=== PATIENT | male | born 1960 | race Caucasian/White ===

== ENCOUNTER 2017-06-28 14:11 | Inpatient (IN) | payer BC, OTHER ==
--- NOTE | 2017-06-28 14:31 | DR.SOBA ---
HPI - Time Seen Time seen: 14:30 - Primary Care Physician Primary Care Physician: TRENA - HPI Comment HPI Comment: PATIENT ON HOME OXYGEN. LOW OXYGEN SATURATION IN ED. WEAK AND NOT FEELING GOOD. - Complaints Chief Complaint Doctors Comments: INCREASING SOB, CHEST PAIN, FEVER, CHILLS AND WEAKNESS TIMES FEW DAYS. TODAY, WORSE AND GLUCOSE HIGH. Chief Complaint:: DIFF BREATHING, WITH WEAKNESS. LOW GRADE FEVER AND SHAKING CHILLS, RED AREA TO RIGHT LATERAL ABD Self Treatment fo Chief Complaint: USES HOME O2 - Reviewed Nurses Notes Reviewed: Yes - Source History Provided: Patient, EMS - Mode of Arrival Mode of Arrival: EMS - Timing Onset of Chief Complaint: 06/28/17 - Duration Duration: Days - Context Onset:: At Rest PE Risk Factors:: None History of:: COPD, CHF, Hyperventiliation Currently on:: Inhaled Bronchodilators Prehospital Care:: Inhaled B2 - Modifying Factors Worsens:: Lying Flat Improves:: Other (NONE) - Associated Signs and Symptoms Associated Signs and Symptoms: Fever, Wheeze, Cough, Nasal Congestion, Chest Pain, Leg Swelling - If Chest Pain Quality: Sharp, Pressure like Location: Substernal, Chest Wall - If Cough Cough: Productive, Yellow PMH - PMH Past Medical History: Yes Past Medical History: Arthritis, Asthma, CHF, COPD, Diabetes, Gout, Headaches, Hypertension, Kidney Stones Past Surgical History: Yes Surgical History: Appendectomy, Ortho Surgery - Family History History of Family Medical Conditions: Yes Family Medical History: Diabetes Mellitus, [place], Sudden Cardiac , Hypertension - Social History Type of Tobacco Use: None Alcohol Use: None Do you use any recreational Drugs:: No Lives With: Alone Lives Where: Home - infectious screening In the last 2 months have you had wt loss of >10#?: NO Have you had fever, night sweats or hemotysis?: No Have you traveled outside the country in the last 6 months?: No Isolation: Standard ROS - Review of Systems Constitutional: Chills, Weakness, Fatigue, Loss of Appetite Eyes: No Symptoms Reported. negative: Eye Pain, Discharge ENTM: No Symptoms Reported, Nose Discharge, Nose Congestion, Throat Pain. negative: Ear Pain Respiratoy: Productive Cough, Short of Breath, Wheezing Cardiovascular: Chest Pain, Edema, Palpitations Gastrointestinal/Abdominal: Abdominal Pain, Nausea Genitourinary: No Symptoms Reported. negative: Dysuria, Frequency, Hematuria Neurological: Headache, Weakness, Dizziness Musculoskeletal: Muscle Pain Integumentary: Change in Color, Rash (ABDOMINAL WALL) Hematologic/Lymphatic: Easy Bleeding, Easy Bruising Endocrine: Increased Thirst, Increased Urine All Other Systems: Reviewed and Negative PE - Vital Signs Vitals: Temperature 100.0 F Pulse Rate 119 Respiratory Rate 22 Blood Pressure [Right Arm] 121/60 Blood Pressure [Left Arm] 169/90 Blood Pressure 135/70 O2 Sat by Pulse Oximetry 94 - General Limitations: No Limitations General Appearance: Alert - Head Head Exam: Normal Inspection - Eyes Eye exam: Normal Appearance - ENT ENT Exam: Normal External Ear Exam - Neck Neck Exam: Trachea Midline - Chest Chest Inspection: Symmetric Chest Wall Rise - Respiratory Respiratory Exam: Accessory Muscle Use, Respiratory Distress Respiratory Exam: Bilateral Wheezing, Bilateral Rales, Bilateral Rhonchi, Upper Wheezing, Upper Rhonchi, Lower Wheezing, Lower Rales, Lower Rhonchi - Cardiovascular Cardiovascular Exam: Regular Rate, Normal Rhythm, Normal Heart Sounds - Abdominal Exam Abdominal Exam: Normal Bowel Sounds, Soft. negative: Tenderness - Extremities Extremities Exam: Edema - Back Back Exam: Normal Inspection - Neurologic Neurological Exam: Alert, Oriented X3 - Psychiatric Psychiatric Exam: Anxious - Skin Skin Exam: Erythema MDM - Differential Diagnosis Differential Diagnosis: Bronchitis, CHF, COPD, Mycardial Infarction, Pneumonia, Pneumothorax, Pulmonary embolism, Respiratory Insufficiency Course - Treatment Treatment: SEE ORDERS. IV FLUIDS AND IV ANTIBIOTICS IN ED. - Consultation Consultation Comments: DISCUSS PATIENT WITH DR. ALBRECHT. HE WILL ADMIT PATIENT. - Education/Counseling Education/Counseling: Patient, Education Educated On: Treatment, Diagnosis ROR - Labs Reviewed Laboratory Results Reviewed?: Yes Result Diagrams: 06/30/17 04:11 06/30/17 04:11 Laboratory: 06/28/17 14:40 Blood Blood Culture - Preliminary 06/28/17 14:40 Blood Blood Culture - Preliminary WBC 8.1 X10^3/uL (3.6-10.0) 06/30/17 04:11 RBC 4.21 X10^6/uL (4.7-6.0) L 06/30/17 04:11 Hgb 12.5 g/dL (13.5-18.0) L 06/30/17 04:11 Hct 38.6 % (42.0-54.0) L 06/30/17 04:11 MCV 91.9 fL (80.0-100.0) 06/30/17 04:11 MCH 29.7 pg (27.0-34.0) 06/30/17 04:11 MCHC 32.4 g/dL (33.0-35.0) L 06/30/17 04:11 RDW 15.4 % (11.6-16.5) 06/30/17 04:11 Plt Count 108 X10^3/uL (150.0-450.0) L 06/30/17 04:11 Plt Count Comment Decreased (ADEQUATE) 06/29/17 04:55 MPV 8.1 fL (7.4-11.0) 06/30/17 04:11 Neut % 81.8 % (42.0-75.0) H 06/30/17 04:11 Lymph % 10.6 % (21.0-51.0) L 06/30/17 04:11 [place] % 4.9 % (0.0-13.0) 06/30/17 04:11 Eos % 2.0 % (0.9-2.9) 06/30/17 04:11 Baso % 0.7 % (0.2-1.0) 06/30/17 04:11 Neut # 6.7 x10^3/uL (2.2-4.8) H 06/30/17 04:11 Lymph # 0.9 X10^3/uL (1.3-2.9) L 06/30/17 04:11 [place] # 0.4 x10^3/uL (0.3-0.8) 06/30/17 04:11 Eos # 0.2 x10^3/uL (0.0-0.2) 06/30/17 04:11 Baso # 0.1 X10^3/uL (0.0-0.1) 06/30/17 04:11 Absolute Nucleated RBC 0.3 /100WBC 06/30/17 04:11 Total Counted 100 06/29/17 04:55 Neutrophils % (Manual) 82 % (39-76) H 06/29/17 04:55 Band Neutrophils % 11 % (0-10) H 06/29/17 04:55 Lymphocytes % (Manual) 6 % (13-43) L 06/29/17 04:55 Monocytes % (Manual) 1 % (4-9) L 06/29/17 04:55 Plt Morphology Comment Normal (NORMAL) 06/29/17 04:55 RBC Morphology Normal (NORMAL) 06/29/17 04:55 Hypochromasia Slight A 06/28/17 14:40 Stomatocytes Present 06/28/17 14:40 Sample Site Lrad 06/30/17 05:50 ABG pH 7.300 (7.35-7.45) L 06/30/17 05:50 ABG pCO2 74.0 mmHg (35.0-45.0) H* 06/30/17 05:50 ABG pO2 57.0 mmHg (80.0-100.0) L 06/30/17 05:50 ABG HCO3 36.4 mmol/L (22-26) H* 06/30/17 05:50 ABG O2 Saturation 86.0 % (90-100) L 06/30/17 05:50 ABG Base Excess 7.5 mmol/L (-2.0-2.0) H 06/30/17 05:50 Clint Test Pos 06/30/17 05:50 A-a Gradient 79.0 mmHg 06/30/17 05:50 FiO2 32.000 06/30/17 05:50 Blood Gas Comments [place] abg well-mtf 06/30/17 05:50 Sodium 139 mmol/L (136-145) 06/30/17 04:11 Corrected Sodium 142 mmol/L (136-145) 06/30/17 04:11 Potassium 4.2 mmol/L (3.5-5.1) 06/30/17 04:11 Chloride 102 mmol/L (98-107) 06/30/17 04:11 Carbon Dioxide 33.0 mmol/L (21-32) H 06/30/17 04:11 BUN 11 mg/dL (7-18) 06/30/17 04:11 Creatinine 1.33 mg/dL (0.70-1.30) H 06/30/17 04:11 Est GFR (MDRD) Af Amer > 60 (>60) 06/30/17 04:11 Est GFR (MDRD) Non-Af 59 (>60) 06/30/17 04:11 Glucose 238 mg/dL (65-99) H 06/30/17 04:11 Hemoglobin A1c 12.2 % (4.5-6.2) H 06/29/17 04:55 Calcium 7.4 mg/dL (8.5-10.1) L 06/30/17 04:11 Corrected Calcium 8.7 mg/dL (8.5-10.1) 06/30/17 04:11 Total Bilirubin 0.30 mg/dL (0.2-1.0) 06/30/17 04:11 AST 24 Units/L (15-37) 06/30/17 04:11 ALT 19 Units/L (12-78) 06/30/17 04:11 Alkaline Phosphatase 111 Units/L (46-116) 06/30/17 04:11 Creatine Kinase 22 Units/L (39-308) L 06/29/17 04:55 CK-MB (CK-2) < 1.0 ng/mL (0-4.0) 06/29/17 04:55 CK/CKMB % Calc 4.6 % (<4) 06/29/17 04:55 Troponin I < 0.02 ng/mL (0-1.5) 06/29/17 04:55 B-Natriuretic Peptide 52.3 pg/mL (0-79) 06/28/17 14:40 Total Protein 6.1 g/dL (6.4-8.2) L 06/30/17 04:11 Albumin 2.4 g/dL (3.4-5.0) L 06/30/17 04:11 Globulin 3.7 g/dL (2.5-4.5) 06/30/17 04:11 Albumin/Globulin Ratio 0.6 Ratio (1.1-2.1) L 06/30/17 04:11 Specimen Type Clean catch urine 06/28/17 16:14 Urine Color Yellow (YELLOW) 06/28/17 16:14 Urine Appearance Slightly hazy (CLEAR) 06/28/17 16:14 Urine pH 8.0 (5.0 - 8.0) 06/28/17 16:14 Ur Specific [place] 1.010 (1.000-1.030) 06/28/17 16:14 Urine Protein 2+ (NEGATIVE) 06/28/17 16:14 Urine Glucose (UA) 4+ (NEGATIVE) 06/28/17 16:14 Urine Ketones 3+ (NEGATIVE) 06/28/17 16:14 Urine Occult Blood 1+ (NEGATIVE) 06/28/17 16:14 Urine Nitrite Negative (NEGATIVE) 06/28/17 16:14 Urine Bilirubin Negative (NEGATIVE) 06/28/17 16:14 Urine Urobilinogen Normal (NORMAL) 06/28/17 16:14 Ur Leukocyte Esterase 1+ (NEGATIVE) 06/28/17 16:14 Urine RBC 8-10 /HPF (NEGATIVE) 06/28/17 16:14 Urine WBC 2-3 /HPF (NEGATIVE) 06/28/17 16:14 Ur Squamous Epith Cells Few /HPF (NEGATIVE) 06/28/17 16:14 Amorphous Sediment Trace /HPF (NEGATIVE) 06/28/17 16:14 Urine Bacteria Trace /HPF (NEGATIVE) 06/28/17 16:14 Ur Culture Indicated? No/not indicated 06/28/17 16:14 - XRAY XRAY Interpreted by: Radiologist XRAY Findings: REPORT DISCUSS WITH PATIENT. - EKG Rhythm: NSR (EKG NOTED) - Diagnosis Discharge Problem: Hyperglycemia, Cellulitis, abdominal wall Pneumonia Qualifiers: Pneumonia type: due to unspecified organism Laterality: right Lung location: lower lobe of lung Qualified Code(s): J18.1 - Lobar pneumonia, unspecified organism - Discharge Plan Disposition: ADMITTED INPATIENT Condition: Stable - Follow ups/Referrals - Instructions
[2017-06-28 15:14] LABS: BASOPHILS % (AUTO) 0.1 % (0.2-1.0); EOSINOPHILS % (AUTO) 0.3 % (0.9-2.9); HEMATOCRIT 41.7 % (42.0-54.0); HEMOGLOBIN 13.2 g/dL (13.5-18.0); LYMPHOCYTES # (AUTO) 0.3 X10^3/uL (1.3-2.9); LYMPHOCYTES % (AUTO) 1.8 % (21.0-51.0); MEAN CORPUSCULAR HEMOGLOBIN 29.3 pg (27.0-34.0); MEAN CORPUSCULAR HGB CONC 31.6 g/dL (33.0-35.0); MEAN CORPUSCULAR VOLUME 92.8 fL (80.0-100.0); MEAN PLATELET VOLUME 6.7 fL (7.4-11.0); MONOCYTES # (AUTO) 0.3 x10^3/uL (0.3-0.8); MONOCYTES % (AUTO) 1.8 % (0.0-13.0); NEUTROPHILS # (AUTO) 16.2 x10^3/uL (2.2-4.8); PLATELET COUNT 157 X10^3/uL (150.0-450.0); RED CELL DISTRIBUTION WIDTH 14.8 % (11.6-16.5); WHITE BLOOD COUNT 16.9 X10^3/uL (3.6-10.0)
[2017-06-28 15:30] LABS: ALANINE AMINOTRANSFERASE 22 Units/L (12-78); ALKALINE PHOSPHATASE 146 Units/L (46-116); ASPARTATE AMINO TRANSFERASE 14 Units/L (15-37); BLOOD UREA NITROGEN 9 mg/dL (7-18); CALCIUM 7.9 mg/dL (8.5-10.1); CARBON DIOXIDE 37.6 mmol/L (21-32); CHLORIDE 98 mmol/L (98-107); CKMB % 4.2 % (<4); COR CA(FOR HYPOALB) 8.7 mg/dL (8.5-10.1); COR NA(FOR HYPERGLY) 143 mmol/L (136-145); CREATINE KINASE 24 Units/L (39-308); CREATINE KINASE MB < 1.0 ng/mL (0-4.0); CREATININE 1.26 mg/dL (0.70-1.30); GLUCOSE 349 mg/dL (65-99); SODIUM 137 mmol/L (136-145); TROPONIN I < 0.02 ng/mL (0-1.5); eGFR BLACK RACES > 60 (>60); eGFR NON BLACK RACES > 60 (>60)
[2017-06-28 15:44] LABS: B-TYPE NATRIURETIC PEPTIDE 52.3 pg/mL (0-79)
[2017-06-28 15:54] LABS: BAND NEUTROPHILS % 15 % (0-10); HYPOCHROMASIA SLIGHT; PLATELET MORPHOLOGY COMMENT NORMAL (NORMAL)
[2017-06-28 15:55] LABS: STOMATOCYTES PRESENT
[2017-06-28 16:21] LABS: BILIRUBIN,URINE NEGATIVE (NEGATIVE); BLOOD/HEMOGLOBIN,URINE 1+ (NEGATIVE); GLUCOSE, URINE 4+ (NEGATIVE); KETONES,URINE 3+ (NEGATIVE); LEUKOCYTE ESTERASE ,URINE 1+ (NEGATIVE); NITRITES,URINE NEGATIVE (NEGATIVE); PROTEIN,URINE 2+ (NEGATIVE); UROBILINOGEN,URINE NORMAL (NORMAL)
[2017-06-28 16:33] LABS: AMORPHOUS SEDIMENT,UR TRACE /HPF (NEGATIVE); APPEARANCE,URINE SLIGHTLY HAZY (CLEAR); BACTERIA,URINE TRACE /HPF (NEGATIVE); COLOR,URINE YELLOW (YELLOW); SQUAMOUS EPITHELIAL CELL,UR FEW /HPF (NEGATIVE)
[2017-06-28] MEDS ORDERED: TYLENOL 500 MG TAB EXTRA STRENGTH PO ONE ×2 (17:14→17:25)
[2017-06-28] MEDS: NS 1000 ML 1,000 ML IV SCH (17:38)
[2017-06-28] MEDS ORDERED: ZOSYN VIAL 3.375 GM 3.375 GM in NS 100 ML IV + SPIKE MINIBAG* 100 ML IV ONE (17:42)
--- NOTE | 2017-06-28 17:58 | CT ---
HISTORY: difficulty breathing Study: CT chest without contrast. Comparison: 10/10/2014. Technique: Multiple axial images of the chest were obtained from the thoracic inlet to the upper abd omen without the administration of IV contrast. Automated dose control was utilized. Findings: The thyroid gland is unremarkable. The aorta and pulmonary arteries are normal caliber. There small lymph nodes scattered along the right paratracheal and pretracheal region measuring up to 10 mm whic h are unchanged. There is a 2.5 cm subcarinal lymph node on the right which measured 3.2 cm previous ly. There is mild pleural-based opacities along the right lower lobe posteriorly which extends super iorly and is less prominent . There is a small 3 mm subpleural nodule along the right upper lobe pos teriorly seen on image 21 of series 5 and is more apparent . No effusion is seen. There is no pneumo thorax. No fracture is seen. The adrenals are normal and the visualized upper abdomen is otherwise u nremarkable. Moderate degenerative changes are seen throughout the spine with no aggressive osseous lesion. IMPRESSION: Mild subsegmental atelectasis vs scarring or early infiltrates along the right lower lobe which is l ess prominent, recommend followup to assure stability. 3 mm subpleural nodule along the right upper lobe posteriorly which is more apparent, suggest short -term followup . Mildly enlarged mediastinal lymph nodes which are less prominent or unchanged . Suggest continued fo llowup to assure long-term stability. Reported By:
[2017-06-28] MEDS ORDERED: NS 100 ML IV + SPIKE MINIBAG* 100 ML IV ONE (18:02)
[2017-06-28] MEDS ORDERED: ZOSYN VIAL 3.375 GM IV ONE (18:03)
[2017-06-28] MEDS ORDERED: TYLENOL 325 MG TAB PO PRN (21:45)
[2017-06-28 21:46] LABS: CKMB % 3.9 % (<4); CREATINE KINASE 26 Units/L (39-308); CREATINE KINASE MB < 1.0 ng/mL (0-4.0); TROPONIN I < 0.02 ng/mL (0-1.5)
[2017-06-28] MEDS: CLEOCIN 600 MG IV PREMIX 600 MG/50 ML BAG IV SCH (21:47)
[2017-06-28] MEDS: HumuLIN R SC PRN (21:48)
[2017-06-28 22:23] LABS: ABG ALLEN TEST POS; ABG HCO3 41.1 mmol/L (22-26)
[2017-06-28] MEDS ORDERED: SALINE 3% 15 ML NEB TX NEB ONE (23:17)
[2017-06-28] MEDS: NYSTATIN POWDER TOP SCH (23:18)
[2017-06-29] MEDS: DUONEB 0.5 MG/3 MG NEB SCH ×4 (00:37→17:15)
[2017-06-29] MEDS: ZOSYN VIAL 3.375 GM 3.375 GM in NS 100 ML IV + SPIKE MINIBAG* 100 ML IV SCH ×4 (01:20→21:17)
[2017-06-29] MEDS: NS 1000 ML 1,000 ML IV SCH ×5 (01:21→21:19)
[2017-06-29 05:28] LABS: BASOPHILS % (AUTO) 0.2 % (0.2-1.0); EOSINOPHILS % (AUTO) 0.1 % (0.9-2.9); HEMATOCRIT 39.2 % (42.0-54.0); HEMOGLOBIN 12.4 g/dL (13.5-18.0); LYMPHOCYTES # (AUTO) 0.7 X10^3/uL (1.3-2.9); LYMPHOCYTES % (AUTO) 5.4 % (21.0-51.0); MEAN CORPUSCULAR HEMOGLOBIN 28.9 pg (27.0-34.0); MEAN CORPUSCULAR HGB CONC 31.7 g/dL (33.0-35.0); MEAN CORPUSCULAR VOLUME 91.4 fL (80.0-100.0); MEAN PLATELET VOLUME 6.5 fL (7.4-11.0); MONOCYTES # (AUTO) 0.3 x10^3/uL (0.3-0.8); MONOCYTES % (AUTO) 2.8 % (0.0-13.0); NEUTROPHILS % (AUTO) 91.5 % (42.0-75.0); PLATELET COUNT 133 X10^3/uL (150.0-450.0); RED BLOOD COUNT 4.29 X10^6/uL (4.7-6.0); RED CELL DISTRIBUTION WIDTH 15.3 % (11.6-16.5)
[2017-06-29 05:34] LABS: ABG BASE EXCESS 11.7 mmol/L (-2.0-2.0)
[2017-06-29 05:36] LABS: ABG ALLEN TEST POS
[2017-06-29 05:47] LABS: ALANINE AMINOTRANSFERASE 20 Units/L (12-78); ALBUMIN 2.5 g/dL (3.4-5.0); ALKALINE PHOSPHATASE 122 Units/L (46-116); ASPARTATE AMINO TRANSFERASE 14 Units/L (15-37); BLOOD UREA NITROGEN 9 mg/dL (7-18); CALCIUM 7.6 mg/dL (8.5-10.1); CARBON DIOXIDE 36.6 mmol/L (21-32); CHLORIDE 100 mmol/L (98-107); CKMB % 4.6 % (<4); COR CA(FOR HYPOALB) 8.8 mg/dL (8.5-10.1); COR NA(FOR HYPERGLY) 141 mmol/L (136-145); CREATINE KINASE 22 Units/L (39-308); CREATINE KINASE MB < 1.0 ng/mL (0-4.0); CREATININE 1.11 mg/dL (0.70-1.30); GLUCOSE 280 mg/dL (65-99); SODIUM 137 mmol/L (136-145); TOTAL PROTEIN 6.1 g/dL (6.4-8.2); TROPONIN I < 0.02 ng/mL (0-1.5); eGFR BLACK RACES > 60 (>60); eGFR NON BLACK RACES > 60 (>60)
[2017-06-29 06:01] LABS: BAND NEUTROPHILS % 11 % (0-10); PLATELET MORPHOLOGY COMMENT NORMAL (NORMAL)
[2017-06-29] MEDS: CLEOCIN 600 MG IV PREMIX 600 MG/50 ML BAG IV SCH (06:02)
[2017-06-29] MEDS: HumuLIN R SC PRN ×3 (06:22→21:19)
[2017-06-29] MEDS ORDERED: PATIENT'S HOME MEDICATION (Budesonide/Formoterol Fumarate [Symbicort 160-4.5 Mcg/Act (6 G) INH SCH (10:45)
[2017-06-29] MEDS ORDERED: PATIENT'S HOME MEDICATION (Folic Acid [Folic Acid] 1 MG) PO SCH (10:45)
[2017-06-29] MEDS ORDERED: NIFEDIPINE 30 MG PO SCH (10:45)
[2017-06-29] MEDS ORDERED: PATIENT'S HOME MEDICATION (Losartan Potassium [Losartan Potassium] 100 MG) PO SCH (10:45)
[2017-06-29] MEDS ORDERED: PHARMACY CONSULT - DOSE _____ XX SCH (11:00)
--- NOTE | 2017-06-29 11:50 | DR.H&P ---
H&P - History & Physical for Day of: H&P Date: 06/29/17 - Chief Complaint Chief Complaint: SHORTNSS OF BREATH, WEAKNESS, FEVER, REDNESS TO ABDOMEN - Allergies Allergies/Adverse Reactions: Allergies Allergy/AdvReac Type Severity Reaction Status Date / Time No Known Drug Allergies Allergy Verified 06/28/17 14:35 - History of Present Illness History of Present Illness: IS A 57 YEAR OLD PATIENT OF OURS WHO PRESENTED TO THE EMERGENCY ROOM WITH COMPLAINTS OF SHORTNESS OF BREATH, WEAKNESS , AND FEVER THAT STARTED THIS MORNING. HE ALSO COMPLAINED OF REDNESS TO RIGHT SIDE ABDOMEN. ON EXAMINATION, LUNGS WERE NOTED WITH SCATTERED WHEEZING. RIGHT SIDE ABDOMINAL FOLDS AND GROIN NOTED WITH REDNESS AND DRAINAGE. ON ARRIVAL TO ER , VITALS WERE 100.0, 119, 22, 94%, 135/70. CBC REPORTED WBC 16.9, RBC 4.50, HGB 13.2, HCT 41.7. CMP WNL EXCEPT CARBON DIOXIDE 37.6, GLUCOSE 349, CALCIUM 7.9 , AST 14, ALKALINE PHOSPHATASE 146, CREATINIE KINASE 24, ALBUMIN 3.0. ABG REPORTED PH 7.330, PC02 78, P02 107, HC03 41.1, 02 98. CARDIAC ENZYMES WNL. EKG REPORTED SINUS TACHYCARDIA WITH RATE OF 118. CHEST CT WAS OBTAINED AND REPORTED SUBSEGMENTAL ATELECTASIS VS SCARRING OR EARLY INFILTRATES ALONG THE RIGHT LOWER LOBE WHICH IS LESS PROMINENT, 3MM SUBPLEURAL NODULE ALONG THE RIGHT UPPER LOBE POSTERIORLY, AND MILDLY ENLARGED MEDIASTINAL LYMPH NODES WHICH ARE LESS PROMINENT OR UNCHANGED. HE WAS GIVEN TYLENOL 1 GM, ZYSUN 3.375GM, CLEOCIN 600MG , AND NEB TX IN ER. TEMPERATURE DECREASED TO 99.4. WE ADMITTED PATIENT FOR FURTHER TREATMENT AND EVALUATION. WE STARTED HIM ON CLEOCIN 600MG Q8H, ZOSYN 3.375 Q8H, NS @150ML/HR, NYSTATIN FOR WOUNDS, AND SLIDING SCALE INSULIN. WE PLANNED TO RECHECK LABS AND FOLLOW UP WITH PATIENT IN AM. - Past Medical History Past Medical History: Arthritis, Asthma, CHF, COPD, Coronary Artery Disease, Diabetes, Dyslipidemia, GERD, Gout, Headaches, Hypertension, Kidney Stones Additional Medical History: Cataracts, Glaucoma, Ear Infections, Pneumonia, Pulmonary Edema, Gout, Back Pain, Skin Cancer - Past Surgical History Surgical History: Appendectomy, Ortho Surgery Additional Surgical History: Cataract Surgery, Left Ankle - Family History Family Medical History: Diabetes Mellitus, [place], Sudden Cardiac , Hypertension - Social History Does patient currently use any type of tobacco product: No Have you used tobacco products in the last 12 months: No Type of Tobacco Use: None Alcohol Use: None Drug Use: None - Medications Home Medications: Aspirin [Adult Low Dose Aspirin EC] 1 tab PO DAILY 06/28/17 [History Confirmed 06/28/17] - Review of Systems Constitutional: See HPI, Fever, Weakness Eyes: denies: No Symptoms Reported, See HPI, Pain, Vision Change, Conjunctivae Inflammation, Eyelid Inflammation, Redness, Other ENT: No Symptoms Reported. denies: See HPI, Ear Pain, Ear Discharge, Nose Pain , Nose Discharge, Nose Congestion, Mouth Pain, Mouth Swelling, Throat Pain, Throat Swelling, Other Respiratory: See HPI, Shortness of Breath, SOB with Excertion, Wheezing Cardiovascular: No Symptoms Reported. denies: Chest Pain, See HPI, Palpitations , Orthopnea, Paroxysmal Noc. Dyspnea, Edema, Light Headedness, Other Gastrointestinal: No Symptoms Reported. denies: See HPI, Nausea, Vomiting, Abdominal Pain, Diarrhea, Constipation, Melena, Hematochezia, Other Genitourinary: No Symptoms Reported. denies: See HPI, Dysuria, Frequency, Incontinence, Hematuria, Retention, Other Musculoskeletal: No Symptoms Reported. denies: See HPI, Shoulder Pain, Arm Pain , Back Pain, Hand Pain, Leg Pain, Foot Pain, Neck Pain, Other Skin: See HPI, Rash, Wound. denies: No Symptoms Reported, Lesions, Jaundice, Bruising, Ecchymosis, Other Neurological: No Symptoms Reported. denies: See HPI, Weakness, Numbness, Incoordination, Change in Speech, Confusion, Seizures, Other - Physical Exam Vital Signs: Temperature 99.3 F Pulse Rate [Right Radial] 102 Pulse Rate 104 Respiratory Rate 22 Blood Pressure [Left Arm] 126/67 Blood Pressure 135/70 O2 Sat by Pulse Oximetry 93 Oriented: Normal. negative: Time, Person, Place, Not Oriented, Unable to test, Other Eyes: Normal. negative: Blurred Vision, Diplopia, Discharge, Pain, Redness, Photophobia, Other Ear: Normal. negative: Right, Left, Swelling, Ecchymosis, Hemotypanum, Abrasion , Laceration Nose: Normal. negative: Injected, Discharge, Blood, Other Throat: Normal. negative: Tonsillar Hypertrophy, Red, Exudate, Dry, Other Respiratory: Wheezes Throughout Cardiovascular: Tachycardia. negative: Normal : Normal. negative: Dysuria, Hematuria, Frequency, Discharge, Testicular Pain , Bleeding, , Other Auscultation: Bowel Sounds: Normal. negative: Bruit, Absent, Increased, Decreased, High Pitched, Other Palpation: Normal. negative: Spleen Enlarged, Liver Enlarged, Mass Pulsatile, Other Tenderness: Normal. negative: Diffuse, RUQ, RLQ, LUQ, LLQ, Epigastric, Periumbilical, Suprapubic, Mild, Moderate, Severe, Rebound, Guarding, Rigidity, Other Skin: Rash (ABDOMINAL FOLDS AND GROIN), Red, Wound Musculoskeletal: Normal. negative: Right, Left, Shoulder, Clavicle, Arm, Elbow , Forearm, Wrist, Hand, Hip, Thigh, Knee, Leg, Ankle, Foot, Back:Thoracic, Back: Lumbar, Back:Midline, Back:Paraspinous, Pelvis, Swelling, Tender, Deformity, Pulse Deficit, Motor Deficit, Sensory Deficit, Instability, Crepitance Psychiatric: Normal. negative: Anxiety, Depression, Agitation, Other Mood Description: Calm. negative: Angry, Apathetic, Depressed, Fearful, Flat, Happy, Hostile, Sad, Suspicious, Withdrawn, Anxious, Appropriate, Labile Affect: Normal Speech Pattern: Clear - Assessment/Plan (1) Pneumonia Qualifiers: Pneumonia type: due to unspecified organism Aspiration pneumonia type: A Laterality: right Lung location: lower lobe of lung Qualified Code(s): J18.1 - Lobar pneumonia, unspecified organism Status: Acute Plan: CLEOCIN 600MG IV Q8H, ZOSYN 3.375GM IV 8H, DUONEBS, SUPPLEMENTAL OXYGEN, CONTINUE TO MONITOR (2) Hyperglycemia Status: Acute Plan: SLIDING SCALE INSULIN, CHECK OTBS, CONTINUE TO MONITOR (3) Cellulitis of abdominal wall Status: Acute Plan: CLEOCIN 600MG IV Q8H, ZOSYN 3.375GM IV Q8H, NYSTATIN POWDER, CONTINUE TO MONITOR
[2017-06-29] MEDS: ZyrTEC TAB 10 MG PO SCH (12:16)
[2017-06-29] MEDS: ASPIRIN EC 81 MG PO SCH (12:16)
[2017-06-29] MEDS: ELIQUIS PO SCH ×2 (12:16→21:18)
[2017-06-29] MEDS: LEVAQUIN PREMIX IV 750 MG 750 MG/150 ML BAG IV SCH (12:17)
--- NOTE | 2017-06-29 13:31 | PCM.PROG ---
Progress Note - Progress Note for Day of Date: 06/29/17 - Subjective Subjective: IS ALERT AND ORIENTED, SITTING UP IN BED ON MORNING ROUNDS. HE IS NOTED WITH COMPLAINTS OF SHORTNESS OF BREATH, BILATERAL HIP PAIN, AND WEAKNESS. ABDOMINAL FOLDS AND GROIN REMAIN RED AND NOTED WITH DRAINING. PITTING EDEMA NOTED TO BILATERAL LOWER EXTREMITIES. LUNGS ARE NOTED WITH SCATTERED WHEEZING. VITALS THIS AM ARE 99.3-102-22-93%-126/67. CBC REPORTS WBC 12, RBC 4.29, HGB 12.4, HCT 39.2. CMP WNL EXCEPT CARBON DIOXIDE 36.6, GLUCOSE 280, A1C 12.2, CALCIUM 7.6, AST 14, ALKALINE PHOSPHATASE 122, CREATINE KINASE 22 , TOTAL PROTEIN 6.1, ALBUMIN 2.5. CARDIAC ENZYMES AND EKGS WNL. WE WILL DISCONTINUE CLEOCIN AND START LEVAQUIN IV DAILY. WE WILL ORDER TORADOL 30MG IV Q6H PRN FOR HIS HIP PAIN. WE PLAN TO RECHECK LABS AND FOLLOW UP WITH ANDREINA IN AM. - Past Medical Family Social History Past Med/Fam/Surg Hx: No changes since H&P Allergies: Allergies No Known Drug Allergies Allergy (Verified 06/28/17 14:35) - Review of Systems ROS: No change since H&P - Vital Signs and I&O's Vital Signs: Temperature 99.3 F Pulse Rate [Right Radial] 102 Pulse Rate 104 Respiratory Rate 22 Blood Pressure [Left Arm] 126/67 Blood Pressure 135/70 O2 Sat by Pulse Oximetry 93 Intake and Output: Intake & Output 06/27/17 06/28/17 06/29/17 06/30/17 11:59 11:59 11:59 11:59 Intake Total 1450 Output Total 550 Balance 900 - Physical Exam Oriented: Normal. negative: Time, Person, Place, Not Oriented, Unable to test, Other Eyes: Normal. negative: Blurred Vision, Diplopia, Discharge, Pain, Redness, Photophobia, Other Ear: Normal. negative: Right, Left, Swelling, Ecchymosis, Hemotypanum, Abrasion , Laceration Nose: Normal. negative: Injected, Discharge, Blood, Other Throat: Normal. negative: Tonsillar Hypertrophy, Red, Exudate, Dry, Other Respiratory: Right, Left, Wheezes Cardiovascular: Tachycardia. negative: Normal : Normal. negative: Dysuria, Hematuria, Frequency, Discharge, Testicular Pain , Bleeding, , Other Auscultation: Bowel Sounds: Normal. negative: Bruit, Absent, Increased, Decreased, High Pitched, Other Palpation: Normal Tenderness: Normal. negative: Diffuse, RUQ, RLQ, LUQ, LLQ, Epigastric, Periumbilical, Suprapubic, Mild, Moderate, Severe, Rebound, Guarding, Rigidity, Other Skin: Rash (ABDOMINAL FOLDS AND GROIN), Red, Wound Musculoskeletal: Normal. negative: Right, Left, Shoulder, Clavicle, Arm, Elbow , Forearm, Wrist, Hand, Hip, Thigh, Knee, Leg, Ankle, Foot, Back:Thoracic, Back: Lumbar, Back:Midline, Back:Paraspinous, Pelvis, Swelling, Tender, Deformity, Pulse Deficit, Motor Deficit, Sensory Deficit, Instability, Crepitance Psychiatric: Normal. negative: Anxiety, Depression, Agitation, Other Mood Description: Calm. negative: Angry, Apathetic, Depressed, Fearful, Flat, Happy, Hostile, Sad, Suspicious, Withdrawn, Anxious, Appropriate, Labile Affect: Normal Speech Pattern: Clear - Laboratory and Diagnostics Result Diagrams: 06/29/17 04:55 06/29/17 04:55 Labs: Laboratory WBC 12.0 X10^3/uL (3.6-10.0) H 06/29/17 04:55 RBC 4.29 X10^6/uL (4.7-6.0) L 06/29/17 04:55 Hgb 12.4 g/dL (13.5-18.0) L 06/29/17 04:55 Hct 39.2 % (42.0-54.0) L 06/29/17 04:55 MCV 91.4 fL (80.0-100.0) 06/29/17 04:55 MCH 28.9 pg (27.0-34.0) 06/29/17 04:55 MCHC 31.7 g/dL (33.0-35.0) L 06/29/17 04:55 RDW 15.3 % (11.6-16.5) 06/29/17 04:55 Plt Count 133 X10^3/uL (150.0-450.0) L 06/29/17 04:55 Plt Count Comment Decreased (ADEQUATE) 06/29/17 04:55 MPV 6.5 fL (7.4-11.0) L 06/29/17 04:55 Neut % 91.5 % (42.0-75.0) H 06/29/17 04:55 Lymph % 5.4 % (21.0-51.0) L 06/29/17 04:55 [place] % 2.8 % (0.0-13.0) 06/29/17 04:55 Eos % 0.1 % (0.9-2.9) L 06/29/17 04:55 Baso % 0.2 % (0.2-1.0) 06/29/17 04:55 Neut # 11.0 x10^3/uL (2.2-4.8) H 06/29/17 04:55 Lymph # 0.7 X10^3/uL (1.3-2.9) L 06/29/17 04:55 [place] # 0.3 x10^3/uL (0.3-0.8) 06/29/17 04:55 Eos # 0.0 x10^3/uL (0.0-0.2) 06/29/17 04:55 Baso # 0.0 X10^3/uL (0.0-0.1) 06/29/17 04:55 Absolute Nucleated RBC 0.1 /100WBC 06/29/17 04:55 Total Counted 100 06/29/17 04:55 Neutrophils % (Manual) 82 % (39-76) H 06/29/17 04:55 Band Neutrophils % 11 % (0-10) H 06/29/17 04:55 Lymphocytes % (Manual) 6 % (13-43) L 06/29/17 04:55 Monocytes % (Manual) 1 % (4-9) L 06/29/17 04:55 Plt Morphology Comment Normal (NORMAL) 06/29/17 04:55 RBC Morphology Normal (NORMAL) 06/29/17 04:55 Hypochromasia Slight A 06/28/17 14:40 Stomatocytes Present 06/28/17 14:40 Sample Site L rad 06/29/17 05:21 ABG pH 7.400 (7.35-7.45) 06/29/17 05:21 ABG pCO2 63.0 mmHg (35.0-45.0) H* 06/29/17 05:21 ABG pO2 45.0 mmHg (80.0-100.0) L* 06/29/17 05:21 ABG HCO3 39.0 mmol/L (22-26) H* 06/29/17 05:21 ABG O2 Saturation 81.0 % (90-100) L* 06/29/17 05:21 ABG Base Excess 11.7 mmol/L (-2.0-2.0) H 06/29/17 05:21 Clint Test Pos 06/29/17 05:21 A-a Gradient 26.0 mmHg 06/29/17 05:21 FiO2 21.000 06/29/17 05:21 Blood Gas Comments [place] well, afh 06/29/17 05:21 Sodium 137 mmol/L (136-145) 06/29/17 04:55 Corrected Sodium 141 mmol/L (136-145) 06/29/17 04:55 Potassium 4.2 mmol/L (3.5-5.1) 06/29/17 04:55 Chloride 100 mmol/L (98-107) 06/29/17 04:55 Carbon Dioxide 36.6 mmol/L (21-32) H 06/29/17 04:55 BUN 9 mg/dL (7-18) 06/29/17 04:55 Creatinine 1.11 mg/dL (0.70-1.30) 06/29/17 04:55 Est GFR (MDRD) Af Amer > 60 (>60) 06/29/17 04:55 Est GFR (MDRD) Non-Af > 60 (>60) 06/29/17 04:55 Glucose 280 mg/dL (65-99) H 06/29/17 04:55 Hemoglobin A1c 12.2 % (4.5-6.2) H 06/29/17 04:55 Calcium 7.6 mg/dL (8.5-10.1) L 06/29/17 04:55 Corrected Calcium 8.8 mg/dL (8.5-10.1) 06/29/17 04:55 Total Bilirubin 0.50 mg/dL (0.2-1.0) 06/29/17 04:55 AST 14 Units/L (15-37) L 06/29/17 04:55 ALT 20 Units/L (12-78) 06/29/17 04:55 Alkaline Phosphatase 122 Units/L (46-116) H 06/29/17 04:55 Creatine Kinase 22 Units/L (39-308) L 06/29/17 04:55 CK-MB (CK-2) < 1.0 ng/mL (0-4.0) 06/29/17 04:55 CK/CKMB % Calc 4.6 % (<4) 06/29/17 04:55 Troponin I < 0.02 ng/mL (0-1.5) 06/29/17 04:55 B-Natriuretic Peptide 52.3 pg/mL (0-79) 06/28/17 14:40 Total Protein 6.1 g/dL (6.4-8.2) L 06/29/17 04:55 Albumin 2.5 g/dL (3.4-5.0) L 06/29/17 04:55 Globulin 3.6 g/dL (2.5-4.5) 06/29/17 04:55 Albumin/Globulin Ratio 0.7 Ratio (1.1-2.1) L 06/29/17 04:55 Specimen Type Clean catch urine 06/28/17 16:14 Urine Color Yellow (YELLOW) 06/28/17 16:14 Urine Appearance Slightly hazy (CLEAR) 06/28/17 16:14 Urine pH 8.0 (5.0 - 8.0) 06/28/17 16:14 Ur Specific [place] 1.010 (1.000-1.030) 06/28/17 16:14 Urine Protein 2+ (NEGATIVE) 06/28/17 16:14 Urine Glucose (UA) 4+ (NEGATIVE) 06/28/17 16:14 Urine Ketones 3+ (NEGATIVE) 06/28/17 16:14 Urine Occult Blood 1+ (NEGATIVE) 06/28/17 16:14 Urine Nitrite Negative (NEGATIVE) 06/28/17 16:14 Urine Bilirubin Negative (NEGATIVE) 06/28/17 16:14 Urine Urobilinogen Normal (NORMAL) 06/28/17 16:14 Ur Leukocyte Esterase 1+ (NEGATIVE) 06/28/17 16:14 Urine RBC 8-10 /HPF (NEGATIVE) 06/28/17 16:14 Urine WBC 2-3 /HPF (NEGATIVE) 06/28/17 16:14 Ur Squamous Epith Cells Few /HPF (NEGATIVE) 06/28/17 16:14 Amorphous Sediment Trace /HPF (NEGATIVE) 06/28/17 16:14 Urine Bacteria Trace /HPF (NEGATIVE) 06/28/17 16:14 Ur Culture Indicated? No/not indicated 06/28/17 16:14 - Plan (1) Pneumonia Status: Acute Qualifiers: Pneumonia type: due to unspecified organism Aspiration pneumonia type: A Laterality: right Lung location: lower lobe of lung Qualified Code(s): J18.1 - Lobar pneumonia, unspecified organism Plan: CLEOCIN 600MG IV Q8H, ZOSYN 3.375GM IV 8H, DUONEBS, SUPPLEMENTAL OXYGEN, CONTINUE TO MONITOR (2) Hyperglycemia Status: Acute Plan: SLIDING SCALE INSULIN, CHECK OTBS, CONTINUE TO MONITOR (3) Cellulitis of abdominal wall Status: Acute Plan: CLEOCIN 600MG IV Q8H, ZOSYN 3.375GM IV Q8H, NYSTATIN POWDER, CONTINUE TO MONITOR
[2017-06-29] MEDS ORDERED: NS 250 ML IV 250 ML IV ONE (16:22)
[2017-06-29] MEDS: NYSTATIN POWDER TOP SCH ×2 (16:44→21:18)
[2017-06-29] MEDS: PULMICORT NEB TX 0.5 MG NEB SCH ×2 (19:47→20:00)
[2017-06-30] MEDS: DUONEB 0.5 MG/3 MG NEB SCH ×4 (00:56→17:02)
[2017-06-30] MEDS: TORADOL 30 MG VIAL IVP PRN (02:14)
[2017-06-30] MEDS: NS 1000 ML 1,000 ML IV SCH ×4 (04:00→21:51)
[2017-06-30 05:42] LABS: BASOPHILS # (AUTO) 0.1 X10^3/uL (0.0-0.1); BASOPHILS % (AUTO) 0.7 % (0.2-1.0); EOSINOPHILS # (AUTO) 0.2 x10^3/uL (0.0-0.2); HEMATOCRIT 38.6 % (42.0-54.0); HEMOGLOBIN 12.5 g/dL (13.5-18.0); LYMPHOCYTES # (AUTO) 0.9 X10^3/uL (1.3-2.9); LYMPHOCYTES % (AUTO) 10.6 % (21.0-51.0); MEAN CORPUSCULAR HEMOGLOBIN 29.7 pg (27.0-34.0); MEAN CORPUSCULAR HGB CONC 32.4 g/dL (33.0-35.0); MEAN CORPUSCULAR VOLUME 91.9 fL (80.0-100.0); MEAN PLATELET VOLUME 8.1 fL (7.4-11.0); MONOCYTES # (AUTO) 0.4 x10^3/uL (0.3-0.8); MONOCYTES % (AUTO) 4.9 % (0.0-13.0); NEUTROPHILS # (AUTO) 6.7 x10^3/uL (2.2-4.8); NEUTROPHILS % (AUTO) 81.8 % (42.0-75.0); PLATELET COUNT 108 X10^3/uL (150.0-450.0); RED BLOOD COUNT 4.21 X10^6/uL (4.7-6.0); RED CELL DISTRIBUTION WIDTH 15.4 % (11.6-16.5); WHITE BLOOD COUNT 8.1 X10^3/uL (3.6-10.0)
[2017-06-30 05:48] LABS: ALANINE AMINOTRANSFERASE 19 Units/L (12-78); ALBUMIN 2.4 g/dL (3.4-5.0); ALKALINE PHOSPHATASE 111 Units/L (46-116); ASPARTATE AMINO TRANSFERASE 24 Units/L (15-37); BLOOD UREA NITROGEN 11 mg/dL (7-18); CALCIUM 7.4 mg/dL (8.5-10.1); CHLORIDE 102 mmol/L (98-107); COR CA(FOR HYPOALB) 8.7 mg/dL (8.5-10.1); COR NA(FOR HYPERGLY) 142 mmol/L (136-145); CREATININE 1.33 mg/dL (0.70-1.30); GLUCOSE 238 mg/dL (65-99); SODIUM 139 mmol/L (136-145); TOTAL PROTEIN 6.1 g/dL (6.4-8.2); eGFR BLACK RACES > 60 (>60); eGFR NON BLACK RACES 59 (>60)
[2017-06-30 05:57] LABS: ABG BASE EXCESS 7.5 mmol/L (-2.0-2.0)
[2017-06-30 05:58] LABS: ABG ALLEN TEST POS; ABG HCO3 36.4 mmol/L (22-26)
[2017-06-30] MEDS: ZOSYN VIAL 3.375 GM 3.375 GM in NS 100 ML IV + SPIKE MINIBAG* 100 ML IV SCH ×3 (06:13→21:55)
[2017-06-30] MEDS: HumuLIN R SC PRN ×4 (06:18→21:54)
--- NOTE | 2017-06-30 06:27 | RAD ---
HISTORY: Follow up pneumonia Study: Chest one view Comparison: January 04, 2017, CT chest June 28, 2017 Findings: The heart remains enlarged. No congestive heart failure is noted. The georgina are normal. The lungs are mildly hypoinflated but free of acute infiltrates. No pleural effusions are identified. The bony th orax is unremarkable. IMPRESSION: Cardiomegaly without congestive heart failure Lungs mildly hypoinflated but clear Reported By:
[2017-06-30 07:30] VITALS: BMI 57.7
[2017-06-30] MEDS: COZAAR PO SCH (08:46)
[2017-06-30] MEDS: ASPIRIN EC 81 MG PO SCH (08:47)
[2017-06-30] MEDS: ALBUMIN HUMAN 25%- 100ML 100 ML IV SCH (08:47)
[2017-06-30] MEDS: ELIQUIS PO SCH ×2 (08:47→21:56)
[2017-06-30] MEDS: ZyrTEC TAB 10 MG PO SCH (08:47)
[2017-06-30] MEDS: FOLIC ACID TAB 1 MG PO SCH (08:47)
[2017-06-30] MEDS: PROCARDIA XL PO SCH (08:47)
[2017-06-30] MEDS: LEVAQUIN PREMIX IV 750 MG 750 MG/150 ML BAG IV SCH (08:47)
[2017-06-30] MEDS: NYSTATIN POWDER TOP SCH ×2 (08:48→21:57)
[2017-06-30] MEDS: PULMICORT NEB TX 0.5 MG NEB SCH ×2 (09:31→20:59)
--- NOTE | 2017-06-30 10:18 | PCM.PROG ---
Progress Note - Progress Note for Day of Date: 06/30/17 - Subjective Subjective: IS ALERT AND ORIENTED, SITTING UP IN BED ON MORNING ROUNDS. HE CONTINUES WITH COMPLAINTS OF SHORTNESS OF BREATH, WEAKNESS, AND ABDOMINAL REDNESS AND DISCOMFORT. REDNESS AND YEAST NOTED TO ABDOMINAL FOLDS AND GROIN. HE CONTINUES WITH EDEMA TO BILATERAL LOWER EXTREMITIES. LUNGS CONTINUE WITH SCATTERED WHEEZING. VITALS THIS AM ARE 98.7-98-18-93%-119/61. CBC WNL EXCEPT RBC 4.21, HGB 12.5, HCT 38.6. CMP WNL EXCEPT CARBON DIOXIDE 33.0, CREATININE 1.33, GLUCOSE 238, CALCIUM 7.4, TOTAL PROTEIN 6.1, ALBUMIN 2.4. CHEST XRAY REPORTS CARDIOMEGALY WITHOUT CHF. LUNGS CLEAR. WE WILL START ALBUMIN 25% DAILY, START LANTUS 20UNITS AT HS, SOLUMEDROL 40MG IV Q8H, AND DIFLUCAN 200MG IV DAILY. WE PLAN TO RECHECK LABS AND FOLLOW UP WITH ANDREINA IN AM. - Past Medical Family Social History Past Med/Fam/Surg Hx: No changes since H&P Allergies: Allergies No Known Drug Allergies Allergy (Verified 06/28/17 14:35) - Review of Systems ROS: No change since H&P - Vital Signs and I&O's Vital Signs: Temperature 98 F Pulse Rate [Right Radial] 104 Pulse Rate 102 Respiratory Rate 20 Blood Pressure [Left Arm] 124/60 Blood Pressure 135/70 O2 Sat by Pulse Oximetry 97 Intake and Output: Intake & Output 06/27/17 06/28/17 06/29/17 06/30/17 11:59 11:59 11:59 11:59 Intake Total 1450 1940 Output Total 550 1175 Balance 900 765 - Physical Exam Oriented: Normal. negative: Time, Person, Place, Not Oriented, Unable to test, Other Eyes: Normal. negative: Blurred Vision, Diplopia, Discharge, Pain, Redness, Photophobia, Other Ear: Normal. negative: Right, Left, Swelling, Ecchymosis, Hemotypanum, Abrasion , Laceration Nose: Normal. negative: Injected, Discharge, Blood, Other Throat: Normal. negative: Tonsillar Hypertrophy, Red, Exudate, Dry, Other Respiratory: Right, Left, Wheezes Cardiovascular: Tachycardia. negative: Normal : Normal. negative: Dysuria, Hematuria, Frequency, Discharge, Testicular Pain , Bleeding, , Other Auscultation: Bowel Sounds: Normal. negative: Bruit, Absent, Increased, Decreased, High Pitched, Other Palpation: Normal Tenderness: Normal. negative: Diffuse, RUQ, RLQ, LUQ, LLQ, Epigastric, Periumbilical, Suprapubic, Mild, Moderate, Severe, Rebound, Guarding, Rigidity, Other Skin: Rash (ABDOMINAL FOLDS AND GROIN), Red, Wound Musculoskeletal: Normal. negative: Right, Left, Shoulder, Clavicle, Arm, Elbow , Forearm, Wrist, Hand, Hip, Thigh, Knee, Leg, Ankle, Foot, Back:Thoracic, Back: Lumbar, Back:Midline, Back:Paraspinous, Pelvis, Swelling, Tender, Deformity, Pulse Deficit, Motor Deficit, Sensory Deficit, Instability, Crepitance Psychiatric: Normal. negative: Anxiety, Depression, Agitation, Other Mood Description: Calm. negative: Angry, Apathetic, Depressed, Fearful, Flat, Happy, Hostile, Sad, Suspicious, Withdrawn, Anxious, Appropriate, Labile Affect: Normal Speech Pattern: Clear, Appropriate - Laboratory and Diagnostics Result Diagrams: 06/30/17 04:11 06/30/17 04:11 Labs: Laboratory WBC 8.1 X10^3/uL (3.6-10.0) 06/30/17 04:11 RBC 4.21 X10^6/uL (4.7-6.0) L 06/30/17 04:11 Hgb 12.5 g/dL (13.5-18.0) L 06/30/17 04:11 Hct 38.6 % (42.0-54.0) L 06/30/17 04:11 MCV 91.9 fL (80.0-100.0) 06/30/17 04:11 MCH 29.7 pg (27.0-34.0) 06/30/17 04:11 MCHC 32.4 g/dL (33.0-35.0) L 06/30/17 04:11 RDW 15.4 % (11.6-16.5) 06/30/17 04:11 Plt Count 108 X10^3/uL (150.0-450.0) L 06/30/17 04:11 Plt Count Comment Decreased (ADEQUATE) 06/29/17 04:55 MPV 8.1 fL (7.4-11.0) 06/30/17 04:11 Neut % 81.8 % (42.0-75.0) H 06/30/17 04:11 Lymph % 10.6 % (21.0-51.0) L 06/30/17 04:11 [place] % 4.9 % (0.0-13.0) 06/30/17 04:11 Eos % 2.0 % (0.9-2.9) 06/30/17 04:11 Baso % 0.7 % (0.2-1.0) 06/30/17 04:11 Neut # 6.7 x10^3/uL (2.2-4.8) H 06/30/17 04:11 Lymph # 0.9 X10^3/uL (1.3-2.9) L 06/30/17 04:11 [place] # 0.4 x10^3/uL (0.3-0.8) 06/30/17 04:11 Eos # 0.2 x10^3/uL (0.0-0.2) 06/30/17 04:11 Baso # 0.1 X10^3/uL (0.0-0.1) 06/30/17 04:11 Absolute Nucleated RBC 0.3 /100WBC 06/30/17 04:11 Total Counted 100 06/29/17 04:55 Neutrophils % (Manual) 82 % (39-76) H 06/29/17 04:55 Band Neutrophils % 11 % (0-10) H 06/29/17 04:55 Lymphocytes % (Manual) 6 % (13-43) L 06/29/17 04:55 Monocytes % (Manual) 1 % (4-9) L 06/29/17 04:55 Plt Morphology Comment Normal (NORMAL) 06/29/17 04:55 RBC Morphology Normal (NORMAL) 06/29/17 04:55 Hypochromasia Slight A 06/28/17 14:40 Stomatocytes Present 06/28/17 14:40 Sample Site [place] 06/30/17 05:50 ABG pH 7.300 (7.35-7.45) L 06/30/17 05:50 ABG pCO2 74.0 mmHg (35.0-45.0) H* 06/30/17 05:50 ABG pO2 57.0 mmHg (80.0-100.0) L 06/30/17 05:50 ABG HCO3 36.4 mmol/L (22-26) H* 06/30/17 05:50 ABG O2 Saturation 86.0 % (90-100) L 06/30/17 05:50 ABG Base Excess 7.5 mmol/L (-2.0-2.0) H 06/30/17 05:50 Clint Test Pos 06/30/17 05:50 A-a Gradient 79.0 mmHg 06/30/17 05:50 FiO2 32.000 06/30/17 05:50 Blood Gas Comments [place] abg well-mtf 06/30/17 05:50 Sodium 139 mmol/L (136-145) 06/30/17 04:11 Corrected Sodium 142 mmol/L (136-145) 06/30/17 04:11 Potassium 4.2 mmol/L (3.5-5.1) 06/30/17 04:11 Chloride 102 mmol/L (98-107) 06/30/17 04:11 Carbon Dioxide 33.0 mmol/L (21-32) H 06/30/17 04:11 BUN 11 mg/dL (7-18) 06/30/17 04:11 Creatinine 1.33 mg/dL (0.70-1.30) H 06/30/17 04:11 Est GFR (MDRD) Af Amer > 60 (>60) 06/30/17 04:11 Est GFR (MDRD) Non-Af 59 (>60) 06/30/17 04:11 Glucose 238 mg/dL (65-99) H 06/30/17 04:11 Hemoglobin A1c 12.2 % (4.5-6.2) H 06/29/17 04:55 Calcium 7.4 mg/dL (8.5-10.1) L 06/30/17 04:11 Corrected Calcium 8.7 mg/dL (8.5-10.1) 06/30/17 04:11 Total Bilirubin 0.30 mg/dL (0.2-1.0) 06/30/17 04:11 AST 24 Units/L (15-37) 06/30/17 04:11 ALT 19 Units/L (12-78) 06/30/17 04:11 Alkaline Phosphatase 111 Units/L (46-116) 06/30/17 04:11 Creatine Kinase 22 Units/L (39-308) L 06/29/17 04:55 CK-MB (CK-2) < 1.0 ng/mL (0-4.0) 06/29/17 04:55 CK/CKMB % Calc 4.6 % (<4) 06/29/17 04:55 Troponin I < 0.02 ng/mL (0-1.5) 06/29/17 04:55 B-Natriuretic Peptide 52.3 pg/mL (0-79) 06/28/17 14:40 Total Protein 6.1 g/dL (6.4-8.2) L 06/30/17 04:11 Albumin 2.4 g/dL (3.4-5.0) L 06/30/17 04:11 Globulin 3.7 g/dL (2.5-4.5) 06/30/17 04:11 Albumin/Globulin Ratio 0.6 Ratio (1.1-2.1) L 06/30/17 04:11 Specimen Type Clean catch urine 06/28/17 16:14 Urine Color Yellow (YELLOW) 06/28/17 16:14 Urine Appearance Slightly hazy (CLEAR) 06/28/17 16:14 Urine pH 8.0 (5.0 - 8.0) 06/28/17 16:14 Ur Specific [place] 1.010 (1.000-1.030) 06/28/17 16:14 Urine Protein 2+ (NEGATIVE) 06/28/17 16:14 Urine Glucose (UA) 4+ (NEGATIVE) 06/28/17 16:14 Urine Ketones 3+ (NEGATIVE) 06/28/17 16:14 Urine Occult Blood 1+ (NEGATIVE) 06/28/17 16:14 Urine Nitrite Negative (NEGATIVE) 06/28/17 16:14 Urine Bilirubin Negative (NEGATIVE) 06/28/17 16:14 Urine Urobilinogen Normal (NORMAL) 06/28/17 16:14 Ur Leukocyte Esterase 1+ (NEGATIVE) 06/28/17 16:14 Urine RBC 8-10 /HPF (NEGATIVE) 06/28/17 16:14 Urine WBC 2-3 /HPF (NEGATIVE) 06/28/17 16:14 Ur Squamous Epith Cells Few /HPF (NEGATIVE) 06/28/17 16:14 Amorphous Sediment Trace /HPF (NEGATIVE) 06/28/17 16:14 Urine Bacteria Trace /HPF (NEGATIVE) 06/28/17 16:14 Ur Culture Indicated? No/not indicated 06/28/17 16:14 - Plan (1) Pneumonia Status: Acute Qualifiers: Pneumonia type: due to unspecified organism Aspiration pneumonia type: A Laterality: right Lung location: lower lobe of lung Qualified Code(s): J18.1 - Lobar pneumonia, unspecified organism Plan: CLEOCIN 600MG IV Q8H, ZOSYN 3.375GM IV 8H, DUONEBS, SUPPLEMENTAL OXYGEN, CONTINUE TO MONITOR (2) Hyperglycemia Status: Acute Plan: LANTUS 20 UNITS SC AT HS, SLIDING SCALE INSULIN, CHECK OTBS, CONTINUE TO MONITOR (3) Cellulitis of abdominal wall Status: Acute Plan: CLEOCIN 600MG IV Q8H, ZOSYN 3.375GM IV Q8H, NYSTATIN POWDER, CONTINUE TO MONITOR (4) Yeast dermatitis Status: Acute Plan: NYSTATIN POWDER TO ABDOMEN AND GROIN, DIFLUCAN 200MG IV DAILY, CONTINUE TO MONITOR (5) Acute on chronic respiratory failure with hypercapnia Status: Acute Plan: CPAP AT HS, SOLU-MEDROL 40MG IV Q8H, CONTINUE DUONEB AND PULMICORT TX, CONTINUE TO MONITOR (6) COPD exacerbation Status: Acute Plan: CPAP AT HS, CONTINUE SOLU-MEDROL 40MG IV Q8H, CONTINUE DUONEB AND PULMICORT TX, CONTINUE TO MONITOR (7) Hypoalbuminemia Status: Acute Plan: ALBUMIN 25% IV DAILY, CONTINUE TO MONITOR
[2017-06-30] MEDS: SOLU-Medrol 40 MG VIAL IVP SCH ×3 (11:18→21:56)
[2017-06-30] MEDS: DIFLUCAN 200 MG IV PREMIX* 200 MG/100 ML BAG IV SCH (11:18)
[2017-06-30] MEDS ORDERED: LANTUS SC SCH (21:00)
[2017-06-30] MEDS: SNACK - Diabetic Appropriate PO SCH ×2 (21:56→21:58)
[2017-07-01] MEDS: DUONEB 0.5 MG/3 MG NEB SCH ×4 (00:03→17:02)
[2017-07-01] MEDS: NS 1000 ML 1,000 ML IV SCH ×5 (03:16→22:03)
[2017-07-01 05:42] LABS: ABG BASE EXCESS 6.3 mmol/L (-2.0-2.0)
[2017-07-01 05:44] LABS: ABG HCO3 34.7 mmol/L (22-26)
[2017-07-01 05:45] LABS: ABG ALLEN TEST POS
[2017-07-01] MEDS: ZOSYN VIAL 3.375 GM 3.375 GM in NS 100 ML IV + SPIKE MINIBAG* 100 ML IV SCH ×3 (06:09→22:02)
[2017-07-01] MEDS: HumuLIN R SC PRN ×4 (06:10→22:05)
[2017-07-01] MEDS: SOLU-Medrol 40 MG VIAL IVP SCH ×3 (06:10→22:01)
[2017-07-01 06:17] LABS: BASOPHILS % (AUTO) 0 % (0.2-1.0); EOSINOPHILS % (AUTO) 0.1 % (0.9-2.9); HEMATOCRIT 37.2 % (42.0-54.0); HEMOGLOBIN 11.9 g/dL (13.5-18.0); LYMPHOCYTES # (AUTO) 0.4 X10^3/uL (1.3-2.9); LYMPHOCYTES % (AUTO) 5.9 % (21.0-51.0); MEAN CORPUSCULAR HEMOGLOBIN 29.5 pg (27.0-34.0); MEAN CORPUSCULAR HGB CONC 31.9 g/dL (33.0-35.0); MEAN CORPUSCULAR VOLUME 92.3 fL (80.0-100.0); MEAN PLATELET VOLUME 7.1 fL (7.4-11.0); MONOCYTES # (AUTO) 0.1 x10^3/uL (0.3-0.8); MONOCYTES % (AUTO) 1.4 % (0.0-13.0); NEUTROPHILS # (AUTO) 5.6 x10^3/uL (2.2-4.8); NEUTROPHILS % (AUTO) 92.6 % (42.0-75.0); PLATELET COUNT 138 X10^3/uL (150.0-450.0); RED BLOOD COUNT 4.03 X10^6/uL (4.7-6.0); RED CELL DISTRIBUTION WIDTH 15.1 % (11.6-16.5)
--- NOTE | 2017-07-01 06:42 | RAD ---
HISTORY: Pneumonia Study: Single-view chest, done portably Comparison: June 30, 2017 Findings: The cardiac monitoring electrodes are noted on the chest. The trachea is midline. There is cardiomeg [place] with aortic uncoiling. Lungs and pleural spaces are clear. Osseous structures are intact. IMPRESSION: Cardiomegaly without acute cardiopulmonary disease. Reported By:
[2017-07-01 06:45] LABS: ALANINE AMINOTRANSFERASE 19 Units/L (12-78); ALBUMIN 2.6 g/dL (3.4-5.0); ALKALINE PHOSPHATASE 105 Units/L (46-116); ASPARTATE AMINO TRANSFERASE 11 Units/L (15-37); BAND NEUTROPHILS % 3 % (0-10); BLOOD UREA NITROGEN 13 mg/dL (7-18); CALCIUM 7.6 mg/dL (8.5-10.1); CARBON DIOXIDE 31.9 mmol/L (21-32); CHLORIDE 104 mmol/L (98-107); COR CA(FOR HYPOALB) 8.7 mg/dL (8.5-10.1); COR NA(FOR HYPERGLY) 146 mmol/L (136-145); CREATININE 1.18 mg/dL (0.70-1.30); GLUCOSE 312 mg/dL (65-99); PLATELET MORPHOLOGY COMMENT NORMAL (NORMAL); SODIUM 141 mmol/L (136-145); TOTAL PROTEIN 6.6 g/dL (6.4-8.2); eGFR BLACK RACES > 60 (>60); eGFR NON BLACK RACES > 60 (>60)
[2017-07-01] MEDS: PULMICORT NEB TX 0.5 MG NEB SCH ×2 (08:51→20:52)
[2017-07-01] MEDS: FOLIC ACID TAB 1 MG PO SCH (09:21)
[2017-07-01] MEDS: ASPIRIN EC 81 MG PO SCH (09:21)
[2017-07-01] MEDS: COZAAR PO SCH (09:21)
[2017-07-01] MEDS: PROCARDIA XL PO SCH (09:22)
[2017-07-01] MEDS: NYSTATIN POWDER TOP SCH ×2 (09:22→22:06)
[2017-07-01] MEDS: ZyrTEC TAB 10 MG PO SCH (09:22)
[2017-07-01] MEDS: ELIQUIS PO SCH ×2 (09:22→22:01)
[2017-07-01] MEDS: DIFLUCAN 200 MG IV PREMIX* 200 MG/100 ML BAG IV SCH (09:22)
[2017-07-01] MEDS: LEVAQUIN PREMIX IV 750 MG 750 MG/150 ML BAG IV SCH (09:23)
[2017-07-01] MEDS: ALBUMIN HUMAN 25%- 100ML 100 ML IV SCH (09:23)
[2017-07-01] MEDS ORDERED: LANTUS SC SCH (09:57)
--- NOTE | 2017-07-01 21:46 | PCM.PROG ---
Progress Note - Progress Note for Day of Date: 07/01/17 - Subjective Subjective: IS ALERT AND ORIENTED, SITTING UP IN BED ON MORNING ROUNDS. HE CONTINUES WITH COMPLAINTS OF SHORTNESS OF BREATH, BUT REPORTS FEELING BETTER THAN PREVIOUS DAY. REDNESS AND YEAST TO ABDOMINAL FOLDS AND GROIN STILL PRESENT, BUT IMPROVING. LUNGS CONTINUE WITH SCATTERED WHEEZING. VITALS THIS AM ARE 98.1-78-20-92%-148/65. CBC WNL EXCEPT RBC 4.03, HGB 11.9, HCT 37.2. CMP WNL EXCEPT POTASSIUM 4.6, GLUCOSE 312 CALCIUM 7.6, ALBUMIN 2.6. CHEST XRAY REPORTS CARDIOMEGALY WITHOUT CHF. LUNGS CLEAR. WE WILL INCREASE LANTUS TO 30UNITS AT HS AND CONTINUE WITH CURRENT PLAN OF CARE. WE PLAN TO RECHECK LABS AND FOLLOW UP WITH PATIENT IN AM. - Past Medical Family Social History Past Med/Fam/Surg Hx: No changes since H&P Allergies: Allergies No Known Drug Allergies Allergy (Verified 06/28/17 14:35) - Review of Systems ROS: No change since H&P - Vital Signs and I&O's Vital Signs: Temperature 98.0 F Pulse Rate [Right Radial] 81 Pulse Rate 83 Respiratory Rate 22 Blood Pressure [Left Arm] 135/71 Blood Pressure 135/70 O2 Sat by Pulse Oximetry 95 Intake and Output: Intake & Output 06/29/17 06/30/17 07/01/17 07/02/17 11:59 11:59 11:59 11:59 Intake Total 1450 1940 2485 2160 Output Total 550 1175 1550 700 Balance 900 401 808 2586 - Physical Exam Oriented: Normal. negative: Time, Person, Place, Not Oriented, Unable to test, Other Eyes: Normal. negative: Blurred Vision, Diplopia, Discharge, Pain, Redness, Photophobia, Other Ear: Normal. negative: Right, Left, Swelling, Ecchymosis, Hemotypanum, Abrasion , Laceration Nose: Normal. negative: Injected, Discharge, Blood, Other Throat: Normal. negative: Tonsillar Hypertrophy, Red, Exudate, Dry, Other Respiratory: Right, Left, Wheezes Cardiovascular: Tachycardia. negative: Normal : Normal. negative: Dysuria, Hematuria, Frequency, Discharge, Testicular Pain , Bleeding, , Other Auscultation: Bowel Sounds: Normal. negative: Bruit, Absent, Increased, Decreased, High Pitched, Other Palpation: Normal Tenderness: Normal. negative: Diffuse, RUQ, RLQ, LUQ, LLQ, Epigastric, Periumbilical, Suprapubic, Mild, Moderate, Severe, Rebound, Guarding, Rigidity, Other Skin: Rash (ABDOMINAL FOLDS AND GROIN), Red, Wound Musculoskeletal: Normal. negative: Right, Left, Shoulder, Clavicle, Arm, Elbow , Forearm, Wrist, Hand, Hip, Thigh, Knee, Leg, Ankle, Foot, Back:Thoracic, Back: Lumbar, Back:Midline, Back:Paraspinous, Pelvis, Swelling, Tender, Deformity, Pulse Deficit, Motor Deficit, Sensory Deficit, Instability, Crepitance Psychiatric: Normal. negative: Anxiety, Depression, Agitation, Other Mood Description: Calm. negative: Angry, Apathetic, Depressed, Fearful, Flat, Happy, Hostile, Sad, Suspicious, Withdrawn, Anxious, Appropriate, Labile Affect: Normal Speech Pattern: Clear, Appropriate - Laboratory and Diagnostics Result Diagrams: 07/01/17 05:21 07/01/17 05:21 Labs: Laboratory WBC 6.0 X10^3/uL (3.6-10.0) 07/01/17 05:21 RBC 4.03 X10^6/uL (4.7-6.0) L 07/01/17 05:21 Hgb 11.9 g/dL (13.5-18.0) L 07/01/17 05:21 Hct 37.2 % (42.0-54.0) L 07/01/17 05:21 MCV 92.3 fL (80.0-100.0) 07/01/17 05:21 MCH 29.5 pg (27.0-34.0) 07/01/17 05:21 MCHC 31.9 g/dL (33.0-35.0) L 07/01/17 05:21 RDW 15.1 % (11.6-16.5) 07/01/17 05:21 Plt Count 138 X10^3/uL (150.0-450.0) L 07/01/17 05:21 Plt Count Comment Adequate (ADEQUATE) 07/01/17 05:21 MPV 7.1 fL (7.4-11.0) L 07/01/17 05:21 Neut % 92.6 % (42.0-75.0) H 07/01/17 05:21 Lymph % 5.9 % (21.0-51.0) L 07/01/17 05:21 [place] % 1.4 % (0.0-13.0) 07/01/17 05:21 Eos % 0.1 % (0.9-2.9) L 07/01/17 05:21 Baso % 0 % (0.2-1.0) L 07/01/17 05:21 Neut # 5.6 x10^3/uL (2.2-4.8) H 07/01/17 05:21 Lymph # 0.4 X10^3/uL (1.3-2.9) L 07/01/17 05:21 [place] # 0.1 x10^3/uL (0.3-0.8) L 07/01/17 05:21 Eos # 0.0 x10^3/uL (0.0-0.2) 07/01/17 05:21 Baso # 0.0 X10^3/uL (0.0-0.1) 07/01/17 05:21 Absolute Nucleated RBC 0.0 /100WBC 07/01/17 05:21 Total Counted 100 07/01/17 05:21 Neutrophils % (Manual) 89 % (39-76) H 07/01/17 05:21 Band Neutrophils % 3 % (0-10) 07/01/17 05:21 Lymphocytes % (Manual) 6 % (13-43) L 07/01/17 05:21 Monocytes % (Manual) 2 % (4-9) L 07/01/17 05:21 Plt Morphology Comment Normal (NORMAL) 07/01/17 05:21 RBC Morphology Normal (NORMAL) 07/01/17 05:21 Hypochromasia Slight A 06/28/17 14:40 Stomatocytes Present 06/28/17 14:40 Sample Site Rrad 07/01/17 05:31 ABG pH 7.310 (7.35-7.45) L 07/01/17 05:31 ABG pCO2 69.0 mmHg (35.0-45.0) H* 07/01/17 05:31 ABG pO2 48.0 mmHg (80.0-100.0) L* 07/01/17 05:31 ABG HCO3 34.7 mmol/L (22-26) H* 07/01/17 05:31 ABG O2 Saturation 79.0 % (90-100) L* 07/01/17 05:31 ABG Base Excess 6.3 mmol/L (-2.0-2.0) H 07/01/17 05:31 [place] Test Pos 07/01/17 05:31 A-a Gradient 94.0 mmHg 07/01/17 05:31 FiO2 32.000 07/01/17 05:31 Blood Gas Comments [place] abg well-mtf 07/01/17 05:31 Sodium 141 mmol/L (136-145) 07/01/17 05:21 Corrected Sodium 146 mmol/L (136-145) H 07/01/17 05:21 Potassium 4.6 mmol/L (3.5-5.1) 07/01/17 05:21 Chloride 104 mmol/L (98-107) 07/01/17 05:21 Carbon Dioxide 31.9 mmol/L (21-32) 07/01/17 05:21 BUN 13 mg/dL (7-18) 07/01/17 05:21 Creatinine 1.18 mg/dL (0.70-1.30) 07/01/17 05:21 Est GFR (MDRD) Af Amer > 60 (>60) 07/01/17 05:21 Est GFR (MDRD) Non-Af > 60 (>60) 07/01/17 05:21 Glucose 312 mg/dL (65-99) H 07/01/17 05:21 Hemoglobin A1c 12.2 % (4.5-6.2) H 06/29/17 04:55 Calcium 7.6 mg/dL (8.5-10.1) L 07/01/17 05:21 Corrected Calcium 8.7 mg/dL (8.5-10.1) 07/01/17 05:21 Total Bilirubin 0.30 mg/dL (0.2-1.0) 07/01/17 05:21 AST 11 Units/L (15-37) L 07/01/17 05:21 ALT 19 Units/L (12-78) 07/01/17 05:21 Alkaline Phosphatase 105 Units/L (46-116) 07/01/17 05:21 Creatine Kinase 22 Units/L (39-308) L 06/29/17 04:55 CK-MB (CK-2) < 1.0 ng/mL (0-4.0) 06/29/17 04:55 CK/CKMB % Calc 4.6 % (<4) 06/29/17 04:55 Troponin I < 0.02 ng/mL (0-1.5) 06/29/17 04:55 B-Natriuretic Peptide 52.3 pg/mL (0-79) 06/28/17 14:40 Total Protein 6.6 g/dL (6.4-8.2) 07/01/17 05:21 Albumin 2.6 g/dL (3.4-5.0) L 07/01/17 05:21 Globulin 4.0 g/dL (2.5-4.5) 07/01/17 05:21 Albumin/Globulin Ratio 0.7 Ratio (1.1-2.1) L 07/01/17 05:21 Specimen Type Clean catch urine 06/28/17 16:14 Urine Color Yellow (YELLOW) 06/28/17 16:14 Urine Appearance Slightly hazy (CLEAR) 06/28/17 16:14 Urine pH 8.0 (5.0 - 8.0) 06/28/17 16:14 Ur Specific [place] 1.010 (1.000-1.030) 06/28/17 16:14 Urine Protein 2+ (NEGATIVE) 06/28/17 16:14 Urine Glucose (UA) 4+ (NEGATIVE) 06/28/17 16:14 Urine Ketones 3+ (NEGATIVE) 06/28/17 16:14 Urine Occult Blood 1+ (NEGATIVE) 06/28/17 16:14 Urine Nitrite Negative (NEGATIVE) 06/28/17 16:14 Urine Bilirubin Negative (NEGATIVE) 06/28/17 16:14 Urine Urobilinogen Normal (NORMAL) 06/28/17 16:14 Ur Leukocyte Esterase 1+ (NEGATIVE) 06/28/17 16:14 Urine RBC 8-10 /HPF (NEGATIVE) 06/28/17 16:14 Urine WBC 2-3 /HPF (NEGATIVE) 06/28/17 16:14 Ur Squamous Epith Cells Few /HPF (NEGATIVE) 06/28/17 16:14 Amorphous Sediment Trace /HPF (NEGATIVE) 06/28/17 16:14 Urine Bacteria Trace /HPF (NEGATIVE) 06/28/17 16:14 Ur Culture Indicated? No/not indicated 06/28/17 16:14 - Plan (1) Pneumonia Status: Acute Qualifiers: Pneumonia type: due to unspecified organism Aspiration pneumonia type: A Laterality: right Lung location: lower lobe of lung Qualified Code(s): J18.1 - Lobar pneumonia, unspecified organism Plan: CLEOCIN 600MG IV Q8H, ZOSYN 3.375GM IV 8H, DUONEBS, SUPPLEMENTAL OXYGEN, CONTINUE TO MONITOR (2) Hyperglycemia Status: Acute Plan: LANTUS 30 UNITS SC AT HS, SLIDING SCALE INSULIN, CHECK OTBS, CONTINUE TO MONITOR (3) Cellulitis of abdominal wall Status: Acute Plan: CLEOCIN 600MG IV Q8H, ZOSYN 3.375GM IV Q8H, NYSTATIN POWDER, CONTINUE TO MONITOR (4) Yeast dermatitis Status: Acute Plan: NYSTATIN POWDER TO ABDOMEN AND GROIN, DIFLUCAN 200MG IV DAILY, CONTINUE TO MONITOR (5) Acute on chronic respiratory failure with hypercapnia Status: Acute Plan: CPAP AT HS, SOLU-MEDROL 40MG IV Q8H, CONTINUE DUONEB AND PULMICORT TX, CONTINUE TO MONITOR (6) COPD exacerbation Status: Acute Plan: CPAP AT HS, CONTINUE SOLU-MEDROL 40MG IV Q8H, CONTINUE DUONEB AND PULMICORT TX, CONTINUE TO MONITOR (7) Hypoalbuminemia Status: Acute Plan: ALBUMIN 25% IV DAILY, CONTINUE TO MONITOR
[2017-07-01] MEDS: SNACK - Diabetic Appropriate PO SCH ×2 (22:06→22:07)
[2017-07-01] MEDS ORDERED: NS 250 ML IV 250 ML IV ONE (22:13)
[2017-07-02] MEDS: DUONEB 0.5 MG/3 MG NEB SCH ×3 (00:46→12:12)
[2017-07-02] MEDS: TORADOL 30 MG VIAL IVP PRN (03:42)
[2017-07-02] MEDS: NS 1000 ML 1,000 ML IV SCH ×2 (04:45→10:01)
[2017-07-02 05:02] LABS: ABG BASE EXCESS 5.8 mmol/L (-2.0-2.0)
[2017-07-02 05:03] LABS: ABG HCO3 34.4 mmol/L (22-26)
[2017-07-02 05:04] LABS: ABG ALLEN TEST POS
[2017-07-02 05:41] LABS: BASOPHILS % (AUTO) 0.1 % (0.2-1.0); HEMATOCRIT 38.1 % (42.0-54.0); HEMOGLOBIN 11.9 g/dL (13.5-18.0); LYMPHOCYTES # (AUTO) 0.3 X10^3/uL (1.3-2.9); LYMPHOCYTES % (AUTO) 3.6 % (21.0-51.0); MEAN CORPUSCULAR HEMOGLOBIN 29.2 pg (27.0-34.0); MEAN CORPUSCULAR HGB CONC 31.3 g/dL (33.0-35.0); MEAN CORPUSCULAR VOLUME 93.4 fL (80.0-100.0); MEAN PLATELET VOLUME 7.2 fL (7.4-11.0); MONOCYTES # (AUTO) 0.2 x10^3/uL (0.3-0.8); MONOCYTES % (AUTO) 2.2 % (0.0-13.0); NEUTROPHILS # (AUTO) 7.4 x10^3/uL (2.2-4.8); NEUTROPHILS % (AUTO) 94.1 % (42.0-75.0); PLATELET COUNT 150 X10^3/uL (150.0-450.0); RED BLOOD COUNT 4.08 X10^6/uL (4.7-6.0); RED CELL DISTRIBUTION WIDTH 15.2 % (11.6-16.5); WHITE BLOOD COUNT 7.9 X10^3/uL (3.6-10.0)
[2017-07-02 05:43] LABS: ALANINE AMINOTRANSFERASE 20 Units/L (12-78); ALBUMIN 2.9 g/dL (3.4-5.0); ALKALINE PHOSPHATASE 93 Units/L (46-116); ASPARTATE AMINO TRANSFERASE 11 Units/L (15-37); BLOOD UREA NITROGEN 20 mg/dL (7-18); CALCIUM 7.8 mg/dL (8.5-10.1); CARBON DIOXIDE 32.8 mmol/L (21-32); CHLORIDE 106 mmol/L (98-107); COR CA(FOR HYPOALB) 8.7 mg/dL (8.5-10.1); COR NA(FOR HYPERGLY) 147 mmol/L (136-145); CREATININE 1.31 mg/dL (0.70-1.30); GLUCOSE 342 mg/dL (65-99); SODIUM 141 mmol/L (136-145); TOTAL PROTEIN 6.5 g/dL (6.4-8.2); eGFR BLACK RACES > 60 (>60); eGFR NON BLACK RACES 60 (>60)
[2017-07-02] MEDS: SOLU-Medrol 40 MG VIAL IVP SCH (06:16)
[2017-07-02] MEDS: ZOSYN VIAL 3.375 GM 3.375 GM in NS 100 ML IV + SPIKE MINIBAG* 100 ML IV SCH (06:16)
[2017-07-02] MEDS: HumuLIN R SC PRN ×2 (06:21→12:22)
[2017-07-02 06:50] LABS: PLATELET MORPHOLOGY COMMENT NORMAL (NORMAL)
--- NOTE | 2017-07-02 08:11 | RAD ---
Chest, one-view Indication: Shortness of breath Comparison: July 01, 2017 Findings: There is stable mild enlargement of the cardiac silhouette without congestive failure. No focal consolidation, significant effusion or pneumothorax is identified. The osseous thorax is unrem arkable. Impression: Cardiomegaly without congestive failure or acute cardiopulmonary abnormality. Reported By:
[2017-07-02] MEDS: PULMICORT NEB TX 0.5 MG NEB SCH (09:49)
[2017-07-02] MEDS: LEVAQUIN PREMIX IV 750 MG 750 MG/150 ML BAG IV SCH (09:53)
[2017-07-02] MEDS: DIFLUCAN 200 MG IV PREMIX* 200 MG/100 ML BAG IV SCH (09:53)
[2017-07-02] MEDS: ALBUMIN HUMAN 25%- 100ML 100 ML IV SCH (09:53)
[2017-07-02] MEDS: NYSTATIN POWDER TOP SCH (09:54)
[2017-07-02] MEDS: ZyrTEC TAB 10 MG PO SCH (09:54)
[2017-07-02] MEDS: COZAAR PO SCH (09:54)
[2017-07-02] MEDS: FOLIC ACID TAB 1 MG PO SCH (09:54)
[2017-07-02] MEDS: ELIQUIS PO SCH (09:54)
[2017-07-02] MEDS: ASPIRIN EC 81 MG PO SCH (09:54)
[2017-07-02] MEDS: PROCARDIA XL PO SCH (09:54)
[2017-07-02 13:04] VITALS: BP 129/71
--- NOTE | 2017-07-04 22:35 | DR.CARTERD ---
- Discharge Summary for: Discharge Summary for Date of:: 07/02/17 - Admission Date Date of Admission: 06/28/17 - Admission Diagnoses Admission Diagnosis: (1) Pneumonia (2) Hyperglycemia (3) Cellulitis of abdominal wall - Discharge Date Discharge Date: 07/02/17 - Discharge Diagnoses Discharge Diagnosis: (1) Pneumonia (2) Hyperglycemia (3) Cellulitis of abdominal wall (4) Yeast dermatitis (5) Acute on chronic respiratory failure with hypercapnia (6) COPD exacerbation (7) Hypoalbuminemia - Hospital Course Hospital Course: DAY ONE OF HOSPITAL STAY, IS A 57 YEAR OLD PATIENT OF OURS WHO PRESENTED TO THE EMERGENCY ROOM WITH COMPLAINTS OF SHORTNESS OF BREATH, WEAKNESS , AND FEVER THAT STARTED THIS DAY. HE ALSO COMPLAINED OF REDNESS TO RIGHT SIDE ABDOMEN. ON EXAMINATION, LUNGS WERE NOTED WITH SCATTERED WHEEZING. RIGHT SIDE ABDOMINAL FOLDS AND GROIN NOTED WITH REDNESS AND DRAINAGE. ON ARRIVAL TO ER, VITALS WERE 100.0, 119, 22, 94%, 135/70. CBC REPORTED WBC 16.9, RBC 4.50, HGB 13.2, HCT 41.7. CMP WNL EXCEPT CARBON DIOXIDE 37.6, GLUCOSE 349, CALCIUM 7.9, AST 14, ALKALINE PHOSPHATASE 146, CREATINIE KINASE 24, ALBUMIN 3.0. ABG REPORTED PH 7.330, PC02 78, P02 107, HC03 41.1, 02 98. CARDIAC ENZYMES WNL. EKG REPORTED SINUS TACHYCARDIA WITH RATE OF 118. CHEST CT WAS OBTAINED AND REPORTED SUBSEGMENTAL ATELECTASIS VS SCARRING OR EARLY INFILTRATES ALONG THE RIGHT LOWER LOBE WHICH IS LESS PROMINENT, 3MM SUBPLEURAL NODULE ALONG THE RIGHT UPPER LOBE POSTERIORLY, AND MILDLY ENLARGED MEDIASTINAL LYMPH NODES WHICH ARE LESS PROMINENT OR UNCHANGED. HE WAS GIVEN TYLENOL 1 GM, ZOSYN 3.375GM, CLEOCIN 600MG , AND NEB TX IN ER. TEMPERATURE DECREASED TO 99.4. WE ADMITTED PATIENT FOR FURTHER TREATMENT AND EVALUATION. WE STARTED HIM ON CLEOCIN 600MG Q8H, ZOSYN 3.375 Q8H, NS @150ML/HR, NYSTATIN FOR WOUNDS, AND SLIDING SCALE INSULIN. WE PLANNED TO RECHECK LABS AND FOLLOW UP WITH PATIENT. DAY TWO OF HOSPITAL STAY, WAS ALERT AND ORIENTED, SITTING UP IN BED ON MORNING ROUNDS. HE WAS NOTED WITH COMPLAINTS OF SHORTNESS OF BREATH, BILATERAL HIP PAIN, AND WEAKNESS. ABDOMINAL FOLDS AND GROIN REMAINED RED AND NOTED WITH DRAINING. PITTING EDEMA NOTED TO BILATERAL LOWER EXTREMITIES. LUNGS WERE NOTED WITH SCATTERED WHEEZING. VITALS WERE 99.3-102-22-93%-126/67. CBC REPORTS WBC 12, RBC 4.29, HGB 12.4, HCT 39.2. CMP WNL EXCEPT CARBON DIOXIDE 36.6 , GLUCOSE 280, A1C 12.2, CALCIUM 7.6, AST 14, ALKALINE PHOSPHATASE 122, CREATINE KINASE 22, TOTAL PROTEIN 6.1, ALBUMIN 2.5. CARDIAC ENZYMES AND EKGS WNL. WE DISCONTINUED CLEOCIN AND STARTED LEVAQUIN IV DAILY. WE STARTED TORADOL 30MG IV Q6H PRN FOR HIS HIP PAIN. WE PLANNED TO RECHECK LABS AND FOLLOW UP WITH PATIENT. DAY THREE OF HOSPITAL STAY, WAS ALERT AND ORIENTED, SITTING UP IN BED ON MORNING ROUNDS. HE CONTINUED WITH COMPLAINTS OF SHORTNESS OF BREATH, WEAKNESS , AND ABDOMINAL REDNESS AND DISCOMFORT. REDNESS AND YEAST NOTED TO ABDOMINAL FOLDS AND GROIN. HE CONTINUED WITH EDEMA TO BILATERAL LOWER EXTREMITIES. LUNGS CONTINUED WITH SCATTERED WHEEZING. VITALS WERE 98.7-98-18-93%-119/61. CBC WNL EXCEPT RBC 4.21, HGB 12.5, HCT 38.6. CMP WNL EXCEPT CARBON DIOXIDE 33.0, CREATININE 1.33, GLUCOSE 238, CALCIUM 7.4, TOTAL PROTEIN 6.1, ALBUMIN 2.4. CHEST XRAY REPORTS CARDIOMEGALY WITHOUT CHF; LUNGS CLEAR. WE STARTED ALBUMIN 25 % DAILY, STARTED LANTUS 20UNITS AT HS, SOLUMEDROL 40MG IV Q8H, AND DIFLUCAN 200MG IV DAILY. DAY FOUR OF HOSPITAL STAY, WAS ALERT AND ORIENTED, SITTING UP IN BED ON MORNING ROUNDS. HE CONTINUED WITH COMPLAINTS OF SHORTNESS OF BREATH, BUT REPORTED FEELING BETTER THAN PREVIOUS DAY. REDNESS AND YEAST TO ABDOMINAL FOLDS AND GROIN WAS STILL PRESENT, BUT IMPROVING. LUNGS CONTINUED WITH SCATTERED WHEEZING. VITALS WERE 98.1-78-20-92%-148/65. CBC WNL EXCEPT RBC 4.03, HGB 11.9, HCT 37.2. CMP WNL EXCEPT POTASSIUM 4.6, GLUCOSE 312 CALCIUM 7.6, ALBUMIN 2.6. CHEST XRAY REPORTED CARDIOMEGALY WITHOUT CHF; LUNGS CLEAR. WE INCREASED LANTUS TO 30UNITS AT HS AND CONTINUED WITH PLAN OF CARE. DAY FIVE OF HOSPITAL STAY, PATIENT'S RESPIRATORY STATUS WAS IMPROVED. PATIENT REPORTED HE WAS FEELING BETTER AND WAS NOTED WITH NO RESPIRATORY DISTRESS OR SHORTNESS OF BREATH. ABDOMINAL FOLDS SHOWED MUCH IMPROVEMENT AND WERE WITHOUT DRAINAGE. ON AUSCULTATION, LUNGS CLEAR. WE PLANNED FOR DISCHARGE. INSTRUCTIONS FOR MEDICATIONS AND FOLLOW UP WERE GIVEN TO PATIENT AND FAMILY, BOTH VOICED UNDERSTANDING. PATIENT WAS DISCHARGED HOME IN STABLE CONDITION WITH FAMILY. - Discharge Medications Discharge Medications: Aspirin [Adult Low Dose Aspirin EC] 1 tab PO DAILY 06/28/17 [History] Apixaban [Eliquis] 5 mg PO BID #60 tab 07/02/17 [Rx] Insulin Glargine (Lantus) [LANTUS INSULIN 10 ML VIAL *] 1 units SC HS #30 ml [Rx] Levofloxacin [LEVAQUIN TAB 500 MG *] 500 mg PO Q24H #10 tab 07/02/17 [Rx] Methylprednisolone Dosepak 4Mg [MEDROL DOSEPAK (4 mg tab x 21)] 1 stephanie PO ONCE # 1 stephanie 07/02/17 [Rx] Nystatin (Topical) [NYSTATIN POWDER *] 1 applic EX BID #15 gm 07/02/17 [Rx] Tramadol HCl [ULTRAM 50 MG *] 50 mg PO QID PRN #120 tab 07/02/17 [Rx] - Discharge Disposition Discharge Disposition: PATIENT IS TO FOLLOW UP IN OUR OFFICE ON 07/12/17. HE HAS BEEN SETUP WITH [facility], [place].
== END 2017-07-02 13:50 | disposition home or self-care (01) | DRG 193 ==
LOC: ER 14:24 → MED/SURG 19:08
PROVIDERS: ADMIT Internal Medicine; ATTEND Internal Medicine
DX: J18.8 Other pneumonia, unspecified organism (principal); E11.65 Type 2 diabetes mellitus with hyperglycemia; L03.311 Cellulitis of abdominal wall; R06.02 Shortness of breath; R07.89 Other chest pain; B37.2 Candidiasis of skin and nail; Z99.81 Dependence on supplemental oxygen; J44.1 Chronic obstructive pulmonary disease with (acute) exacerbation; M13.89 Other specified arthritis, multiple sites; J45.998 Other asthma; I10 Essential (primary) hypertension; R94.31 Abnormal electrocardiogram [ECG] [EKG]; J98.11 Atelectasis; E78.2 Mixed hyperlipidemia; K21.9 Gastro-esophageal reflux disease without esophagitis; J96.22 Acute and chronic respiratory failure with hypercapnia; R60.0 Localized edema; I51.7 Cardiomegaly
CPT/HCPCS: 36415; 36600; 71010; 71250; 80053; 81001; 82550; 82553; 82803; 83036; 83880; 84484; 85025; 87040; 93005; 94640; 94760; 96365; 96367; 96374; 99284; A4222; P9047; J0077; J1450; J1815; J1885; J1956; J2543; J2920; J7620; J7626

== ENCOUNTER 2017-10-06 10:14 | Inpatient (IN) | payer BC, OTHER ==
--- NOTE | 2017-10-06 10:27 | DR.GENAD ---
HPI - PCP Primary Care Physician: TRENA - HPI Comment HPI Comment: GI BLEEDING TIMES ONE WEEK. WORSE TODAY. PATIENT WAS PASSING MORE BLOOD TODAY. SOME ABDOMINAL PAIN PRESENT. HOME HEALTH NURSE CALL EMS TO BRING PATIENT TO ED. - Complaint/Symptoms Chief Complaint Doctors Comments: RECTAL BLEED. Chief Complaint:: PT C/O RECTAL BLEEDING X 1 WEEK NOTED BRIGHT RED BLOOD TO BE ON PT'S UNDERWEAR. PT STATES X1 WEEK AGO HE STRAINED TO HAVE A BM AND STARTED HAVING THE BRIGHT RED BLOOD AND HAS BEEN HAVING IT ON AND OFF SINCE. - Nurses notes reviewed Nurses Notes Review: Yes - Source History Provided: Patient - Mode of Arrival Mode of Arrival: Ambulatory - Timing Onset of Chief Complaint: 09/29/17 Came on: Suddenly - Duration Duration: Constant Duration: Days - Severity Severity: Moderate PMH - PMH Past Medical History: Yes Past Medical History: Arthritis, Asthma, CHF, COPD, Diabetes, Gout, Headaches, Hypertension, Kidney Stones Past Surgical History: Yes Surgical History: Appendectomy, Ortho Surgery - Family History History of Family Medical Conditions: Yes Family Medical History: Diabetes Mellitus, PA, Sudden Cardiac , Hypertension - Social History Does patient currently use any type of tobacco product: No Have you used tobacco products in the last 12 months: No Type of Tobacco Use: None Does any household member use tobacco: No Alcohol Use: None Do you use any recreational Drugs:: No Lives With: Family Lives Where: Home - infectious screening In the last 2 months have you had wt loss of >10#?: NO Have you had fever, night sweats or hemotysis?: No Have you traveled outside the country in the last 6 months?: No Isolation: Standard ROS - Review of Systems Constitutional: Weakness, Fatigue. negative: Chills, Fever Eyes: No Symptoms Reported ENTM: No Symptoms Reported Respiratoy: Non-Productive Cough, Short of Breath, Wheezing. negative: Hemoptysis Cardiovascular: No Symptoms Reported Gastrointestinal/Abdominal: Abdominal Pain. negative: Constipation, Diarrhea, Vomiting Genitourinary: Bleeding. negative: Dysuria, Hematuria Neurological: Weakness. negative: Headache, Dizziness Musculoskeletal: Back Pain, Joint Pain, Joint Swelling, Muscle Pain Integumentary: No Symptoms Reported Hematologic/Lymphatic: No Symptoms Reported Endocrine: No Symptoms Reported. negative: Flushing, Increased Thirst, Increased Urine All Other Systems: Reviewed and Negative PE - Vital Signs Vitals: Temperature 98.4 F Pulse Rate 115 Respiratory Rate 24 Blood Pressure [Right Arm] 121/60 Blood Pressure [Left Arm] 129/71 Blood Pressure 105/60 O2 Sat by Pulse Oximetry 95 - General Limitations: No Limitations General Appearance: Alert - Head Head Exam: Normal Inspection - Eyes Eye exam: Normal Appearance - ENT ENT Exam: Normal External Ear Exam External Ear Exam: Normal External Inspection TM/Canal Exam: Bilateral Normal Nose Exam: Normal Nose Exam Mouth Exam: Normal Inspection Throat Exam: Normal Inspection - Neck Neck Exam: Trachea Midline - Chest Chest Inspection: Symmetric Chest Wall Rise - Respiratory Respiratory Exam: Respiratory Distress Respiratory Exam: Bilateral Wheezing, Bilateral Rhonchi, Upper Wheezing, Upper Rhonchi, Lower Wheezing, Lower Rhonchi - Cardiovascular Cardiovascular Exam: Regular Rate, Normal Rhythm, Normal Heart Sounds - Abdominal Exam Abdominal Exam: Normal Bowel Sounds, Soft, Tenderness Abdominal Tenderness: Diffuse, Mild - Extremities Extremities Exam: Tenderness (KNEES), Joint Swelling - Back Back Exam: Paraspinal Tenderness - Neurologic Neurological Exam: Alert, Oriented X3 - Psychiatric Psychiatric Exam: Anxious - Skin Skin Exam: Rash (GENITAL /RECTAL AREAS), Erythema, Other (DECUBITUS ULCERS BUTTOCKS, RASH PERIRECTAL ARESSSSSA) MDM - Additional Information Additional Information Obtained From: Family - Differential Diagnosis Differential Diagnosis: GI BLEEDING, RASH, DECUBITUS ULCER. Course - Treatment Treatment: SEE ORDERS. - Consultation Consultation Comments: DR LOPEZ NURSE SAID DR. ALBRECHT WILL ADMIT PATIENT. - Education/Counseling Education/Counseling: Patient, Family, Education Educated On: Diagnosis, Needs for Follow Up ROR - Labs Reviewed Laboratory Results Reviewed?: Yes Result Diagrams: 10/07/17 05:15 10/07/17 05:15 Laboratory: WBC 11.1 X10^3/uL (3.6-10.0) H 10/06/17 10:36 RBC 3.93 X10^6/uL (4.7-6.0) L 10/06/17 10:36 Hgb 11.4 g/dL (13.5-18.0) L 10/06/17 10:36 Hct 34.9 % (42.0-54.0) L 10/06/17 10:36 MCV 88.7 fL (80.0-100.0) 10/06/17 10:36 MCH 28.9 pg (27.0-34.0) 10/06/17 10:36 MCHC 32.6 g/dL (33.0-35.0) L 10/06/17 10:36 RDW 14.9 % (11.6-16.5) 10/06/17 10:36 Plt Count 228 X10^3/uL (150.0-450.0) 10/06/17 10:36 MPV 6.1 fL (7.4-11.0) L 10/06/17 10:36 Neut % 87.3 % (42.0-75.0) H 10/06/17 10:36 Lymph % 6.8 % (21.0-51.0) L 10/06/17 10:36 [place] % 5.3 % (0.0-13.0) 10/06/17 10:36 Eos % 0.3 % (0.9-2.9) L 10/06/17 10:36 Baso % 0.3 % (0.2-1.0) 10/06/17 10:36 Neut # 9.7 x10^3/uL (2.2-4.8) H 10/06/17 10:36 Lymph # 0.8 X10^3/uL (1.3-2.9) L 10/06/17 10:36 [place] # 0.6 x10^3/uL (0.3-0.8) 10/06/17 10:36 Eos # 0.0 x10^3/uL (0.0-0.2) 10/06/17 10:36 Baso # 0.0 X10^3/uL (0.0-0.1) 10/06/17 10:36 Absolute Nucleated RBC 0.0 /100WBC 10/06/17 10:36 INR Target Range - 10/06/17 10:36 INR 1.24 (0.8-1.3) 10/06/17 10:36 PTT 26.6 SECONDS (22.9-36.5) 10/06/17 10:36 PTT Comment - 10/06/17 10:36 Sodium 130 mmol/L (136-145) L 10/06/17 10:36 Corrected Sodium 133 mmol/L (136-145) L 10/06/17 10:36 Potassium 5.2 mmol/L (3.5-5.1) H 10/06/17 10:36 Chloride 93 mmol/L (98-107) L 10/06/17 10:36 Carbon Dioxide 30.1 mmol/L (21-32) 10/06/17 10:36 BUN 13 mg/dL (7-18) 10/06/17 10:36 Creatinine 1.37 mg/dL (0.70-1.30) H 10/06/17 10:36 Est GFR (MDRD) Af Amer > 60 (>60) 10/06/17 10:36 Est GFR (MDRD) Non-Af 57 (>60) L 10/06/17 10:36 Glucose 232 mg/dL (65-99) H 10/06/17 10:36 Calcium 8.7 mg/dL (8.5-10.1) 10/06/17 10:36 Corrected Calcium 9.8 mg/dL (8.5-10.1) 10/06/17 10:36 Total Bilirubin 0.40 mg/dL (0.2-1.0) 10/06/17 10:36 AST 19 Units/L (15-37) 10/06/17 10:36 ALT 27 Units/L (12-78) 10/06/17 10:36 Alkaline Phosphatase 173 Units/L (46-116) H 10/06/17 10:36 Total Protein 7.3 g/dL (6.4-8.2) 10/06/17 10:36 Albumin 2.6 g/dL (3.4-5.0) L 10/06/17 10:36 Globulin 4.7 g/dL (2.5-4.5) H 10/06/17 10:36 Albumin/Globulin Ratio 0.6 Ratio (1.1-2.1) L 10/06/17 10:36 Stool Description Fob tube 10/06/17 13:03 Stl Occult Blood (IFOB) Positive (NEGATIVE) A 10/06/17 13:03 - XRAY XRAY Interpreted by: Radiologist XRAY Findings: REPORT DISCUSS WITH PATIENT AND FAMILY. - EKG Rhythm: NSR (EKG NOTED) - Diagnosis Discharge Problem: Rash GI bleeding Qualifiers: GI bleed type/associated pathology: unspecified peptic ulcer Qualified Code(s) : K27.4 - Chronic or unspecified peptic ulcer, site unspecified, with hemorrhage Decubitus ulcer Qualifiers: Pressure ulcer location: buttock Pressure ulcer stage: stage 2 Laterality: left Qualified Code(s): L89.322 - Pressure ulcer of left buttock, stage 2 - Discharge Plan Disposition: ADMITTED INPATIENT Condition: Stable - Follow ups/Referrals - Instructions
[2017-10-06 10:43] LABS: BASOPHILS % (AUTO) 0.3 % (0.2-1.0); EOSINOPHILS % (AUTO) 0.3 % (0.9-2.9); HEMATOCRIT 34.9 % (42.0-54.0); HEMOGLOBIN 11.4 g/dL (13.5-18.0); LYMPHOCYTES # (AUTO) 0.8 X10^3/uL (1.3-2.9); LYMPHOCYTES % (AUTO) 6.8 % (21.0-51.0); MEAN CORPUSCULAR HEMOGLOBIN 28.9 pg (27.0-34.0); MEAN CORPUSCULAR HGB CONC 32.6 g/dL (33.0-35.0); MEAN CORPUSCULAR VOLUME 88.7 fL (80.0-100.0); MEAN PLATELET VOLUME 6.1 fL (7.4-11.0); MONOCYTES # (AUTO) 0.6 x10^3/uL (0.3-0.8); MONOCYTES % (AUTO) 5.3 % (0.0-13.0); NEUTROPHILS # (AUTO) 9.7 x10^3/uL (2.2-4.8); NEUTROPHILS % (AUTO) 87.3 % (42.0-75.0); PLATELET COUNT 228 X10^3/uL (150.0-450.0); RED BLOOD COUNT 3.93 X10^6/uL (4.7-6.0); RED CELL DISTRIBUTION WIDTH 14.9 % (11.6-16.5); WHITE BLOOD COUNT 11.1 X10^3/uL (3.6-10.0)
[2017-10-06 11:14] LABS: ALANINE AMINOTRANSFERASE 27 Units/L (12-78); ALBUMIN 2.6 g/dL (3.4-5.0); ALKALINE PHOSPHATASE 173 Units/L (46-116); ASPARTATE AMINO TRANSFERASE 19 Units/L (15-37); BLOOD UREA NITROGEN 13 mg/dL (7-18); CALCIUM 8.7 mg/dL (8.5-10.1); CARBON DIOXIDE 30.1 mmol/L (21-32); CHLORIDE 93 mmol/L (98-107); COR CA(FOR HYPOALB) 9.8 mg/dL (8.5-10.1); COR NA(FOR HYPERGLY) 133 mmol/L (136-145); CREATININE 1.37 mg/dL (0.70-1.30); SODIUM 130 mmol/L (136-145); TOTAL PROTEIN 7.3 g/dL (6.4-8.2); eGFR BLACK RACES > 60 (>60); eGFR NON BLACK RACES 57 (>60)
[2017-10-06] MEDS ORDERED: MORPHINE SULFATE INJ 4 MG IVP ONE (11:56)
[2017-10-06] MEDS ORDERED: ZOFRAN INJ 4 MG VIAL IVP ONE (11:56)
[2017-10-06] MEDS ORDERED: ZOFRAN INJ 4 MG VIAL ONE (11:58)
[2017-10-06] MEDS ORDERED: MORPHINE SULFATE INJ 4 MG ONE (11:59)
--- NOTE | 2017-10-06 14:10 | CT ---
HISTORY: Rectal bleeding Study: CT abdomen pelvis without contrast Comparison: 11/16/2015 Technique: Axial noncontrast images with coronal and sagittal reformats. Dose reduction procedures we re used with mA/kv adjusted for body size. This examination is limited due to the lack of intravenous and oral contrast. Findings: The lung bases are clear. The liver, spleen, adrenal glands, and pancreas are within normal limits to the limitations of an unenhanced examination. No opaque stones are visible within the gallbladder. T he kidneys are unobstructed and without stones. No ureteral calculi are identified. No enlarged intra peritoneal or retroperitoneal lymphadenopathy is identified. The appendix is not identified. There ar e no findings to suggest diverticulitis or colitis. Examination of the pelvis demonstrated no evidenc e for pelvic masses, pelvic fluid, or pelvic lymphadenopathy. No definite bladder abnormality is iden tified. No lytic or blastic skeletal lesions are identified. Severe degenerative joint disease is pre sent in the left hip joint. IMPRESSION: Limited examination for the reasons noted above No significant intra-abdominal or intrapelvic abnormality to the limitations of an examination perfor [facility] without intravenous and oral contrast. Severe degenerative joint disease left hip joint Reported By:
[2017-10-06 14:52] LABS: BILIRUBIN,URINE NEGATIVE (NEGATIVE); BLOOD/HEMOGLOBIN,URINE 2+ (NEGATIVE); GLUCOSE, URINE NEGATIVE (NEGATIVE); KETONES,URINE NEGATIVE (NEGATIVE); LEUKOCYTE ESTERASE ,URINE 1+ (NEGATIVE); NITRITES,URINE NEGATIVE (NEGATIVE); PROTEIN,URINE 3+ (NEGATIVE); UROBILINOGEN,URINE 1+ (NORMAL)
[2017-10-06 14:54] VITALS: BMI 57.2
[2017-10-06 14:59] LABS: APPEARANCE,URINE HAZY (CLEAR); BACTERIA,URINE TRACE /HPF (NEGATIVE); COLOR,URINE YELLOW (YELLOW); MUCUS,URINE FEW /HPF (NEGATIVE); RBC,URINE 0-2 /HPF (NEGATIVE); SQUAMOUS EPITHELIAL CELL,UR FEW /HPF (NEGATIVE)
[2017-10-06] MEDS: NS 1000 ML 1,000 ML IV SCH (18:23)
[2017-10-06] MEDS: SNACK - Diabetic Appropriate PO SCH (20:39)
[2017-10-06] MEDS: HumuLIN R SUBCUT PRN (20:39)
[2017-10-06] MEDS: ULTRAM PO PRN (20:40)
[2017-10-07] MEDS: NS 1000 ML 1,000 ML IV SCH ×3 (05:49→21:22)
[2017-10-07 06:05] LABS: BASOPHILS % (AUTO) 0.3 % (0.2-1.0); EOSINOPHILS # (AUTO) 0.2 x10^3/uL (0.0-0.2); EOSINOPHILS % (AUTO) 2.5 % (0.9-2.9); HEMATOCRIT 31.8 % (42.0-54.0); HEMOGLOBIN 10.4 g/dL (13.5-18.0); LYMPHOCYTES # (AUTO) 1.1 X10^3/uL (1.3-2.9); LYMPHOCYTES % (AUTO) 13.5 % (21.0-51.0); MEAN CORPUSCULAR HEMOGLOBIN 28.9 pg (27.0-34.0); MEAN CORPUSCULAR HGB CONC 32.5 g/dL (33.0-35.0); MEAN CORPUSCULAR VOLUME 88.8 fL (80.0-100.0); MEAN PLATELET VOLUME 6.3 fL (7.4-11.0); MONOCYTES # (AUTO) 0.6 x10^3/uL (0.3-0.8); MONOCYTES % (AUTO) 7.3 % (0.0-13.0); NEUTROPHILS % (AUTO) 76.4 % (42.0-75.0); PLATELET COUNT 217 X10^3/uL (150.0-450.0); RED BLOOD COUNT 3.59 X10^6/uL (4.7-6.0); RED CELL DISTRIBUTION WIDTH 14.6 % (11.6-16.5); WHITE BLOOD COUNT 7.8 X10^3/uL (3.6-10.0)
[2017-10-07] MEDS: HumuLIN R SUBCUT PRN ×3 (06:25→21:23)
[2017-10-07 06:36] LABS: ALANINE AMINOTRANSFERASE 21 Units/L (12-78); ALBUMIN 2.3 g/dL (3.4-5.0); ALKALINE PHOSPHATASE 148 Units/L (46-116); ASPARTATE AMINO TRANSFERASE 18 Units/L (15-37); BLOOD UREA NITROGEN 15 mg/dL (7-18); CALCIUM 8.4 mg/dL (8.5-10.1); CARBON DIOXIDE 29.3 mmol/L (21-32); CHLORIDE 95 mmol/L (98-107); COR CA(FOR HYPOALB) 9.8 mg/dL (8.5-10.1); COR NA(FOR HYPERGLY) 135 mmol/L (136-145); CREATININE 1.22 mg/dL (0.70-1.30); SODIUM 132 mmol/L (136-145); TOTAL PROTEIN 6.5 g/dL (6.4-8.2); eGFR BLACK RACES > 60 (>60); eGFR NON BLACK RACES > 60 (>60)
[2017-10-07] MEDS ORDERED: TYLENOL 325 MG TAB PO PRN (09:00)
--- NOTE | 2017-10-07 16:28 | CT ---
HISTORY: Pain, inflammation, drainage right-sided buttock abscess Study: CT of the pelvis Comparison: CT of the abdomen pelvis performed on October 06, 2017 Technique: Serial axial images were obtained from iliac crests symphysis with of IV contrast. Coronal sagittal reformatted images were also submitted. Findings: Scattered diverticula are seen within the visualized descending and sigmoid colon. Otherwise evaluati on of the visualized small bowel and colon is limited without oral contrast. The urinary bladder is n ot well distended but otherwise grossly unremarkable. Fat stranding in the region of right buttocks i s noted in keeping with inflammatory change. No definite large well-circumscribed focal fluid collect ions are appreciated at this time. Recommend clinical correlation and continued follow-up is indicate d further evaluation. Degenerative changes of the hips are noted left greater than right. Degenerati ve changes within the visualized spine are demonstrated as well. IMPRESSION: Inflammatory changes involving the soft tissues of the right buttock as discussed above. Diverticulosis. Degenerative changes as noted above. Reported By:
[2017-10-07] MEDS: SNACK - Diabetic Appropriate PO SCH (21:22)
[2017-10-07] MEDS: ULTRAM PO PRN (21:23)
[2017-10-08] MEDS: ULTRAM PO PRN ×4 (01:40→23:06)
[2017-10-08 07:03] LABS: BASOPHILS % (AUTO) 0.4 % (0.2-1.0); EOSINOPHILS # (AUTO) 0.2 x10^3/uL (0.0-0.2); EOSINOPHILS % (AUTO) 3.4 % (0.9-2.9); HEMATOCRIT 33.1 % (42.0-54.0); HEMOGLOBIN 10.7 g/dL (13.5-18.0); LYMPHOCYTES # (AUTO) 0.9 X10^3/uL (1.3-2.9); LYMPHOCYTES % (AUTO) 15.2 % (21.0-51.0); MEAN CORPUSCULAR HEMOGLOBIN 28.8 pg (27.0-34.0); MEAN CORPUSCULAR HGB CONC 32.3 g/dL (33.0-35.0); MEAN CORPUSCULAR VOLUME 89.1 fL (80.0-100.0); MEAN PLATELET VOLUME 6.1 fL (7.4-11.0); MONOCYTES # (AUTO) 0.4 x10^3/uL (0.3-0.8); NEUTROPHILS # (AUTO) 4.5 x10^3/uL (2.2-4.8); PLATELET COUNT 204 X10^3/uL (150.0-450.0); RED BLOOD COUNT 3.71 X10^6/uL (4.7-6.0); RED CELL DISTRIBUTION WIDTH 14.5 % (11.6-16.5)
[2017-10-08 07:06] LABS: ALANINE AMINOTRANSFERASE 27 Units/L (12-78); ALBUMIN 2.3 g/dL (3.4-5.0); ALKALINE PHOSPHATASE 172 Units/L (46-116); ASPARTATE AMINO TRANSFERASE 18 Units/L (15-37); BLOOD UREA NITROGEN 17 mg/dL (7-18); CALCIUM 8.2 mg/dL (8.5-10.1); CARBON DIOXIDE 28.7 mmol/L (21-32); CHLORIDE 101 mmol/L (98-107); COR CA(FOR HYPOALB) 9.6 mg/dL (8.5-10.1); COR NA(FOR HYPERGLY) 140 mmol/L (136-145); CREATININE 1.11 mg/dL (0.70-1.30); SODIUM 138 mmol/L (136-145); TOTAL PROTEIN 6.6 g/dL (6.4-8.2); eGFR BLACK RACES > 60 (>60); eGFR NON BLACK RACES > 60 (>60)
[2017-10-08] MEDS: NS 1000 ML 1,000 ML IV SCH (11:00)
[2017-10-08] MEDS: HumuLIN R SUBCUT PRN ×2 (16:59→20:28)
[2017-10-08] MEDS: COLACE CAP 100 MG PO SCH ×2 (18:39→20:29)
[2017-10-08] MEDS: DUONEB 0.5 MG/3 MG NEB SCH (20:06)
[2017-10-08] MEDS: NYSTATIN POWDER TOP SCH (20:29)
[2017-10-08] MEDS ORDERED: DUONEB 0.5 MG/3 MG NEB SCH (21:00)
[2017-10-08] MEDS ORDERED: REFLEX: PROVENTIL NEB & PulmiCORT NEB~ NEB SCH (21:00)
[2017-10-09] MEDS: NS 1000 ML 1,000 ML IV SCH ×2 (02:30→16:22)
[2017-10-09] MEDS: ULTRAM PO PRN ×3 (03:10→22:14)
[2017-10-09 07:09] LABS: BASOPHILS % (AUTO) 0.4 % (0.2-1.0); EOSINOPHILS # (AUTO) 0.3 x10^3/uL (0.0-0.2); EOSINOPHILS % (AUTO) 6.7 % (0.9-2.9); HEMATOCRIT 34.9 % (42.0-54.0); HEMOGLOBIN 11.1 g/dL (13.5-18.0); LYMPHOCYTES # (AUTO) 0.9 X10^3/uL (1.3-2.9); LYMPHOCYTES % (AUTO) 17.8 % (21.0-51.0); MEAN CORPUSCULAR HEMOGLOBIN 28.7 pg (27.0-34.0); MEAN CORPUSCULAR VOLUME 89.7 fL (80.0-100.0); MEAN PLATELET VOLUME 6.6 fL (7.4-11.0); MONOCYTES # (AUTO) 0.4 x10^3/uL (0.3-0.8); MONOCYTES % (AUTO) 8.4 % (0.0-13.0); NEUTROPHILS # (AUTO) 3.3 x10^3/uL (2.2-4.8); NEUTROPHILS % (AUTO) 66.7 % (42.0-75.0); PLATELET COUNT 232 X10^3/uL (150.0-450.0); RED BLOOD COUNT 3.89 X10^6/uL (4.7-6.0); RED CELL DISTRIBUTION WIDTH 14.8 % (11.6-16.5)
[2017-10-09 07:10] LABS: BLOOD UREA NITROGEN 17 mg/dL (7-18); CALCIUM 8.6 mg/dL (8.5-10.1); CARBON DIOXIDE 33.1 mmol/L (21-32); CHLORIDE 101 mmol/L (98-107); COR NA(FOR HYPERGLY) 141 mmol/L (136-145); CREATININE 1.12 mg/dL (0.70-1.30); SODIUM 140 mmol/L (136-145); eGFR BLACK RACES > 60 (>60); eGFR NON BLACK RACES > 60 (>60)
[2017-10-09 08:07] LABS: ALANINE AMINOTRANSFERASE 27 Units/L (12-78); ALBUMIN 2.5 g/dL (3.4-5.0); ALKALINE PHOSPHATASE 182 Units/L (46-116); ASPARTATE AMINO TRANSFERASE 19 Units/L (15-37); COR CA(FOR HYPOALB) 9.8 mg/dL (8.5-10.1); TOTAL PROTEIN 6.9 g/dL (6.4-8.2)
[2017-10-09] MEDS: DUONEB 0.5 MG/3 MG NEB SCH ×4 (09:37→21:45)
[2017-10-09] MEDS ORDERED: NS 1000 ML 1,000 ML ONE (09:59)
[2017-10-09] MEDS ORDERED: ANCEF VIAL 1 GM ONE (10:00)
[2017-10-09] MEDS ORDERED: DIPRIVAN VIAL ONE (10:36)
[2017-10-09] MEDS ORDERED: VERSED ONE (10:36)
[2017-10-09] MEDS ORDERED: FENTANYL INJ 100 mcg ONE (11:30)
--- NOTE | 2017-10-09 11:37 | OR.GENERIC ---
Post-Op Note Generic - Post-Op Note Operative Report: Date of Operation: October 09, 2017 Pre-Operative Diagnosis: Right medial gluteal wound with active bleeding. Post-Operative Diagnosis: Right medial gluteal wound with active bleeding. Procedures: 1. Right gluteal wound exploration. 2. Incision and drainage of right medial gluteal abscess. 3. Debridement of necrotic subcutaneous tissue. 4. Ligation of bleeding vessel with cautery. Surgeon: Odilon King MD Manager Budget: Nery Hairston CRNA Anesthesia: Monitored anesthesia care and local. Specimen: Wound culture. Estimated blood loss: Minimal Complications: None Summary: The patient is a 57 year old male who presented with a right gluteal wound demonstrating active bleeding. The patient denies purulent drainage. The patient was admitted to the hospital and surgery consulted. The patient was offered wound exploration. The risk and benefits of the procedure including difficulty with anesthesia, bleeding, infection, scar formation, delayed healing , as well as recurrence were discussed with the patient. The patient understood these risks and requested the procedure. On October 09, 2017, the patient was brought to the operative theatre and placed in a left lateral decubitus position. A time out was performed verifying the patient and the procedure. After satisfactory induction of monitored anesthesia care, the right gluteal and intergluteal fold were prepped with Chloraprep and draped in the usual fashion. Local anesthetic was infiltrated around the area of induration. The area of bleeding was noted to contain purulence with injection of local. The skin was incised sharply at the area of spontaneous drainage. A small core of skin was removed sharply. An abscess cavity was entered bluntly. Purulent drainage was noted. A culture was obtained and sent to microbiology. All loculations were disrupted bluntly. Persistent bleeding was noted inferior to the site of spontaneous drainage. The incision was extended inferiorly. A bleeding vessel was ligated using cautery. Necrotic tissue in this region was excised sharply. The abscess cavity was copiously irrigated. Bleeding was controlled using electrocautery. Next, the wound was packed with 1 Iodoform. A sterile dressing was placed. The patient was awakened and taken to the recovery room in stable condition. There were no complications. All counts were correct.
[2017-10-09] MEDS ORDERED: XYLOCAINE 1% and EPINEPHRINE 1:100,000 ONE (11:40)
[2017-10-09] MEDS ORDERED: MARCAINE 0.25% INJ ONE (11:40)
--- NOTE | 2017-10-09 11:43 | DR.CONSULT ---
Consult - Consultation for Day of: Date: 10/08/17 - Chief Complaint Chief Complaint: Intergluteal fold wound. - Allergies Allergies/Adverse Reactions: Allergies Allergy/AdvReac Type Severity Reaction Status Date / Time No Known Drug Allergies Allergy Verified 06/28/17 14:35 - History of Present Illness History of Present Illness: The patient is a 57 year old male with multiple medical problems who was admitted for lower gastrointestinal bleeding. The patient noted blood after a hard bowel movement. The patient is on anticoagulation secondary to a history of lower extremity deep vein thrombosis. The patient's vitals and H/H have been stable. Nursing noted blood tracking from the intergluteal region onto his bowel movements. The patient admits to a "bump" in the intergluteal region noted by a caregiver at home. The patient denies any purulent drainage, fever, or chills. On rnds, Dr. Bear noted persistent bleeding from a region in the intergluteal fold. A CT failed to demonstrate an obvious abscess. Surgery was consulted for wound expoloration and ligation of bleeding. The patient has not been taking anticoagulation since admission to the hospital. - Past Medical History Past Medical History: Arthritis, Asthma, CHF, COPD, Diabetes, Gout, Headaches, Hypertension, Kidney Stones Additional Medical History: Cataracts, Glaucoma, Ear Infections, Pneumonia, Pulmonary Edema, Gout, Back Pain, Skin Cancer - Past Surgical History Surgical History: Appendectomy, Ortho Surgery Additional Surgical History: Cataract Surgery, Left Ankle - Family History Family Medical History: Diabetes Mellitus, [place], Sudden Cardiac , Hypertension - Social History Does patient currently use any type of tobacco product: No Have you used tobacco products in the last 12 months: No Type of Tobacco Use: None Does any household member use tobacco: No Alcohol Use: None Drug Use: None - Medications Home Medications: Docusate Sodium [Stool Softener] 1 tab PO DAILY 10/06/17 [History Confirmed ] Insulin Glargine (Lantus) [LANTUS INSULIN 10 ML VIAL *] 2 units SC HS 10/06/17 [ History Confirmed 10/06/17] - Review of Systems Constitutional: No Symptoms Reported Eyes: No Symptoms Reported ENT: No Symptoms Reported Respiratory: No Symptoms Reported Cardiovascular: No Symptoms Reported Gastrointestinal: Hematochezia Genitourinary: No Symptoms Reported Musculoskeletal: No Symptoms Reported Skin: No Symptoms Reported Neurological: No Symptoms Reported - Physical Exam Vital Signs: Temperature 96.8 F Pulse Rate [Left Brachial] 77 Pulse Rate 86 Respiratory Rate 20 Blood Pressure [Right Arm] 121/60 Blood Pressure [Left Arm] 142/65 Blood Pressure 105/60 O2 Sat by Pulse Oximetry 97 Oriented: Normal Respiratory: Clear Throughout Cardiovascular: Normal Auscultation: Bowel Sounds: Normal Palpation: Normal Tenderness: Normal Skin: Red, Tender, Wound, Ecchymosis, Other (Right medial gluteus region with induration and mild bleeding.) Musculoskeletal: Normal Psychiatric: Normal Mood Description: Calm Affect: Normal Speech Pattern: Clear, Appropriate - Plan Plan: 57 year old male with intergluteal wound and persistent bleeding. VSS. H /H without significant change. However, wound demonstrates bleeding. Patient with decreased mobility and history of deep vein thrombosis so will need to resume anticoagulation. Despite imaging, concern for gluteal abscess with inflammation and venous bleeding. Needs wound exploration. Risk / benefits discussed with the patient. All questions answered. Thank you for this consultation.
[2017-10-09] MEDS ORDERED: NS IRRIGATION 1000 ML 1,000 ML IR ONE (12:00)
[2017-10-09] MEDS ORDERED: VANCOMYCIN HCL 500 MG VIAL 250 MG, VANCOMYCIN HCL 1 GM VIAL 1 GM in D5W 250 ML IV 250 ML IV SCH (12:53)
[2017-10-09] MEDS: ASPIRIN EC 81 MG PO SCH (13:25)
[2017-10-09] MEDS: COZAAR PO SCH (13:25)
[2017-10-09] MEDS: PROCARDIA XL PO SCH (13:25)
[2017-10-09] MEDS: FOLIC ACID TAB 1 MG PO SCH (13:26)
[2017-10-09] MEDS: ZyrTEC TAB 10 MG PO SCH (13:27)
[2017-10-09] MEDS: NYSTATIN POWDER TOP SCH ×2 (13:27→21:25)
[2017-10-09] MEDS ORDERED: VANCOMYCIN HCL 500 MG VIAL ONE (13:37)
[2017-10-09] MEDS ORDERED: VANCOMYCIN HCL 1 GM VIAL ONE (13:38)
[2017-10-09] MEDS ORDERED: DEXTROSE 5% 500 ML IV ONE (13:42)
[2017-10-09] MEDS: ZOSYN VIAL 3.375 GM 3.375 GM in NS 100 ML IV + SPIKE MINIBAG* 100 ML IV SCH ×3 (14:19→21:22)
[2017-10-09] MEDS ORDERED: NS 500 ML IV 500 ML IV ONE (15:22)
[2017-10-09] MEDS: HumuLIN R SUBCUT PRN ×2 (16:15→21:24)
--- NOTE | 2017-10-09 17:15 | DR.H&P ---
H&P - History & Physical for Day of: H&P Date: 10/06/17 - Chief Complaint Chief Complaint: rectal bleeding, abdominal pain - Allergies Allergies/Adverse Reactions: Allergies Allergy/AdvReac Type Severity Reaction Status Date / Time No Known Drug Allergies Allergy Verified 06/28/17 14:35 - History of Present Illness History of Present Illness: is a 57 year old patient of ours who presented to the emergency room via EMS with complaints of rectal bleedbing that began approximately one week ago. Patient states that approximately one week ago, he strained to have a bowel movement and noticed bright red blood in the toilet. He reports intermittent rectal bleeding since. He reports that bleeding is worse today than it has been. Associated symptoms are weakness, fatigue, non-productive cough, shortness of breath, wheezing, abdominal pain, and lower back pain. On arrival to the ER, patient is noted with bright red blood in his underwear. On examination, lungs are noted with wheezing and rhonchi bilaterally to auscultation. Heart rate is normal in rate and rhythm. Abdomen is round and noted with mild, diffuse abdominal tenderness on palpation. Bowel sounds are hyperactive in all quadrants. He is noted with redness to the perirectal area as well as a decubitus ulcers x 3 to the right buttock. Patient reports a history of arthritis, asthma, CHF, COPD, diabetes, GOUT, headaches, hypertension, kidney stones, appendectomy, ortho surgery. On arrival to the ER, vital signs were 98.4, 115, 24, 95%RA, 105/60. Labs, an EKG, and CT were obtained. Abnormal lab values include the following: WBC 11.1, RBC 3.93, Hgb 11.4, Hct 34.9, MCHC 32.6, MPV 6.1, Sodium 130, Corrected Sodium 133, Potassium 5.2, Chloride 93, Creatinine 1.37, GFR(non) 57, Glucose 232, Alk Phos 173, Albumin 2.6, Globulin 4.7, A/G Ratio 0.6. Urinalysis reported: Rochelle Hazy, Protein 3+, Occult Blood 2+, Urobilinogen 1+, Leuk Edilma 1+, RBC 0-2, WBC 3-5, Squam Epith Cells Few, Bacteria Trace, Mucus Few. Stool Occult Blood: Positive. EKG reported: Sinus tachycardia. Heart fxeq=503. Abd/Pelvis CT reported: Limited examination. No significant intra-abdominal or intrapelvic abnormality to the limitations of an examination performed without intravenous and oral contrast. 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 We admitted patient for further evaluation and treatment of abdominal pain and GI bleed. We plan to follow up with AM labs and continue to monitor patient. - Past Medical History Past Medical History: Arthritis, Asthma, CHF, COPD, Diabetes, Gout, Headaches, Hypertension, Kidney Stones Additional Medical History: Cataracts, Glaucoma, Ear Infections, Pneumonia, Pulmonary Edema, Gout, Back Pain, Skin Cancer - Past Surgical History Surgical History: Appendectomy, Ortho Surgery Additional Surgical History: Cataract Surgery, Left Ankle - Family History Family Medical History: Diabetes Mellitus, [place], Sudden Cardiac , Hypertension - Social History Does patient currently use any type of tobacco product: No Have you used tobacco products in the last 12 months: No Type of Tobacco Use: None Does any household member use tobacco: No Alcohol Use: None Drug Use: None - Medications Home Medications: Docusate Sodium [Stool Softener] 1 tab PO DAILY 10/06/17 [History Confirmed ] Insulin Glargine (Lantus) [LANTUS INSULIN 10 ML VIAL *] 2 units SC HS 10/06/17 [ History Confirmed 10/06/17] - Review of Systems Constitutional: Weakness Eyes: No Symptoms Reported. denies: See HPI, Pain, Vision Change, Conjunctivae Inflammation, Eyelid Inflammation, Redness, Other ENT: No Symptoms Reported. denies: See HPI, Ear Pain, Ear Discharge, Nose Pain , Nose Discharge, Nose Congestion, Mouth Pain, Mouth Swelling, Throat Pain, Throat Swelling, Other Respiratory: Cough, Shortness of Breath, Wheezing. denies: Hemoptysis, Sputum Cardiovascular: No Symptoms Reported. denies: Chest Pain, See HPI, Palpitations , Orthopnea, Paroxysmal Noc. Dyspnea, Edema, Light Headedness, Other Gastrointestinal: See HPI, Nausea, Abdominal Pain, Melena, Hematochezia. denies : Diarrhea, Constipation Genitourinary: No Symptoms Reported. denies: See HPI, Dysuria, Frequency, Incontinence, Hematuria, Retention, Other Musculoskeletal: See HPI, Back Pain, Other (generalized joint pain ) Skin: Rash (perianal ), Wound (right buttock decubitus ulcer ) Neurological: Weakness - Physical Exam Vital Signs: Temperature 97.8 F Pulse Rate [Left Brachial] 96 Pulse Rate 88 Respiratory Rate 20 Blood Pressure [Right Arm] 121/60 Blood Pressure [Left Arm] 119/56 Blood Pressure 105/60 O2 Sat by Pulse Oximetry 96 Oriented: Normal Eyes: Normal. negative: Blurred Vision, Diplopia, Discharge, Pain, Redness, Photophobia, Other Ear: Normal. negative: Right, Left, Swelling, Ecchymosis, Hemotypanum, Abrasion , Laceration Nose: Normal. negative: Injected, Discharge, Blood, Other Throat: Normal. negative: Tonsillar Hypertrophy, Red, Exudate, Dry, Other Respiratory: Rhonchi Throughout, Wheezes Throughout Cardiovascular: Normal, Systolic. negative: Tachycardia, Bradycardia, Irregular , S3, S4, Murmur, Edema : Normal. negative: Discharge, Testicular Pain Auscultation: Bowel Sounds: Increased Palpation: Normal Tenderness: Diffuse, Mild. negative: Rebound, Guarding, Rigidity Skin: Red, Wound (right buttock decubitus, redness ) Musculoskeletal: Normal, Back:Lumbar (pain ) Psychiatric: Normal Mood Description: Calm Affect: Normal Speech Pattern: Clear - Assessment/Plan (1) GI bleeding Qualifiers: GI bleed type/associated pathology: unspecified peptic ulcer Qualified Code (s): K27.4 - Chronic or unspecified peptic ulcer, site unspecified, with hemorrhage Status: Acute Plan: normal saline at 75ml/hr, check h&h, continue to monitor (2) Decubitus ulcer Qualifiers: Pressure ulcer location: buttock Pressure ulcer stage: stage 2 Laterality : left Qualified Code(s): L89.322 - Pressure ulcer of left buttock, stage 2 Status: Acute Plan: wound care, continue to monitor
[2017-10-09] MEDS: SNACK - Diabetic Appropriate PO SCH (20:00)
[2017-10-09] MEDS: ELIQUIS PO SCH (21:21)
[2017-10-09] MEDS: COLACE CAP 100 MG PO SCH (21:22)
[2017-10-09] MEDS: LANTUS SC SCH (21:22)
[2017-10-09] MEDS: REFLEX: PROVENTIL NEB & PulmiCORT NEB~ NEB SCH (21:45)
[2017-10-10] MEDS: ULTRAM PO PRN ×2 (04:16→11:26)
[2017-10-10] MEDS: ZOSYN VIAL 3.375 GM 3.375 GM in NS 100 ML IV + SPIKE MINIBAG* 100 ML IV SCH ×3 (05:46→21:20)
[2017-10-10 06:07] LABS: BASOPHILS % (AUTO) 0.4 % (0.2-1.0); EOSINOPHILS # (AUTO) 0.4 x10^3/uL (0.0-0.2); HEMATOCRIT 30.8 % (42.0-54.0); HEMOGLOBIN 9.9 g/dL (13.5-18.0); LYMPHOCYTES # (AUTO) 0.9 X10^3/uL (1.3-2.9); LYMPHOCYTES % (AUTO) 16.6 % (21.0-51.0); MEAN CORPUSCULAR HEMOGLOBIN 28.6 pg (27.0-34.0); MEAN CORPUSCULAR VOLUME 89.4 fL (80.0-100.0); MEAN PLATELET VOLUME 6.2 fL (7.4-11.0); MONOCYTES # (AUTO) 0.4 x10^3/uL (0.3-0.8); MONOCYTES % (AUTO) 7.4 % (0.0-13.0); NEUTROPHILS # (AUTO) 3.6 x10^3/uL (2.2-4.8); NEUTROPHILS % (AUTO) 68.6 % (42.0-75.0); PLATELET COUNT 235 X10^3/uL (150.0-450.0); RED BLOOD COUNT 3.45 X10^6/uL (4.7-6.0); RED CELL DISTRIBUTION WIDTH 14.6 % (11.6-16.5); WHITE BLOOD COUNT 5.2 X10^3/uL (3.6-10.0)
[2017-10-10] MEDS: HumuLIN R SUBCUT PRN ×4 (06:16→20:25)
[2017-10-10 06:24] LABS: ALANINE AMINOTRANSFERASE 22 Units/L (12-78); ALBUMIN 2.2 g/dL (3.4-5.0); ALKALINE PHOSPHATASE 150 Units/L (46-116); ASPARTATE AMINO TRANSFERASE 16 Units/L (15-37); BLOOD UREA NITROGEN 13 mg/dL (7-18); CALCIUM 7.6 mg/dL (8.5-10.1); CARBON DIOXIDE 32.3 mmol/L (21-32); CHLORIDE 101 mmol/L (98-107); COR NA(FOR HYPERGLY) 140 mmol/L (136-145); CREATININE 1.26 mg/dL (0.70-1.30); SODIUM 137 mmol/L (136-145); TOTAL PROTEIN 6.1 g/dL (6.4-8.2); eGFR BLACK RACES > 60 (>60); eGFR NON BLACK RACES > 60 (>60)
[2017-10-10] MEDS ORDERED: DEXTROSE 5% 500 ML IV ONE (08:02)
[2017-10-10] MEDS ORDERED: VANCOMYCIN HCL 1 GM VIAL ONE ×2 (08:03→20:19)
[2017-10-10] MEDS ORDERED: VANCOMYCIN HCL 500 MG VIAL ONE ×2 (08:03→20:19)
[2017-10-10] MEDS: DUONEB 0.5 MG/3 MG NEB SCH ×4 (08:36→21:14)
[2017-10-10] MEDS: REFLEX: PROVENTIL NEB & PulmiCORT NEB~ NEB SCH ×2 (08:41→21:14)
[2017-10-10] MEDS: VANCOMYCIN HCL 500 MG VIAL 250 MG, VANCOMYCIN HCL 1 GM VIAL 1 GM in D5W 250 ML IV 250 ML IV SCH ×2 (08:42→21:21)
[2017-10-10] MEDS: PROCARDIA XL PO SCH (09:44)
[2017-10-10] MEDS: NYSTATIN POWDER TOP SCH ×2 (09:44→20:26)
[2017-10-10] MEDS: FOLIC ACID TAB 1 MG PO SCH (09:44)
[2017-10-10] MEDS: ASPIRIN EC 81 MG PO SCH (09:44)
[2017-10-10] MEDS: ZyrTEC TAB 10 MG PO SCH (09:44)
[2017-10-10] MEDS: NS 1000 ML 1,000 ML IV SCH ×2 (09:45→22:50)
[2017-10-10] MEDS: ELIQUIS PO SCH ×2 (09:45→20:24)
[2017-10-10] MEDS: COZAAR PO SCH (09:45)
[2017-10-10] MEDS ORDERED: NS IRRIGATION 500 ML IR ONE (10:58)
[2017-10-10] MEDS: NORCO 5/325 MG TAB PO PRN (19:30)
[2017-10-10] MEDS: SNACK - Diabetic Appropriate PO SCH (20:00)
[2017-10-10] MEDS ORDERED: NS 500 ML IV 500 ML IV ONE (20:18)
[2017-10-10] MEDS: COLACE CAP 100 MG PO SCH (20:24)
[2017-10-10] MEDS: LANTUS SC SCH (20:24)
[2017-10-11] MEDS: ULTRAM PO PRN ×2 (00:09→04:32)
[2017-10-11] MEDS: NORCO 5/325 MG TAB PO PRN ×3 (02:08→23:04)
[2017-10-11] MEDS: NS 1000 ML 1,000 ML IV SCH ×3 (02:09→13:29)
[2017-10-11] MEDS: ZOSYN VIAL 3.375 GM 3.375 GM in NS 100 ML IV + SPIKE MINIBAG* 100 ML IV SCH ×3 (05:22→21:02)
[2017-10-11] MEDS: HumuLIN R SUBCUT PRN ×4 (05:23→21:02)
[2017-10-11 05:48] LABS: BLOOD UREA NITROGEN 14 mg/dL (7-18); CALCIUM 8.2 mg/dL (8.5-10.1); CARBON DIOXIDE 33.7 mmol/L (21-32); CHLORIDE 105 mmol/L (98-107); COR NA(FOR HYPERGLY) 143 mmol/L (136-145); CREATININE 1.38 mg/dL (0.70-1.30); SODIUM 141 mmol/L (136-145); eGFR BLACK RACES > 60 (>60); eGFR NON BLACK RACES 56 (>60)
[2017-10-11 06:06] LABS: ALANINE AMINOTRANSFERASE 24 Units/L (12-78); ALBUMIN 2.2 g/dL (3.4-5.0); ALKALINE PHOSPHATASE 142 Units/L (46-116); ASPARTATE AMINO TRANSFERASE 18 Units/L (15-37); COR CA(FOR HYPOALB) 9.6 mg/dL (8.5-10.1); TOTAL PROTEIN 6.1 g/dL (6.4-8.2)
[2017-10-11 06:12] LABS: BASOPHILS % (AUTO) 0.5 % (0.2-1.0); EOSINOPHILS # (AUTO) 0.4 x10^3/uL (0.0-0.2); EOSINOPHILS % (AUTO) 7.8 % (0.9-2.9); HEMATOCRIT 30.1 % (42.0-54.0); HEMOGLOBIN 9.6 g/dL (13.5-18.0); LYMPHOCYTES # (AUTO) 0.9 X10^3/uL (1.3-2.9); LYMPHOCYTES % (AUTO) 18.4 % (21.0-51.0); MEAN CORPUSCULAR HEMOGLOBIN 28.5 pg (27.0-34.0); MEAN PLATELET VOLUME 6.1 fL (7.4-11.0); MONOCYTES # (AUTO) 0.3 x10^3/uL (0.3-0.8); MONOCYTES % (AUTO) 6.7 % (0.0-13.0); NEUTROPHILS # (AUTO) 3.4 x10^3/uL (2.2-4.8); NEUTROPHILS % (AUTO) 66.6 % (42.0-75.0); PLATELET COUNT 230 X10^3/uL (150.0-450.0); RED BLOOD COUNT 3.38 X10^6/uL (4.7-6.0); RED CELL DISTRIBUTION WIDTH 14.8 % (11.6-16.5); WHITE BLOOD COUNT 5.1 X10^3/uL (3.6-10.0)
[2017-10-11] MEDS: ASPIRIN EC 81 MG PO SCH (08:29)
[2017-10-11] MEDS: PROCARDIA XL PO SCH (08:29)
[2017-10-11] MEDS: FOLIC ACID TAB 1 MG PO SCH (08:29)
[2017-10-11] MEDS: COZAAR PO SCH (08:29)
[2017-10-11] MEDS: ZyrTEC TAB 10 MG PO SCH (08:29)
[2017-10-11] MEDS: ELIQUIS PO SCH ×2 (08:29→20:59)
[2017-10-11] MEDS: NYSTATIN POWDER TOP SCH ×2 (08:31→21:01)
[2017-10-11] MEDS ORDERED: VANCOMYCIN HCL 500 MG VIAL 250 MG, VANCOMYCIN HCL 1 GM VIAL 1 GM in NS 250 ML IV 250 ML IV SCH (09:00)
[2017-10-11 09:48] LABS: CREATININE 1.39 mg/dL (0.70-1.30); VANCOMYCIN,TROUGH 14.8 ug/mL (15-20)
[2017-10-11] MEDS: DUONEB 0.5 MG/3 MG NEB SCH ×4 (09:57→21:30)
[2017-10-11] MEDS: REFLEX: PROVENTIL NEB & PulmiCORT NEB~ NEB SCH ×2 (09:57→21:29)
[2017-10-11] MEDS: VANCOMYCIN HCL 500 MG VIAL 250 MG, VANCOMYCIN HCL 1 GM VIAL 1 GM in NS 250 ML IV 250 ML IV SCH ×2 (10:09→21:01)
[2017-10-11] MEDS: SNACK - Diabetic Appropriate PO SCH (20:00)
[2017-10-11] MEDS: COLACE CAP 100 MG PO SCH (20:59)
[2017-10-11] MEDS: LANTUS SC SCH (21:00)
[2017-10-12] MEDS: NS 1000 ML 1,000 ML IV SCH ×2 (00:08→15:15)
[2017-10-12] MEDS: ULTRAM PO PRN (01:43)
[2017-10-12] MEDS: ZOSYN VIAL 3.375 GM 3.375 GM in NS 100 ML IV + SPIKE MINIBAG* 100 ML IV SCH ×3 (05:04→21:37)
[2017-10-12 06:02] LABS: ALANINE AMINOTRANSFERASE 32 Units/L (12-78); ALBUMIN 2.4 g/dL (3.4-5.0); ALKALINE PHOSPHATASE 145 Units/L (46-116); ASPARTATE AMINO TRANSFERASE 24 Units/L (15-37); BLOOD UREA NITROGEN 9 mg/dL (7-18); CALCIUM 8.1 mg/dL (8.5-10.1); CARBON DIOXIDE 32.2 mmol/L (21-32); CHLORIDE 104 mmol/L (98-107); COR CA(FOR HYPOALB) 9.4 mg/dL (8.5-10.1); COR NA(FOR HYPERGLY) 143 mmol/L (136-145); CREATININE 1.12 mg/dL (0.70-1.30); SODIUM 141 mmol/L (136-145); TOTAL PROTEIN 6.3 g/dL (6.4-8.2); eGFR BLACK RACES > 60 (>60); eGFR NON BLACK RACES > 60 (>60)
[2017-10-12] MEDS: NORCO 5/325 MG TAB PO PRN ×3 (06:07→23:14)
[2017-10-12] MEDS: HumuLIN R SUBCUT PRN ×3 (06:11→21:35)
[2017-10-12 06:40] LABS: BASOPHILS % (AUTO) 0.4 % (0.2-1.0); EOSINOPHILS # (AUTO) 0.4 x10^3/uL (0.0-0.2); EOSINOPHILS % (AUTO) 9.1 % (0.9-2.9); HEMATOCRIT 31.9 % (42.0-54.0); HEMOGLOBIN 10.2 g/dL (13.5-18.0); LYMPHOCYTES # (AUTO) 0.8 X10^3/uL (1.3-2.9); LYMPHOCYTES % (AUTO) 18.6 % (21.0-51.0); MEAN CORPUSCULAR HEMOGLOBIN 28.5 pg (27.0-34.0); MEAN CORPUSCULAR HGB CONC 31.9 g/dL (33.0-35.0); MEAN CORPUSCULAR VOLUME 89.3 fL (80.0-100.0); MONOCYTES # (AUTO) 0.3 x10^3/uL (0.3-0.8); MONOCYTES % (AUTO) 5.7 % (0.0-13.0); NEUTROPHILS % (AUTO) 66.2 % (42.0-75.0); PLATELET COUNT 236 X10^3/uL (150.0-450.0); RED BLOOD COUNT 3.57 X10^6/uL (4.7-6.0); RED CELL DISTRIBUTION WIDTH 14.8 % (11.6-16.5); WHITE BLOOD COUNT 4.5 X10^3/uL (3.6-10.0)
[2017-10-12] MEDS: DUONEB 0.5 MG/3 MG NEB SCH ×3 (09:00→20:44)
[2017-10-12] MEDS: ASPIRIN EC 81 MG PO SCH (10:00)
[2017-10-12] MEDS: ZyrTEC TAB 10 MG PO SCH (10:00)
[2017-10-12] MEDS: FOLIC ACID TAB 1 MG PO SCH (10:00)
[2017-10-12] MEDS: ELIQUIS PO SCH ×2 (10:00→21:10)
[2017-10-12] MEDS: COZAAR PO SCH (10:00)
[2017-10-12] MEDS: PROCARDIA XL PO SCH (10:00)
[2017-10-12] MEDS: NYSTATIN POWDER TOP SCH ×2 (11:11→21:09)
[2017-10-12] MEDS: VANCOMYCIN HCL 500 MG VIAL 250 MG, VANCOMYCIN HCL 1 GM VIAL 1 GM in NS 250 ML IV 250 ML IV SCH ×2 (11:11→21:10)
[2017-10-12] MEDS: COLACE CAP 100 MG PO SCH (21:10)
[2017-10-12] MEDS: SNACK - Diabetic Appropriate PO SCH (21:11)
[2017-10-12] MEDS: LANTUS SC SCH (21:34)
[2017-10-13] MEDS: ULTRAM PO PRN (03:07)
[2017-10-13] MEDS: NS 1000 ML 1,000 ML IV SCH (04:25)
[2017-10-13] MEDS: ZOSYN VIAL 3.375 GM 3.375 GM in NS 100 ML IV + SPIKE MINIBAG* 100 ML IV SCH ×2 (05:24→15:16)
[2017-10-13] MEDS: NORCO 5/325 MG TAB PO PRN (05:25)
[2017-10-13] MEDS: HumuLIN R SUBCUT PRN ×2 (06:29→13:30)
[2017-10-13 08:40] LABS: CREATININE 1.41 mg/dL (0.70-1.30)
[2017-10-13] MEDS: VANCOMYCIN HCL 500 MG VIAL 250 MG, VANCOMYCIN HCL 1 GM VIAL 1 GM in NS 250 ML IV 250 ML IV SCH (09:00)
[2017-10-13] MEDS: DUONEB 0.5 MG/3 MG NEB SCH (09:09)
[2017-10-13] MEDS: PROCARDIA XL PO SCH (09:17)
[2017-10-13] MEDS: COZAAR PO SCH (09:17)
[2017-10-13] MEDS: ASPIRIN EC 81 MG PO SCH (09:17)
[2017-10-13] MEDS: ELIQUIS PO SCH (09:17)
[2017-10-13] MEDS: ZyrTEC TAB 10 MG PO SCH (09:17)
[2017-10-13] MEDS: FOLIC ACID TAB 1 MG PO SCH (09:17)
[2017-10-13] MEDS: NYSTATIN POWDER TOP SCH (09:21)
[2017-10-13 12:16] VITALS: BP 126/69
[2017-10-13] MEDS ORDERED: DUONEB 0.5 MG/3 MG ONE (12:47)
[2017-10-13] MEDS ORDERED: VANCOMYCIN HCL 500 MG VIAL 250 MG, VANCOMYCIN HCL 1 GM VIAL 1 GM in D5W 250 ML IV 250 ML IV SCH (16:00)
[2017-10-13] MEDS ORDERED: VANCOMYCIN HCL 1 GM VIAL 1 GM in D5W 250 ML IV 250 ML IV SCH (21:00)
[2017-10-13] MEDS ORDERED: ZOSYN IV SCH (22:00)
[2017-10-13] MEDS ORDERED: SPIKE MINIBAG IV SCH (22:00)
[2017-10-13] MEDS ORDERED: NS IV SCH (22:00)
== END 2017-10-13 16:35 | disposition home or self-care (01) | DRG 580 ==
LOC: ER 10:20 → INTOOBSV 14:16 → OBSVTOIN 14:16 → ICU 14:16 → OBSVTOIN 10-08 12:15 → OBS 10-12 08:50
PROVIDERS: ADMIT Internal Medicine; ATTEND Internal Medicine
PROC: 0Y310ZZ Control Bleeding in Left Buttock, Open Approach (ICD-10-PCS; 2017-10-09)
PROC: 0J990ZX Drainage of Buttock Subcutaneous Tissue and Fascia, Open Approach, Diagnostic (ICD-10-PCS; principal; 2017-10-09 10:00)
DX: L89.322 Pressure ulcer of left buttock, stage 2 (principal); L02.31 Cutaneous abscess of buttock; R10.84 Generalized abdominal pain; E11.65 Type 2 diabetes mellitus with hyperglycemia; R06.02 Shortness of breath; J44.9 Chronic obstructive pulmonary disease, unspecified; I10 Essential (primary) hypertension; B95.62 Methicillin resistant Staphylococcus aureus infection as the cause of diseases classified elsewhere; B96.29 Other Escherichia coli [E. coli] as the cause of diseases classified elsewhere; Z86.718 Personal history of other venous thrombosis and embolism; Z79.01 Long term (current) use of anticoagulants; R26.89 Other abnormalities of gait and mobility
CPT/HCPCS: 36415; 72193; 74176; 80053; 80202; 81001; 82270; 82565; 85025; 85610; 85730; 87070; 87075; 87077; 87186; 87205; 93005; 93010; 94640; 96365; 96374; 99231; 99284; A4222; S0020; G0378; J0690; J1815; J2001; J2250; J2270; J2405; J2543; J3010; J3370; J3490; J7620

== ENCOUNTER 2017-10-22 12:14 | Inpatient (IN) | payer OTHER ==
[2017-10-22 15:44] LABS: BASOPHILS % (AUTO) 0.7 % (0.2-1.0); EOSINOPHILS # (AUTO) 0.3 x10^3/uL (0.0-0.2); EOSINOPHILS % (AUTO) 5.4 % (0.9-2.9); HEMATOCRIT 37.3 % (42.0-54.0); HEMOGLOBIN 11.8 g/dL (13.5-18.0); LYMPHOCYTES % (AUTO) 16.6 % (21.0-51.0); MEAN CORPUSCULAR HEMOGLOBIN 28.4 pg (27.0-34.0); MEAN CORPUSCULAR HGB CONC 31.5 g/dL (33.0-35.0); MEAN CORPUSCULAR VOLUME 90.3 fL (80.0-100.0); MEAN PLATELET VOLUME 6.6 fL (7.4-11.0); MONOCYTES # (AUTO) 0.3 x10^3/uL (0.3-0.8); MONOCYTES % (AUTO) 4.4 % (0.0-13.0); NEUTROPHILS # (AUTO) 4.6 x10^3/uL (2.2-4.8); NEUTROPHILS % (AUTO) 72.9 % (42.0-75.0); PLATELET COUNT 177 X10^3/uL (150.0-450.0); RED BLOOD COUNT 4.14 X10^6/uL (4.7-6.0); RED CELL DISTRIBUTION WIDTH 15.5 % (11.6-16.5); WHITE BLOOD COUNT 6.3 X10^3/uL (3.6-10.0)
[2017-10-22 15:57] LABS: ALANINE AMINOTRANSFERASE 29 Units/L (12-78); ALBUMIN 3.2 g/dL (3.4-5.0); ALKALINE PHOSPHATASE 135 Units/L (46-116); ASPARTATE AMINO TRANSFERASE 19 Units/L (15-37); BLOOD UREA NITROGEN 19 mg/dL (7-18); CALCIUM 8.3 mg/dL (8.5-10.1); CARBON DIOXIDE 32.9 mmol/L (21-32); CHLORIDE 103 mmol/L (98-107); COR CA(FOR HYPOALB) 8.9 mg/dL (8.5-10.1); COR NA(FOR HYPERGLY) 142 mmol/L (136-145); CREATININE 1.25 mg/dL (0.70-1.30); SODIUM 139 mmol/L (136-145); eGFR BLACK RACES > 60 (>60); eGFR NON BLACK RACES > 60 (>60)
--- NOTE | 2017-10-22 20:37 | OR.GENERIC ---
Post-Op Note Generic - Post-Op Note Operative Report: Procedure Note October 22, 2017 Pre-Operative Diagnosis: Phlebosclerosis. Post-Operative Diagnosis: Phlebosclerosis. Procedure: Placement of right internal jugular central venous line (ultrasound guided). Surgeon: Odilon King MD. Button Attaching Machine Operator: None. Specimens: None. Estimated blood loss: Minimal. Complications: None. Summary: The patient is a 57 year old male who developed phlebosclerosis. Surgery was consulted for central venous line placement. The risk and benefits of the procedure including difficulty with anesthesia, bleeding, infection, cava thrombosis, DVT, PE, as well as pneumothorax were discussed with the paient. The patient understood these risks and requested the procedure. On October 22, 2017, the patients right neck was prepped with Chloraprep and draped in the usual sterile fashion. The skin and subcutaneous tissue overlying the right internal jugular vein was anesthetized using local anesthetic. The right internal jugular vein was then cannulated under ultrasound guidance. A wire was placed into the superior vena cava. A skin sam was made at the cannulation site. The subcutaneous tissue was dilated using the Seldinger technique. Next, a central venous catheter was advanced into the right internal jugular vein using the Seldinger technique. All ports wiliam and flushed easily. The catheter was sewn to the skin with 2-0 Silk suture. A sterile dressing was placed. The patient tolerated the procedure well. There were no complications.
--- NOTE | 2017-10-22 20:43 | RAD ---
Chest, one-view Indication: Central line placement Comparison: 07/02/2017 Findings: There is stable cardiomegaly and mild pulmonary vascular congestion without overt edema. No focal consolidation or significant effusion is identified. Tip of the right IJ CVL projects over the cavoatrial junction without pneumothorax. Impression: Satisfactory right IJ CVL placement without pneumothorax or acute cardiopulmonary abnormality. Reported By:
[2017-10-22] MEDS: LEVAQUIN PREMIX IV 750 MG 750 MG/150 ML BAG IV SCH (20:51)
[2017-10-22] MEDS: NS 1000 ML 1,000 ML IV SCH (20:51)
[2017-10-22] MEDS: VANCOMYCIN HCL 1 GM VIAL 1 GM in NS 250 ML IV 250 ML IV SCH (20:59)
--- NOTE | 2017-10-22 21:47 | DR.UPDATE ---
H&P Update History and Physical Update: WAS SEEN IN THE OFFICE TODAY. A H&P WAS COMPLETED PRIOR TO ADMISSION. PATIENT HAS BEEN SEEN AND EXAMINED WITH NO CHANGES NOTED TO H&P. Changes noted: NO Yes with the following:
[2017-10-23] MEDS: ULTRAM PO PRN ×4 (01:20→23:33)
[2017-10-23] MEDS: NS 1000 ML 1,000 ML IV SCH ×3 (04:04→20:44)
[2017-10-23 04:47] LABS: BASOPHILS % (AUTO) 0.5 % (0.2-1.0); EOSINOPHILS # (AUTO) 0.4 x10^3/uL (0.0-0.2); EOSINOPHILS % (AUTO) 7.3 % (0.9-2.9); HEMATOCRIT 34.7 % (42.0-54.0); HEMOGLOBIN 10.9 g/dL (13.5-18.0); LYMPHOCYTES # (AUTO) 1.1 X10^3/uL (1.3-2.9); LYMPHOCYTES % (AUTO) 23.9 % (21.0-51.0); MEAN CORPUSCULAR HEMOGLOBIN 28.3 pg (27.0-34.0); MEAN CORPUSCULAR HGB CONC 31.5 g/dL (33.0-35.0); MEAN CORPUSCULAR VOLUME 89.8 fL (80.0-100.0); MEAN PLATELET VOLUME 6.8 fL (7.4-11.0); MONOCYTES # (AUTO) 0.3 x10^3/uL (0.3-0.8); MONOCYTES % (AUTO) 6.7 % (0.0-13.0); NEUTROPHILS % (AUTO) 61.6 % (42.0-75.0); PLATELET COUNT 164 X10^3/uL (150.0-450.0); RED BLOOD COUNT 3.86 X10^6/uL (4.7-6.0); WHITE BLOOD COUNT 4.8 X10^3/uL (3.6-10.0)
[2017-10-23 04:50] LABS: ALANINE AMINOTRANSFERASE 25 Units/L (12-78); ALBUMIN 2.8 g/dL (3.4-5.0); ALKALINE PHOSPHATASE 119 Units/L (46-116); ASPARTATE AMINO TRANSFERASE 16 Units/L (15-37); BLOOD UREA NITROGEN 17 mg/dL (7-18); CALCIUM 8.2 mg/dL (8.5-10.1); CARBON DIOXIDE 33.5 mmol/L (21-32); CHLORIDE 104 mmol/L (98-107); COR CA(FOR HYPOALB) 9.2 mg/dL (8.5-10.1); COR NA(FOR HYPERGLY) 141 mmol/L (136-145); CREATININE 1.14 mg/dL (0.70-1.30); SODIUM 141 mmol/L (136-145); TOTAL PROTEIN 6.5 g/dL (6.4-8.2); eGFR BLACK RACES > 60 (>60); eGFR NON BLACK RACES > 60 (>60)
[2017-10-23] MEDS: VANCOMYCIN HCL 1 GM VIAL 1 GM in NS 250 ML IV 250 ML IV SCH ×2 (09:50→20:36)
[2017-10-23] MEDS: LEVAQUIN PREMIX IV 750 MG 750 MG/150 ML BAG IV SCH (09:50)
[2017-10-23 11:59] VITALS: BMI 54.3
--- NOTE | 2017-10-24 00:31 | PCM.PROG ---
Progress Note - Progress Note for Day of Date: 10/24/17 - Subjective Subjective: WAS ADMITTED FOR CELLULITIS TO THE RIGHT BUTTOCK. TODAY, HE IS ALERT AND ORIENTED, LYING IN BED ON MORNING ROUNDS. HE CONTINUES WITH COMPLAINTS OF PAIN TO THE RIGHT BUTTOCK. ON EXAMINATION, HEART IS NORMAL IN RATE AND RHYTHM. LUNG SOUNDS ARE DIMINISHED THROUGHOUT. HE IS NOTED TO BE UTILIZING OXYGEN VIA NASAL CANNULA AT 2L/MIN AT THIS TIME. ABDOMEN IS ROUND, SOFT, AND NON-TENDER WITH NORMAL BOWEL SOUNDS NOTED IN ALL QUADRANTS. THERE IS GOOD MOVEMENT NOTED IN ALL EXTREMITIES. RIGHT BUTTOCK IS NOTED WITH EXCORIATION , ERYTHEMA, AND EDEMA. WOUND IS DRAINING SEROSANGUINEOUS FLUID. A WOUND CULTURE IS PENDING. HIS VITAL SIGNS ARE STABLE THIS MORNING. HE IS HEMODYNAMICALLY STABLE. PRELIMINARY WOUND CULTURE REPORTS GRAM POSITIVE COCCI AT DAY 1. PATIENT IS CURRENTLY RECEIVING LEVAQUIN 750MG IV DAILY AND VANCOMYCIN 1GM IV Q12H. WAS CONSULTED FOR PLACEMENT OF CENTRAL LINE LAST NIGHT DUE TO FAILED PERIPHERAL ACCESS. CENTRAL LINE WAS PLACED WITHOUT DIFFICULTY. WE PLAN TO CONSULT HOME HEALTH FOR AN EXTENDED COURSE OF IV ANTIBIOTICS AFTER DISCHARGE. WE WILL DISCUSS THIS WITH CASE MANAGEMENT. OTHERWISE, WE WILL CONTINUE WITH CURRENT PLAN OF CARE TODAY. WE PLAN TO FOLLOW UP WITH AM LABS AND CONTINUE TO MONITOR PATIENT. - Past Medical Family Social History Past Med/Fam/Surg Hx: No changes since H&P Allergies: Allergies No Known Drug Allergies Allergy (Verified 06/28/17 14:35) - Review of Systems ROS: No change since H&P - Vital Signs and I&O's Vital Signs: Temperature 97.6 F Pulse Rate [Radial] 76 Respiratory Rate 20 Blood Pressure [Right Radial 122/71 Artery] Blood Pressure [Right Arm] 121/60 Blood Pressure [Left Arm] 132/62 Blood Pressure 126/69 O2 Sat by Pulse Oximetry 100 Intake and Output: Intake & Output 10/21/17 10/22/17 10/23/17 10/24/17 11:59 11:59 11:59 11:59 Intake Total 1310 1080 Output Total 200 1000 Balance 1110 80 - Physical Exam Oriented: Normal Eyes: Normal. negative: Blurred Vision, Diplopia, Discharge, Pain, Redness, Photophobia, Other Ear: Normal. negative: Right, Left, Swelling, Ecchymosis, Hemotypanum, Abrasion , Laceration Nose: Normal. negative: Injected, Discharge, Blood, Other Throat: Normal. negative: Tonsillar Hypertrophy, Red, Exudate, Dry, Other Respiratory: Generalized, Diminished Cardiovascular: Normal, Edema : Normal. negative: Dysuria, Hematuria, Frequency, Discharge, Testicular Pain , Bleeding, , Other Auscultation: Bowel Sounds: Normal. negative: Bruit, Absent, Increased, Decreased, High Pitched, Other Palpation: Normal. negative: Spleen Enlarged, Liver Enlarged, Mass Pulsatile, Other Tenderness: Normal Skin: Red, Tender, Wound (RIGHT BUTTOCK ) Musculoskeletal: Normal Psychiatric: Normal Mood Description: Calm Affect: Normal Speech Pattern: Clear, Appropriate - Laboratory and Diagnostics Result Diagrams: 10/23/17 03:25 10/23/17 03:25 Labs: 10/22/17 15:54 Buttock Gram Stain - Final 10/22/17 15:54 Buttock Wound Culture - Preliminary Laboratory WBC 4.8 X10^3/uL (3.6-10.0) 10/23/17 03:25 RBC 3.86 X10^6/uL (4.7-6.0) L 10/23/17 03:25 Hgb 10.9 g/dL (13.5-18.0) L 10/23/17 03:25 Hct 34.7 % (42.0-54.0) L 10/23/17 03:25 MCV 89.8 fL (80.0-100.0) 10/23/17 03:25 MCH 28.3 pg (27.0-34.0) 10/23/17 03:25 MCHC 31.5 g/dL (33.0-35.0) L 10/23/17 03:25 RDW 15.0 % (11.6-16.5) 10/23/17 03:25 Plt Count 164 X10^3/uL (150.0-450.0) 10/23/17 03:25 MPV 6.8 fL (7.4-11.0) L 10/23/17 03:25 Neut % 61.6 % (42.0-75.0) 10/23/17 03:25 Lymph % 23.9 % (21.0-51.0) 10/23/17 03:25 [place] % 6.7 % (0.0-13.0) 10/23/17 03:25 Eos % 7.3 % (0.9-2.9) H 10/23/17 03:25 Baso % 0.5 % (0.2-1.0) 10/23/17 03:25 Neut # 3.0 x10^3/uL (2.2-4.8) 10/23/17 03:25 Lymph # 1.1 X10^3/uL (1.3-2.9) L 10/23/17 03:25 [place] # 0.3 x10^3/uL (0.3-0.8) 10/23/17 03:25 Eos # 0.4 x10^3/uL (0.0-0.2) H 10/23/17 03:25 Baso # 0.0 X10^3/uL (0.0-0.1) 10/23/17 03:25 Absolute Nucleated RBC 0.0 /100WBC 10/23/17 03:25 Sodium 141 mmol/L (136-145) 10/23/17 03:25 Corrected Sodium 141 mmol/L (136-145) 10/23/17 03:25 Potassium 4.5 mmol/L (3.5-5.1) 10/23/17 03:25 Chloride 104 mmol/L (98-107) 10/23/17 03:25 Carbon Dioxide 33.5 mmol/L (21-32) H 10/23/17 03:25 BUN 17 mg/dL (7-18) 10/23/17 03:25 Creatinine 1.14 mg/dL (0.70-1.30) 10/23/17 03:25 Est GFR (MDRD) Af Amer > 60 (>60) 10/23/17 03:25 Est GFR (MDRD) Non-Af > 60 (>60) 10/23/17 03:25 Glucose 113 mg/dL (65-99) H 10/23/17 03:25 Calcium 8.2 mg/dL (8.5-10.1) L 10/23/17 03:25 Corrected Calcium 9.2 mg/dL (8.5-10.1) 10/23/17 03:25 Total Bilirubin 0.30 mg/dL (0.2-1.0) 10/23/17 03:25 AST 16 Units/L (15-37) 10/23/17 03:25 ALT 25 Units/L (12-78) 10/23/17 03:25 Alkaline Phosphatase 119 Units/L (46-116) H 10/23/17 03:25 Total Protein 6.5 g/dL (6.4-8.2) 10/23/17 03:25 Albumin 2.8 g/dL (3.4-5.0) L 10/23/17 03:25 Globulin 3.7 g/dL (2.5-4.5) 10/23/17 03:25 Albumin/Globulin Ratio 0.8 Ratio (1.1-2.1) L 10/23/17 03:25 - Plan (1) Cellulitis of buttock, right Status: Acute Plan: CONTINUE VANCOMYCIN Q12H, CONTINUE LEVAQUIN DAILY, CONTINUE TO MONITOR
[2017-10-24 04:40] LABS: BASOPHILS % (AUTO) 0.4 % (0.2-1.0); EOSINOPHILS # (AUTO) 0.4 x10^3/uL (0.0-0.2); EOSINOPHILS % (AUTO) 8.7 % (0.9-2.9); HEMATOCRIT 35.5 % (42.0-54.0); HEMOGLOBIN 11.2 g/dL (13.5-18.0); LYMPHOCYTES # (AUTO) 1.2 X10^3/uL (1.3-2.9); LYMPHOCYTES % (AUTO) 25.3 % (21.0-51.0); MEAN CORPUSCULAR HEMOGLOBIN 28.6 pg (27.0-34.0); MEAN CORPUSCULAR HGB CONC 31.7 g/dL (33.0-35.0); MEAN CORPUSCULAR VOLUME 90.2 fL (80.0-100.0); MEAN PLATELET VOLUME 6.7 fL (7.4-11.0); MONOCYTES # (AUTO) 0.3 x10^3/uL (0.3-0.8); MONOCYTES % (AUTO) 6.6 % (0.0-13.0); NEUTROPHILS # (AUTO) 2.7 x10^3/uL (2.2-4.8); PLATELET COUNT 154 X10^3/uL (150.0-450.0); RED BLOOD COUNT 3.94 X10^6/uL (4.7-6.0); RED CELL DISTRIBUTION WIDTH 15.2 % (11.6-16.5); WHITE BLOOD COUNT 4.7 X10^3/uL (3.6-10.0)
[2017-10-24 04:59] LABS: ALANINE AMINOTRANSFERASE 26 Units/L (12-78); ALBUMIN 2.8 g/dL (3.4-5.0); ALKALINE PHOSPHATASE 123 Units/L (46-116); ASPARTATE AMINO TRANSFERASE 18 Units/L (15-37); BLOOD UREA NITROGEN 15 mg/dL (7-18); CALCIUM 8.5 mg/dL (8.5-10.1); CARBON DIOXIDE 35.4 mmol/L (21-32); CHLORIDE 103 mmol/L (98-107); COR CA(FOR HYPOALB) 9.5 mg/dL (8.5-10.1); COR NA(FOR HYPERGLY) 140 mmol/L (136-145); SODIUM 139 mmol/L (136-145); TOTAL PROTEIN 6.5 g/dL (6.4-8.2); eGFR BLACK RACES > 60 (>60); eGFR NON BLACK RACES > 60 (>60)
[2017-10-24 09:26] LABS: CREATININE 1.26 mg/dL (0.70-1.30)
[2017-10-24] MEDS: VANCOMYCIN HCL 1 GM VIAL 1 GM in NS 250 ML IV 250 ML IV SCH ×2 (09:52→22:40)
[2017-10-24] MEDS: LEVAQUIN PREMIX IV 750 MG 750 MG/150 ML BAG IV SCH (09:54)
[2017-10-24] MEDS ORDERED: ULTRAM PO PRN (10:06)
[2017-10-24] MEDS ORDERED: NIFEDIPINE 30 MG PO SCH (10:15)
[2017-10-24] MEDS ORDERED: PATIENT'S HOME MEDICATION (Losartan Potassium [Losartan Potassium] 100 MG) PO SCH (10:15)
[2017-10-24] MEDS: DUONEB 0.5 MG/3 MG NEB PRN ×2 (11:21→21:59)
[2017-10-24] MEDS: ELIQUIS PO SCH ×2 (12:16→22:24)
[2017-10-24] MEDS: PROCARDIA XL PO SCH (12:17)
[2017-10-24] MEDS: COLACE CAP 100 MG PO SCH (12:17)
[2017-10-24] MEDS: COZAAR PO SCH (12:17)
[2017-10-24] MEDS: ASPIRIN EC 81 MG PO SCH (12:17)
[2017-10-24] MEDS: ULTRAM PO PRN (22:23)
[2017-10-24] MEDS: LANTUS SC SCH (22:29)
[2017-10-24 23:06] LABS: CREATININE 1.21 mg/dL (0.70-1.30); VANCOMYCIN,TROUGH 13.3 ug/mL (15-20)
[2017-10-25] MEDS: NORCO 5/325 MG TAB PO PRN ×2 (02:56→21:27)
[2017-10-25 05:15] LABS: BASOPHILS % (AUTO) 0.4 % (0.2-1.0); EOSINOPHILS # (AUTO) 0.4 x10^3/uL (0.0-0.2); EOSINOPHILS % (AUTO) 7.2 % (0.9-2.9); HEMATOCRIT 34.1 % (42.0-54.0); HEMOGLOBIN 10.8 g/dL (13.5-18.0); LYMPHOCYTES # (AUTO) 1.1 X10^3/uL (1.3-2.9); LYMPHOCYTES % (AUTO) 20.7 % (21.0-51.0); MEAN CORPUSCULAR HEMOGLOBIN 28.4 pg (27.0-34.0); MEAN CORPUSCULAR HGB CONC 31.6 g/dL (33.0-35.0); MEAN CORPUSCULAR VOLUME 89.8 fL (80.0-100.0); MEAN PLATELET VOLUME 6.9 fL (7.4-11.0); MONOCYTES # (AUTO) 0.3 x10^3/uL (0.3-0.8); MONOCYTES % (AUTO) 5.9 % (0.0-13.0); NEUTROPHILS # (AUTO) 3.3 x10^3/uL (2.2-4.8); NEUTROPHILS % (AUTO) 65.8 % (42.0-75.0); PLATELET COUNT 148 X10^3/uL (150.0-450.0); RED CELL DISTRIBUTION WIDTH 15.2 % (11.6-16.5); WHITE BLOOD COUNT 5.1 X10^3/uL (3.6-10.0)
[2017-10-25 05:24] LABS: ALANINE AMINOTRANSFERASE 23 Units/L (12-78); ALBUMIN 2.8 g/dL (3.4-5.0); ALKALINE PHOSPHATASE 117 Units/L (46-116); ASPARTATE AMINO TRANSFERASE 15 Units/L (15-37); BLOOD UREA NITROGEN 15 mg/dL (7-18); CALCIUM 8.2 mg/dL (8.5-10.1); CHLORIDE 102 mmol/L (98-107); COR CA(FOR HYPOALB) 9.2 mg/dL (8.5-10.1); COR NA(FOR HYPERGLY) 141 mmol/L (136-145); CREATININE 1.19 mg/dL (0.70-1.30); SODIUM 139 mmol/L (136-145); TOTAL PROTEIN 6.3 g/dL (6.4-8.2); eGFR BLACK RACES > 60 (>60); eGFR NON BLACK RACES > 60 (>60)
[2017-10-25] MEDS ORDERED: PATIENT'S HOME MEDICATION (Folic Acid [Folic Acid] 1 MG) PO SCH (07:00)
[2017-10-25] MEDS: DUONEB 0.5 MG/3 MG NEB PRN ×2 (09:12→20:05)
[2017-10-25] MEDS: ASPIRIN EC 81 MG PO SCH (09:33)
[2017-10-25] MEDS: PROCARDIA XL PO SCH (09:33)
[2017-10-25] MEDS: COZAAR PO SCH (09:33)
[2017-10-25] MEDS: FOLIC ACID TAB 1 MG PO SCH (09:34)
[2017-10-25] MEDS: ELIQUIS PO SCH (09:34)
[2017-10-25] MEDS: COLACE CAP 100 MG PO SCH (09:34)
[2017-10-25] MEDS: ULTRAM PO PRN ×2 (09:36→19:21)
[2017-10-25] MEDS: LEVAQUIN PREMIX IV 750 MG 750 MG/150 ML BAG IV SCH (09:43)
[2017-10-25] MEDS: VANCOMYCIN HCL 1 GM VIAL 1 GM in NS 250 ML IV 250 ML IV SCH ×2 (09:43→21:26)
[2017-10-25] MEDS: SNACK - Diabetic Appropriate PO SCH ×2 (09:44→21:26)
[2017-10-25] MEDS ORDERED: TORADOL 30 MG VIAL IVP PRN (10:28)
[2017-10-25] MEDS ORDERED: GENTAMICIN TOPICAL CRM TOP SCH (11:00)
[2017-10-25] MEDS: BACTRIM DS TAB PO SCH ×2 (12:42→21:27)
[2017-10-25] MEDS: RIFADIN CAP 300 MG PO SCH ×2 (12:46→21:27)
[2017-10-25] MEDS: LANTUS SC SCH (21:25)
[2017-10-25] MEDS: BACTROBAN OINT TOP SCH (21:27)
--- NOTE | 2017-10-25 21:57 | PCM.PROG ---
Progress Note - Progress Note for Day of Date: 10/24/17 - Subjective Subjective: WAS ADMITTED FOR CELLULITIS TO THE RIGHT BUTTOCK. TODAY, HE IS ALERT AND ORIENTED, LYING IN BED ON MORNING ROUNDS. HE CONTINUES WITH COMPLAINTS OF PAIN TO THE RIGHT BUTTOCK AND RIGHT HIP PAIN. ON EXAMINATION, HEART IS NORMAL IN RATE AND RHYTHM. LUNG SOUNDS ARE DIMINISHED THROUGHOUT. HE IS NOTED TO BE UTILIZING OXYGEN VIA NASAL CANNULA AT 2L/MIN AT THIS TIME. ABDOMEN IS ROUND, SOFT, AND NON-TENDER WITH NORMAL BOWEL SOUNDS NOTED IN ALL QUADRANTS. THERE IS GOOD MOVEMENT NOTED IN ALL EXTREMITIES. WOUND TO RIGHT BUTTOCK NOTED WITH DRESSING. DRESSING IS DRY AND INTACT AT THIS TIME. HIS VITAL SIGNS ARE STABLE THIS MORNING. HE IS HEMODYNAMICALLY STABLE. WOUND CULTURES REPORT GROWTH OF MRSA. IT IS SENSITIVE TO THE VANCOMYCIN THAT HE IS ON. WE PLAN TO CONSULT HOME HEALTH FOR AN EXTENDED COURSE OF IV ANTIBIOTICS AFTER DISCHARGE. WE WILL DISCUSS THIS WITH CASE MANAGEMENT. OTHERWISE, WE WILL CONTINUE WITH CURRENT PLAN OF CARE TODAY. WE PLAN TO FOLLOW UP WITH AM LABS AND CONTINUE TO MONITOR PATIENT. - Past Medical Family Social History Past Med/Fam/Surg Hx: No changes since H&P Allergies: Allergies No Known Drug Allergies Allergy (Verified 06/28/17 14:35) - Review of Systems ROS: No change since H&P - Vital Signs and I&O's Vital Signs: Temperature 98.6 F Pulse Rate [Left Brachial] 82 Pulse Rate [Radial] 78 Pulse Rate 77 Respiratory Rate 20 Blood Pressure [Right Radial 122/71 Artery] Blood Pressure [Right Arm] 121/60 Blood Pressure [Left Arm] 141/68 Blood Pressure 126/69 O2 Sat by Pulse Oximetry 99 Intake and Output: Intake & Output 10/23/17 10/24/17 10/25/17 10/26/17 11:59 11:59 11:59 11:59 Intake Total 1310 1990 1510 4413 Output Total 200 2200 2600 675 Balance 1110 -210 -1090 3738 - Physical Exam Oriented: Normal Eyes: Normal. negative: Blurred Vision, Diplopia, Discharge, Pain, Redness, Photophobia, Other Ear: Normal. negative: Right, Left, Swelling, Ecchymosis, Hemotypanum, Abrasion , Laceration Nose: Normal. negative: Injected, Discharge, Blood, Other Throat: Normal. negative: Tonsillar Hypertrophy, Red, Exudate, Dry, Other Respiratory: Generalized, Diminished Cardiovascular: Normal, Edema : Normal. negative: Dysuria, Hematuria, Frequency, Discharge, Testicular Pain , Bleeding, , Other Auscultation: Bowel Sounds: Normal. negative: Bruit, Absent, Increased, Decreased, High Pitched, Other Palpation: Normal Tenderness: Normal Skin: Red, Tender, Wound (RIGHT BUTTOCK ) Musculoskeletal: Normal Psychiatric: Normal Mood Description: Calm Affect: Normal Speech Pattern: Clear, Appropriate - Laboratory and Diagnostics Result Diagrams: 10/25/17 03:55 10/25/17 03:55 Labs: 10/22/17 15:34 Blood Blood Culture - Preliminary 10/22/17 15:25 Blood Blood Culture - Preliminary 10/22/17 15:54 Buttock Gram Stain - Final 10/22/17 15:54 Buttock Wound Culture - Final Methicillin Resis Staph Aureus Laboratory WBC 5.1 X10^3/uL (3.6-10.0) 10/25/17 03:55 RBC 3.80 X10^6/uL (4.7-6.0) L 10/25/17 03:55 Hgb 10.8 g/dL (13.5-18.0) L 10/25/17 03:55 Hct 34.1 % (42.0-54.0) L 10/25/17 03:55 MCV 89.8 fL (80.0-100.0) 10/25/17 03:55 MCH 28.4 pg (27.0-34.0) 10/25/17 03:55 MCHC 31.6 g/dL (33.0-35.0) L 10/25/17 03:55 RDW 15.2 % (11.6-16.5) 10/25/17 03:55 Plt Count 148 X10^3/uL (150.0-450.0) L 10/25/17 03:55 MPV 6.9 fL (7.4-11.0) L 10/25/17 03:55 Neut % 65.8 % (42.0-75.0) 10/25/17 03:55 Lymph % 20.7 % (21.0-51.0) L 10/25/17 03:55 [place] % 5.9 % (0.0-13.0) 10/25/17 03:55 Eos % 7.2 % (0.9-2.9) H 10/25/17 03:55 Baso % 0.4 % (0.2-1.0) 10/25/17 03:55 Neut # 3.3 x10^3/uL (2.2-4.8) 10/25/17 03:55 Lymph # 1.1 X10^3/uL (1.3-2.9) L 10/25/17 03:55 [place] # 0.3 x10^3/uL (0.3-0.8) 10/25/17 03:55 Eos # 0.4 x10^3/uL (0.0-0.2) H 10/25/17 03:55 Baso # 0.0 X10^3/uL (0.0-0.1) 10/25/17 03:55 Absolute Nucleated RBC 0.0 /100WBC 10/25/17 03:55 Sodium 139 mmol/L (136-145) 10/25/17 03:55 Corrected Sodium 141 mmol/L (136-145) 10/25/17 03:55 Potassium 4.3 mmol/L (3.5-5.1) 10/25/17 03:55 Chloride 102 mmol/L (98-107) 10/25/17 03:55 Carbon Dioxide 34.0 mmol/L (21-32) H 10/25/17 03:55 BUN 15 mg/dL (7-18) 10/25/17 03:55 Creatinine 1.19 mg/dL (0.70-1.30) 10/25/17 03:55 Est GFR (MDRD) Af Amer > 60 (>60) 10/25/17 03:55 Est GFR (MDRD) Non-Af > 60 (>60) 10/25/17 03:55 Glucose 190 mg/dL (65-99) H 10/25/17 03:55 POC Glucose (mg/dL) 204 mg/dL (65-99) H 10/25/17 20:02 Calcium 8.2 mg/dL (8.5-10.1) L 10/25/17 03:55 Corrected Calcium 9.2 mg/dL (8.5-10.1) 10/25/17 03:55 Total Bilirubin 0.30 mg/dL (0.2-1.0) 10/25/17 03:55 AST 15 Units/L (15-37) 10/25/17 03:55 ALT 23 Units/L (12-78) 10/25/17 03:55 Alkaline Phosphatase 117 Units/L (46-116) H 10/25/17 03:55 Total Protein 6.3 g/dL (6.4-8.2) L 10/25/17 03:55 Albumin 2.8 g/dL (3.4-5.0) L 10/25/17 03:55 Globulin 3.5 g/dL (2.5-4.5) 10/25/17 03:55 Albumin/Globulin Ratio 0.8 Ratio (1.1-2.1) L 10/25/17 03:55 Vancomycin Trough 13.3 ug/mL (15-20) L 10/24/17 22:35 - Plan (1) Cellulitis of buttock, right Status: Acute Plan: CONTINUE VANCOMYCIN Q12H, CONTINUE LEVAQUIN DAILY, CONTINUE TO MONITOR (2) Infection of wound due to methicillin resistant Staphylococcus aureus (MRSA) Status: Acute Plan: CONTINUE VANCOMYCIN 1GM IV Q12H, CONTINUE WOUND CARE (3) COPD (chronic obstructive pulmonary disease) Status: Chronic Qualifiers: COPD type: unspecified COPD Qualified Code(s): J44.9 - Chronic obstructive pulmonary disease, unspecified Plan: DUONEBS QID PRN, SUPPLEMENTAL OXYGEN, CONTINUE TO MONITOR (4) Diabetes Status: Chronic Qualifiers: Diabetes mellitus type: type 2 Diabetes mellitus complication status: with skin complications Diabetes mellitus complication detail: with dermatitis Diabetes mellitus long-term insulin use: without watermelon inspector use Qualified Code( s): E11.620 - Type 2 diabetes mellitus with diabetic dermatitis Plan: CONTINUE LANTUS, CHECK OTBS, CONTINUE TO MONITOR (5) Essential hypertension Status: Chronic Plan: CONTINUE PROCARDIA, CONTINUE COZAAR, CONTINUE TO MONITOR
[2017-10-25] MEDS: NS 1000 ML 1,000 ML IV SCH (22:13)
--- NOTE | 2017-10-26 00:11 | PCM.PROG ---
Progress Note - Progress Note for Day of Date: 10/25/17 - Subjective Subjective: WAS ADMITTED FOR CELLULITIS TO THE RIGHT BUTTOCK. TODAY, HE IS ALERT AND ORIENTED, LYING IN BED ON MORNING ROUNDS. HE CONTINUES WITH COMPLAINTS OF PAIN TO THE RIGHT BUTTOCK AND RIGHT HIP PAIN. ON EXAMINATION, HEART IS NORMAL IN RATE AND RHYTHM. LUNG SOUNDS ARE DIMINISHED THROUGHOUT. HE IS NOTED TO BE UTILIZING OXYGEN VIA NASAL CANNULA AT 2L/MIN AT THIS TIME. ABDOMEN IS ROUND, SOFT, AND NON-TENDER WITH NORMAL BOWEL SOUNDS NOTED IN ALL QUADRANTS. THERE IS GOOD MOVEMENT NOTED IN ALL EXTREMITIES. WOUND TO RIGHT BUTTOCK NOTED WITH DRESSING. DRESSING IS DRY AND INTACT AT THIS TIME. HIS VITAL SIGNS ARE 98.2-83-20-98%-113/58. HE REMAINS HEMODYNAMICALLY STABLE. HE CONTINUES TO BE ON VANCOMYCIN 1GM IV BID FOR MRSA IN WOUND. IT IS RESISTANT TO LEVAQUIN, THEREFORE, WE WILL DISCONTINUE IT TODAY. WE WILL ADD RIFAMPIN 300MG BID, BACTRIM DS 1 TAB BID, AND GENTAMYCIN OINTMENT TO WOUNDS BID. WE WILL ALSO START TORADOL 30MG IV Q6H PRN FOR PAIN. WE FEEL THAT PATIENT WILL NEED AN EXTENDED COURSE OF IV ANTIBIOTICS AT HOME AFTER DISCHARGE. WE WILL CONSULT FOR PLACEMENT OF A PORT A CATH DUE TO POOR PERIPHERAL ACCESS. OTHERWISE, WE WILL CONTINUE WITH CURRENT PLAN OF CARE TODAY. WE PLAN TO FOLLOW UP WITH AM LABS AND CONTINUE TO MONITOR PATIENT. - Past Medical Family Social History Past Med/Fam/Surg Hx: No changes since H&P Allergies: Allergies No Known Drug Allergies Allergy (Verified 06/28/17 14:35) - Review of Systems ROS: No change since H&P - Vital Signs and I&O's Vital Signs: Temperature 98.1 F Pulse Rate [Left Brachial] 82 Pulse Rate [Radial] 78 Pulse Rate 77 Respiratory Rate 21 Blood Pressure [Right Radial 122/71 Artery] Blood Pressure [Right Arm] 121/60 Blood Pressure [Left Arm] 112/55 Blood Pressure 126/69 O2 Sat by Pulse Oximetry 99 Intake and Output: Intake & Output 10/23/17 10/24/17 10/25/17 10/26/17 11:59 11:59 11:59 11:59 Intake Total 1310 1990 1510 4653 Output Total 200 2200 2600 675 Balance 1110 -210 -1090 3978 - Physical Exam Oriented: Normal Eyes: Normal. negative: Blurred Vision, Diplopia, Discharge, Pain, Redness, Photophobia, Other Ear: Normal. negative: Right, Left, Swelling, Ecchymosis, Hemotypanum, Abrasion , Laceration Nose: Normal. negative: Injected, Discharge, Blood, Other Throat: Normal. negative: Tonsillar Hypertrophy, Red, Exudate, Dry, Other Respiratory: Generalized, Diminished Cardiovascular: Normal, Edema : Normal. negative: Dysuria, Hematuria, Frequency, Discharge, Testicular Pain , Bleeding, , Other Auscultation: Bowel Sounds: Normal. negative: Bruit, Absent, Increased, Decreased, High Pitched, Other Palpation: Normal Tenderness: Normal Skin: Red, Tender, Wound (RIGHT BUTTOCK ) Musculoskeletal: Right, Hip, Tender Psychiatric: Normal Mood Description: Calm Affect: Normal Speech Pattern: Clear, Appropriate - Laboratory and Diagnostics Result Diagrams: 10/25/17 03:55 10/25/17 03:55 Labs: 10/22/17 15:34 Blood Blood Culture - Preliminary 10/22/17 15:25 Blood Blood Culture - Preliminary 10/22/17 15:54 Buttock Gram Stain - Final 10/22/17 15:54 Buttock Wound Culture - Final Methicillin Resis Staph Aureus Laboratory WBC 5.1 X10^3/uL (3.6-10.0) 10/25/17 03:55 RBC 3.80 X10^6/uL (4.7-6.0) L 10/25/17 03:55 Hgb 10.8 g/dL (13.5-18.0) L 10/25/17 03:55 Hct 34.1 % (42.0-54.0) L 10/25/17 03:55 MCV 89.8 fL (80.0-100.0) 10/25/17 03:55 MCH 28.4 pg (27.0-34.0) 10/25/17 03:55 MCHC 31.6 g/dL (33.0-35.0) L 10/25/17 03:55 RDW 15.2 % (11.6-16.5) 10/25/17 03:55 Plt Count 148 X10^3/uL (150.0-450.0) L 10/25/17 03:55 MPV 6.9 fL (7.4-11.0) L 10/25/17 03:55 Neut % 65.8 % (42.0-75.0) 10/25/17 03:55 Lymph % 20.7 % (21.0-51.0) L 10/25/17 03:55 [place] % 5.9 % (0.0-13.0) 10/25/17 03:55 Eos % 7.2 % (0.9-2.9) H 10/25/17 03:55 Baso % 0.4 % (0.2-1.0) 10/25/17 03:55 Neut # 3.3 x10^3/uL (2.2-4.8) 10/25/17 03:55 Lymph # 1.1 X10^3/uL (1.3-2.9) L 10/25/17 03:55 [place] # 0.3 x10^3/uL (0.3-0.8) 10/25/17 03:55 Eos # 0.4 x10^3/uL (0.0-0.2) H 10/25/17 03:55 Baso # 0.0 X10^3/uL (0.0-0.1) 10/25/17 03:55 Absolute Nucleated RBC 0.0 /100WBC 10/25/17 03:55 Sodium 139 mmol/L (136-145) 10/25/17 03:55 Corrected Sodium 141 mmol/L (136-145) 10/25/17 03:55 Potassium 4.3 mmol/L (3.5-5.1) 10/25/17 03:55 Chloride 102 mmol/L (98-107) 10/25/17 03:55 Carbon Dioxide 34.0 mmol/L (21-32) H 10/25/17 03:55 BUN 15 mg/dL (7-18) 10/25/17 03:55 Creatinine 1.19 mg/dL (0.70-1.30) 10/25/17 03:55 Est GFR (MDRD) Af Amer > 60 (>60) 10/25/17 03:55 Est GFR (MDRD) Non-Af > 60 (>60) 10/25/17 03:55 Glucose 190 mg/dL (65-99) H 10/25/17 03:55 POC Glucose (mg/dL) 204 mg/dL (65-99) H 10/25/17 20:02 Calcium 8.2 mg/dL (8.5-10.1) L 10/25/17 03:55 Corrected Calcium 9.2 mg/dL (8.5-10.1) 10/25/17 03:55 Total Bilirubin 0.30 mg/dL (0.2-1.0) 10/25/17 03:55 AST 15 Units/L (15-37) 10/25/17 03:55 ALT 23 Units/L (12-78) 10/25/17 03:55 Alkaline Phosphatase 117 Units/L (46-116) H 10/25/17 03:55 Total Protein 6.3 g/dL (6.4-8.2) L 10/25/17 03:55 Albumin 2.8 g/dL (3.4-5.0) L 10/25/17 03:55 Globulin 3.5 g/dL (2.5-4.5) 10/25/17 03:55 Albumin/Globulin Ratio 0.8 Ratio (1.1-2.1) L 10/25/17 03:55 Vancomycin Trough 13.3 ug/mL (15-20) L 10/24/17 22:35 - Plan (1) Cellulitis of buttock, right Status: Acute Plan: CONTINUE VANCOMYCIN Q12H, RIFAMPIN 300MG PO BID, BACTRIM DS 1 TAB BID, GENTAMYCIN CREAM TO WOUNDS BID, WOUND CARE, CONTINUE TO MONITOR (2) Infection of wound due to methicillin resistant Staphylococcus aureus (MRSA) Status: Acute Plan: CONTINUE VANCOMYCIN Q12H, RIFAMPIN 300MG PO BID, BACTRIM DS 1 TAB BID, GENTAMYCIN CREAM TO WOUNDS BID, WOUND CARE, CONTINUE TO MONITOR (3) COPD (chronic obstructive pulmonary disease) Status: Chronic Qualifiers: COPD type: unspecified COPD Qualified Code(s): J44.9 - Chronic obstructive pulmonary disease, unspecified Plan: DUONEBS QID PRN, SUPPLEMENTAL OXYGEN, CONTINUE TO MONITOR (4) Diabetes Status: Chronic Qualifiers: Diabetes mellitus type: type 2 Diabetes mellitus complication status: with skin complications Diabetes mellitus complication detail: with dermatitis Diabetes mellitus jukebox checker insulin use: without jukebox checker use Qualified Code( s): E11.620 - Type 2 diabetes mellitus with diabetic dermatitis Plan: CONTINUE LANTUS, CHECK OTBS, CONTINUE TO MONITOR (5) Essential hypertension Status: Chronic Plan: CONTINUE PROCARDIA, CONTINUE COZAAR, CONTINUE TO MONITOR
[2017-10-26 04:35] LABS: BASOPHILS % (AUTO) 0.7 % (0.2-1.0); EOSINOPHILS # (AUTO) 0.4 x10^3/uL (0.0-0.2); EOSINOPHILS % (AUTO) 9.9 % (0.9-2.9); HEMATOCRIT 33.4 % (42.0-54.0); HEMOGLOBIN 10.7 g/dL (13.5-18.0); LYMPHOCYTES % (AUTO) 23.3 % (21.0-51.0); MEAN CORPUSCULAR HEMOGLOBIN 28.7 pg (27.0-34.0); MEAN CORPUSCULAR VOLUME 89.7 fL (80.0-100.0); MEAN PLATELET VOLUME 7.2 fL (7.4-11.0); MONOCYTES # (AUTO) 0.3 x10^3/uL (0.3-0.8); MONOCYTES % (AUTO) 6.8 % (0.0-13.0); NEUTROPHILS # (AUTO) 2.6 x10^3/uL (2.2-4.8); NEUTROPHILS % (AUTO) 59.3 % (42.0-75.0); PLATELET COUNT 120 X10^3/uL (150.0-450.0); RED BLOOD COUNT 3.73 X10^6/uL (4.7-6.0); RED CELL DISTRIBUTION WIDTH 14.8 % (11.6-16.5); WHITE BLOOD COUNT 4.4 X10^3/uL (3.6-10.0)
[2017-10-26 04:59] LABS: ALANINE AMINOTRANSFERASE 24 Units/L (12-78); ALBUMIN 2.7 g/dL (3.4-5.0); ALKALINE PHOSPHATASE 112 Units/L (46-116); ASPARTATE AMINO TRANSFERASE 16 Units/L (15-37); BLOOD UREA NITROGEN 14 mg/dL (7-18); CALCIUM 8.1 mg/dL (8.5-10.1); CARBON DIOXIDE 32.3 mmol/L (21-32); CHLORIDE 102 mmol/L (98-107); COR CA(FOR HYPOALB) 9.1 mg/dL (8.5-10.1); COR NA(FOR HYPERGLY) 141 mmol/L (136-145); SODIUM 139 mmol/L (136-145); TOTAL PROTEIN 6.3 g/dL (6.4-8.2); eGFR BLACK RACES > 60 (>60); eGFR NON BLACK RACES > 60 (>60)
[2017-10-26] MEDS: BACTROBAN OINT TOP SCH ×3 (05:06→22:20)
[2017-10-26] MEDS: RIFADIN CAP 300 MG PO SCH (08:40)
[2017-10-26] MEDS: PROCARDIA XL PO SCH (08:40)
[2017-10-26] MEDS: FOLIC ACID TAB 1 MG PO SCH (08:40)
[2017-10-26] MEDS: BACTRIM DS TAB PO SCH (08:40)
[2017-10-26] MEDS: COLACE CAP 100 MG PO SCH (08:40)
[2017-10-26] MEDS: ULTRAM PO PRN ×2 (08:41→23:45)
[2017-10-26] MEDS: COZAAR PO SCH (08:43)
[2017-10-26] MEDS: DUONEB 0.5 MG/3 MG NEB PRN (08:57)
[2017-10-26 10:02] LABS: CREATININE 1.25 mg/dL (0.70-1.30); VANCOMYCIN,TROUGH 17.1 ug/mL (15-20)
[2017-10-26] MEDS: VANCOMYCIN HCL 1 GM VIAL 1 GM in NS 250 ML IV 250 ML IV SCH ×2 (11:10→21:45)
[2017-10-26] MEDS: SNACK - Diabetic Appropriate PO SCH (21:12)
[2017-10-26 21:22] LABS: CREATININE 1.25 mg/dL (0.70-1.30); VANCOMYCIN,TROUGH 16.8 ug/mL (15-20)
[2017-10-26] MEDS: LANTUS SC SCH (21:44)
[2017-10-26] MEDS: NORCO 5/325 MG TAB PO PRN (21:45)
[2017-10-26] MEDS: NS 1000 ML 1,000 ML IV SCH (23:49)
--- NOTE | 2017-10-26 23:56 | PCM.PROG ---
Progress Note - Progress Note for Day of Date: 10/26/17 - Subjective Subjective: WAS ADMITTED FOR CELLULITIS TO THE RIGHT BUTTOCK. TODAY, HE IS ALERT AND ORIENTED, LYING IN BED ON MORNING ROUNDS. HE CONTINUES WITH COMPLAINTS OF PAIN TO THE RIGHT BUTTOCK AND RIGHT HIP PAIN. PATIENT REPORTS THAT PAIN HAS SLIGHTLY IMPROVED SINCE YESTERDAY. ON EXAMINATION, HEART IS NORMAL IN RATE AND RHYTHM. LUNG SOUNDS ARE DIMINISHED THROUGHOUT. HE IS NOTED TO BE UTILIZING OXYGEN VIA NASAL CANNULA AT 2L/MIN AT THIS TIME. ABDOMEN IS ROUND, SOFT, AND NON-TENDER WITH NORMAL BOWEL SOUNDS NOTED IN ALL QUADRANTS. THERE IS GOOD MOVEMENT NOTED IN ALL EXTREMITIES. WOUND TO RIGHT BUTTOCK NOTED WITH DRESSING. DRESSING IS DRY AND INTACT AT THIS TIME. HIS VITAL SIGNS ARE 97.4 -79-20-99%-123/88. HE REMAINS HEMODYNAMICALLY STABLE. HE CONTINUES ON IV ANTIBIOTICS FOR MRSA IN SACRAL WOUNDS. WE HAVE CONSULTED FOR PLACEMENT OF PORT A CATH DUE TO NEED FOR THREAD SPINNER ANTIBIOTIC THERAPY. WE WILL CHANGE GENTAMYCIN OINTMENT TO BACTROBAN OINTMENT TODAY. OTHERWISE, WE WILL CONTINUE WITH CURRENT PLAN OF CARE. WE PLAN TO FOLLOW UP WITH AM LABS AND CONTINUE TO MONITOR PATIENT. - Past Medical Family Social History Past Med/Fam/Surg Hx: No changes since H&P Allergies: Allergies No Known Drug Allergies Allergy (Verified 06/28/17 14:35) - Review of Systems ROS: No change since H&P - Vital Signs and I&O's Vital Signs: Temperature 97.7 F Pulse Rate [Left Brachial] 92 Pulse Rate [Radial] 79 Pulse Rate 78 Respiratory Rate 20 Blood Pressure [Right Radial 122/71 Artery] Blood Pressure [Right Arm] 123/88 Blood Pressure [Left Arm] 114/56 Blood Pressure 126/69 O2 Sat by Pulse Oximetry 97 Intake and Output: Intake & Output 10/24/17 10/25/17 10/26/17 10/27/17 11:59 11:59 11:59 11:59 Intake Total 1989 7830 5473 960 Output Total 0 2600 1675 1550 Balance -210 -1090 1853 -950 - Physical Exam Oriented: Normal Eyes: Normal. negative: Blurred Vision, Diplopia, Discharge, Pain, Redness, Photophobia, Other Ear: Normal. negative: Right, Left, Swelling, Ecchymosis, Hemotypanum, Abrasion , Laceration Nose: Normal. negative: Injected, Discharge, Blood, Other Throat: Normal. negative: Tonsillar Hypertrophy, Red, Exudate, Dry, Other Respiratory: Generalized, Diminished Cardiovascular: Normal, Edema : Normal. negative: Dysuria, Hematuria, Frequency, Discharge, Testicular Pain , Bleeding, , Other Auscultation: Bowel Sounds: Normal. negative: Bruit, Absent, Increased, Decreased, High Pitched, Other Palpation: Normal Tenderness: Normal Skin: Red, Tender, Wound (RIGHT BUTTOCK ) Musculoskeletal: Right, Hip, Tender Psychiatric: Normal Mood Description: Calm Affect: Normal Speech Pattern: Clear, Appropriate - Laboratory and Diagnostics Result Diagrams: 10/26/17 03:30 10/26/17 20:45 Labs: 10/22/17 15:34 Blood Blood Culture - Preliminary 10/22/17 15:25 Blood Blood Culture - Preliminary 10/22/17 15:54 Buttock Gram Stain - Final 10/22/17 15:54 Buttock Wound Culture - Final Methicillin Resis Staph Aureus Laboratory WBC 4.4 X10^3/uL (3.6-10.0) 10/26/17 03:30 RBC 3.73 X10^6/uL (4.7-6.0) L 10/26/17 03:30 Hgb 10.7 g/dL (13.5-18.0) L 10/26/17 03:30 Hct 33.4 % (42.0-54.0) L 10/26/17 03:30 MCV 89.7 fL (80.0-100.0) 10/26/17 03:30 MCH 28.7 pg (27.0-34.0) 10/26/17 03:30 MCHC 32.0 g/dL (33.0-35.0) L 10/26/17 03:30 RDW 14.8 % (11.6-16.5) 10/26/17 03:30 Plt Count 120 X10^3/uL (150.0-450.0) L 10/26/17 03:30 MPV 7.2 fL (7.4-11.0) L 10/26/17 03:30 Neut % 59.3 % (42.0-75.0) 10/26/17 03:30 Lymph % 23.3 % (21.0-51.0) 10/26/17 03:30 [place] % 6.8 % (0.0-13.0) 10/26/17 03:30 Eos % 9.9 % (0.9-2.9) H 10/26/17 03:30 Baso % 0.7 % (0.2-1.0) 10/26/17 03:30 Neut # 2.6 x10^3/uL (2.2-4.8) 10/26/17 03:30 Lymph # 1.0 X10^3/uL (1.3-2.9) L 10/26/17 03:30 [place] # 0.3 x10^3/uL (0.3-0.8) 10/26/17 03:30 Eos # 0.4 x10^3/uL (0.0-0.2) H 10/26/17 03:30 Baso # 0.0 X10^3/uL (0.0-0.1) 10/26/17 03:30 Absolute Nucleated RBC 0.1 /100WBC 10/26/17 03:30 Sodium 139 mmol/L (136-145) 10/26/17 03:30 Corrected Sodium 141 mmol/L (136-145) 10/26/17 03:30 Potassium 4.2 mmol/L (3.5-5.1) 10/26/17 03:30 Chloride 102 mmol/L (98-107) 10/26/17 03:30 Carbon Dioxide 32.3 mmol/L (21-32) H 10/26/17 03:30 BUN 14 mg/dL (7-18) 10/26/17 03:30 Creatinine 1.25 mg/dL (0.70-1.30) 10/26/17 20:45 Est GFR (MDRD) Af Amer > 60 (>60) 10/26/17 03:30 Est GFR (MDRD) Non-Af > 60 (>60) 10/26/17 03:30 Glucose 172 mg/dL (65-99) H 10/26/17 03:30 POC Glucose (mg/dL) 225 mg/dL (65-99) H 10/26/17 19:55 Calcium 8.1 mg/dL (8.5-10.1) L 10/26/17 03:30 Corrected Calcium 9.1 mg/dL (8.5-10.1) 10/26/17 03:30 Total Bilirubin 0.40 mg/dL (0.2-1.0) 10/26/17 03:30 AST 16 Units/L (15-37) 10/26/17 03:30 ALT 24 Units/L (12-78) 10/26/17 03:30 Alkaline Phosphatase 112 Units/L (46-116) 10/26/17 03:30 Total Protein 6.3 g/dL (6.4-8.2) L 10/26/17 03:30 Albumin 2.7 g/dL (3.4-5.0) L 10/26/17 03:30 Globulin 3.6 g/dL (2.5-4.5) 10/26/17 03:30 Albumin/Globulin Ratio 0.8 Ratio (1.1-2.1) L 10/26/17 03:30 Vancomycin Trough 16.8 ug/mL (15-20) 10/26/17 20:45 - Plan (1) Cellulitis of buttock, right Status: Acute Plan: CONTINUE VANCOMYCIN Q12H, BACTROBAN OINTMENT TO WOUNDS TID, WOUND CARE, CONTINUE TO MONITOR (2) Infection of wound due to methicillin resistant Staphylococcus aureus (MRSA) Status: Acute Plan: CONTINUE VANCOMYCIN Q12H, BACTROBAN OINTMENT TO WOUNDS TID, WOUND CARE, CONTINUE TO MONITOR (3) COPD (chronic obstructive pulmonary disease) Status: Chronic Qualifiers: COPD type: unspecified COPD Qualified Code(s): J44.9 - Chronic obstructive pulmonary disease, unspecified Plan: DUONEBS QID PRN, SUPPLEMENTAL OXYGEN, CONTINUE TO MONITOR (4) Diabetes Status: Chronic Qualifiers: Diabetes mellitus type: type 2 Diabetes mellitus complication status: with skin complications Diabetes mellitus complication detail: with dermatitis Diabetes mellitus fdc insulin use: without intermediate frame tender use Qualified Code( s): E11.620 - Type 2 diabetes mellitus with diabetic dermatitis Plan: CONTINUE LANTUS, CHECK OTBS, CONTINUE TO MONITOR (5) Essential hypertension Status: Chronic Plan: CONTINUE PROCARDIA, CONTINUE COZAAR, CONTINUE TO MONITOR
[2017-10-27 05:22] LABS: BASOPHILS % (AUTO) 0.5 % (0.2-1.0); EOSINOPHILS # (AUTO) 0.6 x10^3/uL (0.0-0.2); EOSINOPHILS % (AUTO) 11.7 % (0.9-2.9); HEMATOCRIT 34.1 % (42.0-54.0); HEMOGLOBIN 10.8 g/dL (13.5-18.0); MEAN CORPUSCULAR HEMOGLOBIN 28.3 pg (27.0-34.0); MEAN CORPUSCULAR HGB CONC 31.6 g/dL (33.0-35.0); MEAN CORPUSCULAR VOLUME 89.5 fL (80.0-100.0); MEAN PLATELET VOLUME 6.9 fL (7.4-11.0); MONOCYTES # (AUTO) 0.3 x10^3/uL (0.3-0.8); MONOCYTES % (AUTO) 6.4 % (0.0-13.0); NEUTROPHILS # (AUTO) 2.9 x10^3/uL (2.2-4.8); NEUTROPHILS % (AUTO) 61.4 % (42.0-75.0); PLATELET COUNT 124 X10^3/uL (150.0-450.0); RED CELL DISTRIBUTION WIDTH 15.2 % (11.6-16.5); WHITE BLOOD COUNT 4.8 X10^3/uL (3.6-10.0)
[2017-10-27 05:31] LABS: ALANINE AMINOTRANSFERASE 23 Units/L (12-78); ALBUMIN 2.8 g/dL (3.4-5.0); ALKALINE PHOSPHATASE 116 Units/L (46-116); ASPARTATE AMINO TRANSFERASE 19 Units/L (15-37); BLOOD UREA NITROGEN 12 mg/dL (7-18); CALCIUM 8.1 mg/dL (8.5-10.1); CARBON DIOXIDE 32.5 mmol/L (21-32); CHLORIDE 104 mmol/L (98-107); COR CA(FOR HYPOALB) 9.1 mg/dL (8.5-10.1); COR NA(FOR HYPERGLY) 140 mmol/L (136-145); CREATININE 1.21 mg/dL (0.70-1.30); SODIUM 139 mmol/L (136-145); TOTAL PROTEIN 6.4 g/dL (6.4-8.2); eGFR BLACK RACES > 60 (>60); eGFR NON BLACK RACES > 60 (>60)
[2017-10-27] MEDS: BACTROBAN OINT TOP SCH ×3 (05:34→22:42)
[2017-10-27] MEDS: DUONEB 0.5 MG/3 MG NEB PRN (09:05)
[2017-10-27] MEDS: COLACE CAP 100 MG PO SCH (10:01)
[2017-10-27] MEDS: COZAAR PO SCH (10:01)
[2017-10-27] MEDS: VANCOMYCIN HCL 1 GM VIAL 1 GM in NS 250 ML IV 250 ML IV SCH ×2 (10:02→20:55)
[2017-10-27] MEDS: PROCARDIA XL PO SCH (10:02)
[2017-10-27] MEDS: FOLIC ACID TAB 1 MG PO SCH (10:02)
[2017-10-27] MEDS ORDERED: NS 1/2 1000 ML IV 1,000 ML IV ONE ×2 (10:20)
[2017-10-27] MEDS ORDERED: VERSED ONE (10:32)
[2017-10-27] MEDS ORDERED: XYLOCAINE 1% and EPINEPHRINE 1:100,000 ONE (10:33)
[2017-10-27] MEDS ORDERED: MARCAINE 0.25% INJ ONE (10:34)
[2017-10-27] MEDS ORDERED: FENTANYL INJ 250 mcg ONE (11:13)
[2017-10-27] MEDS ORDERED: NS IRRIGATION 1000 ML 500 ML IR ONE (11:15)
[2017-10-27] MEDS ORDERED: FENTANYL INJ 100 mcg ONE (11:15)
[2017-10-27] MEDS ORDERED: NS 1000 ML 1,000 ML ONE (12:04)
--- NOTE | 2017-10-27 12:31 | OR.GENERIC ---
Post-Op Note Generic - Post-Op Note Operative Report: Procedure Note October 27, 2017 Pre-Operative Diagnosis: 1. Phlebosclerosis. 2. Need for IV antibiotics. Post-Operative Diagnosis: 1. Phlebosclerosis. 2. Need for IV antibiotics. Procedure: Placement of left internal jugular port-a-cath (ultrasound guided). Surgeon: Odilon King MD. Earth Science Professor: Nery Hairston CRNA. Specimens: None. Estimated blood loss: Minimal. Complications: None. Summary: The patient is a 57 year old male who developed phlebosclerosis. Surgery was consulted for port-a-cath placement. The risk and benefits of the procedure including difficulty with anesthesia, bleeding, infection, cava thrombosis, DVT , PE, as well as pneumothorax were discussed with the patient. The patient understood these risks and requested the procedure. On October 27, 2017, the patients left neck and chest were prepped with Chloraprep and draped in the usual sterile fashion. The skin and subcutaneous tissue overlying the left internal jugular vein was anesthetized using local anesthetic. The left internal jugular vein was then cannulated under ultrasound guidance. A wire was placed into the superior vena cava. The location of the wire was verified using fluoroscopy. A site was selected on the left chest for the port-a-cath hub. The skin was anesthetized. The skin was incised sharply. A pocket was made using blunt dissection and electrocautery. The track between the cannulation site and the left chest incision was anesthetized. A skin sam was made at the cannulation site. The subcutaneous tissue was dilated serially using the Seldinger technique. Next, a dilator and sheath were advanced into the left IJ. The wire and dilator were removed. The catheter was advanced through the sheath to the distal superior vena cava. The sheath was peeled away and discarded. The catheter was tunneled to the left chest incision and trimmed to the appropriate length. The catheter along with locking flange was connected to the port-a-cath hub. The hub was sewn to the pectoralis fascia using 2-0 Prolene x 2. The port-a-cath wiliam and flushed well. The tip of the catheter was verified. The dermis at the left chest incision and cannulation site was re-approximated using inverted , interrupted 3-0 Vicryl sutures. The skin edges were closed using a running 4- 0 Monocryl. Mastisol and steri-strips were placed. A sterile dressing was placed. The patient tolerated the procedure well. There were no complications.
[2017-10-27] MEDS: NORCO 5/325 MG TAB PO PRN ×2 (12:45→20:53)
--- NOTE | 2017-10-27 13:21 | RAD ---
Examination: AP chest History: Port-A-Cath Comparison reference 10/22/2017. Findings: Stable heart size with grossly clear lungs. No change in position of the previous right derik ed catheter terminating near the cavoatrial junction. There is a new left IJ injection port which ter minates at the right atrium. No pneumothorax or pleural fluid. Impression: Apparently uncomplicated injection port insertion. Reported By:
[2017-10-27] MEDS: ULTRAM PO PRN (14:35)
[2017-10-27] MEDS: LANTUS SC SCH (20:54)
[2017-10-27] MEDS: SNACK - Diabetic Appropriate PO SCH (20:54)
[2017-10-28] MEDS: NS 1000 ML 1,000 ML IV SCH (00:54)
[2017-10-28] MEDS: NORCO 5/325 MG TAB PO PRN ×2 (01:50→08:28)
[2017-10-28] MEDS: BACTROBAN OINT TOP SCH (05:30)
[2017-10-28] MEDS: ULTRAM PO PRN (05:47)
[2017-10-28 06:17] LABS: BASOPHILS % (AUTO) 0.4 % (0.2-1.0); EOSINOPHILS # (AUTO) 0.5 x10^3/uL (0.0-0.2); EOSINOPHILS % (AUTO) 10.3 % (0.9-2.9); HEMATOCRIT 32.8 % (42.0-54.0); HEMOGLOBIN 10.4 g/dL (13.5-18.0); LYMPHOCYTES # (AUTO) 1.1 X10^3/uL (1.3-2.9); LYMPHOCYTES % (AUTO) 21.2 % (21.0-51.0); MEAN CORPUSCULAR HEMOGLOBIN 28.6 pg (27.0-34.0); MEAN CORPUSCULAR HGB CONC 31.8 g/dL (33.0-35.0); MONOCYTES # (AUTO) 0.4 x10^3/uL (0.3-0.8); NEUTROPHILS # (AUTO) 3.2 x10^3/uL (2.2-4.8); NEUTROPHILS % (AUTO) 61.1 % (42.0-75.0); PLATELET COUNT 117 X10^3/uL (150.0-450.0); RED BLOOD COUNT 3.65 X10^6/uL (4.7-6.0); RED CELL DISTRIBUTION WIDTH 15.1 % (11.6-16.5); WHITE BLOOD COUNT 5.2 X10^3/uL (3.6-10.0)
[2017-10-28 06:28] LABS: ALANINE AMINOTRANSFERASE 23 Units/L (12-78); ALBUMIN 2.8 g/dL (3.4-5.0); ALKALINE PHOSPHATASE 114 Units/L (46-116); ASPARTATE AMINO TRANSFERASE 19 Units/L (15-37); BLOOD UREA NITROGEN 10 mg/dL (7-18); CALCIUM 7.8 mg/dL (8.5-10.1); CARBON DIOXIDE 31.5 mmol/L (21-32); CHLORIDE 105 mmol/L (98-107); COR CA(FOR HYPOALB) 8.8 mg/dL (8.5-10.1); COR NA(FOR HYPERGLY) 142 mmol/L (136-145); CREATININE 1.13 mg/dL (0.70-1.30); SODIUM 140 mmol/L (136-145); TOTAL PROTEIN 6.2 g/dL (6.4-8.2); eGFR BLACK RACES > 60 (>60); eGFR NON BLACK RACES > 60 (>60)
[2017-10-28] MEDS: COZAAR PO SCH (08:27)
[2017-10-28] MEDS: PROCARDIA XL PO SCH (08:28)
[2017-10-28] MEDS: COLACE CAP 100 MG PO SCH (08:28)
[2017-10-28] MEDS: FOLIC ACID TAB 1 MG PO SCH (08:28)
[2017-10-28] MEDS: VANCOMYCIN HCL 1 GM VIAL 1 GM in NS 250 ML IV 250 ML IV SCH (08:29)
[2017-10-28] MEDS: DUONEB 0.5 MG/3 MG NEB PRN (09:27)
[2017-10-28 10:31] VITALS: BP 138/80
--- NOTE | 2017-10-28 11:27 | PCM.PROG ---
Progress Note - Progress Note for Day of Date: 10/27/17 - Subjective Subjective: WAS ADMITTED FOR CELLULITIS TO THE RIGHT BUTTOCK. TODAY, HE IS ALERT AND ORIENTED, LYING IN BED ON MORNING ROUNDS. HE DENIES COMPLAINTS ON MORNING ROUNDS. ON EXAMINATION, HEART IS NORMAL IN RATE AND RHYTHM. LUNG SOUNDS ARE DIMINISHED THROUGHOUT. HE IS NOTED TO BE UTILIZING OXYGEN VIA NASAL CANNULA AT 2L/MIN AT THIS TIME. ABDOMEN IS ROUND, SOFT, AND NON-TENDER WITH NORMAL BOWEL SOUNDS NOTED IN ALL QUADRANTS. THERE IS GOOD MOVEMENT NOTED IN ALL EXTREMITIES. WOUND TO RIGHT BUTTOCK NOTED WITH DRESSING. DRESSING IS DRY AND INTACT AT THIS TIME. HIS VITAL SIGNS ARE 97.9-81-22-98%-109/55. HE REMAINS HEMODYNAMICALLY STABLE. HE CONTINUES ON IV ANTIBIOTICS FOR MRSA IN SACRAL WOUNDS. PLANS TO TAKE PATIENT DOWN TO OR FOR PLACMENT OF A PORT A CATH TODAY. OTHERWISE, WE WILL CONTINUE WITH CURRENT PLAN OF CARE. CASE MANAGEMENT IS ARRANGING FOR IV ANTIBIOTICS AT HOME FOR AFTER PATIENT IS DISCHARGED. WE PLAN TO FOLLOW UP WITH AM LABS AND CONTINUE TO MONITOR PATIENT. - Past Medical Family Social History Past Med/Fam/Surg Hx: No changes since H&P Allergies: Allergies No Known Drug Allergies Allergy (Verified 06/28/17 14:35) - Review of Systems ROS: No change since H&P - Vital Signs and I&O's Vital Signs: Temperature 98.0 F Pulse Rate [Left Brachial] 90 Pulse Rate [Radial] 92 Pulse Rate 84 Respiratory Rate 20 Blood Pressure [Right Radial 122/71 Artery] Blood Pressure [Right Arm] 138/80 Blood Pressure [Left Arm] 109/58 Blood Pressure 126/69 O2 Sat by Pulse Oximetry 98 Intake and Output: Intake & Output 10/25/17 10/26/17 10/27/17 10/28/17 11:59 11:59 11:59 11:59 Intake Total 1510 5473 1680 1180 Output Total 2600 1675 2350 2025 Balance -1090 2265 -062 -404 - Physical Exam Oriented: Normal Eyes: Normal. negative: Blurred Vision, Diplopia, Discharge, Pain, Redness, Photophobia, Other Ear: Normal. negative: Right, Left, Swelling, Ecchymosis, Hemotypanum, Abrasion , Laceration Nose: Normal. negative: Injected, Discharge, Blood, Other Throat: Normal. negative: Tonsillar Hypertrophy, Red, Exudate, Dry, Other Respiratory: Generalized, Diminished Cardiovascular: Normal, Edema : Normal. negative: Dysuria, Hematuria, Frequency, Discharge, Testicular Pain , Bleeding, , Other Auscultation: Bowel Sounds: Normal. negative: Bruit, Absent, Increased, Decreased, High Pitched, Other Palpation: Normal Tenderness: Normal Skin: Red, Tender, Wound (RIGHT BUTTOCK ) Musculoskeletal: Normal Psychiatric: Normal Mood Description: Calm Affect: Normal Speech Pattern: Clear, Appropriate - Laboratory and Diagnostics Result Diagrams: 10/28/17 04:45 10/28/17 04:40 Labs: 10/22/17 15:34 Blood Blood Culture - Final 10/22/17 15:25 Blood Blood Culture - Final 10/22/17 15:54 Buttock Gram Stain - Final 10/22/17 15:54 Buttock Wound Culture - Final Methicillin Resis Staph Aureus Laboratory WBC 5.2 X10^3/uL (3.6-10.0) 10/28/17 04:45 RBC 3.65 X10^6/uL (4.7-6.0) L 10/28/17 04:45 Hgb 10.4 g/dL (13.5-18.0) L 10/28/17 04:45 Hct 32.8 % (42.0-54.0) L 10/28/17 04:45 MCV 90.0 fL (80.0-100.0) 10/28/17 04:45 MCH 28.6 pg (27.0-34.0) 10/28/17 04:45 MCHC 31.8 g/dL (33.0-35.0) L 10/28/17 04:45 RDW 15.1 % (11.6-16.5) 10/28/17 04:45 Plt Count 117 X10^3/uL (150.0-450.0) L 10/28/17 04:45 MPV 7.0 fL (7.4-11.0) L 10/28/17 04:45 Neut % 61.1 % (42.0-75.0) 10/28/17 04:45 Lymph % 21.2 % (21.0-51.0) 10/28/17 04:45 Clinch % 7.0 % (0.0-13.0) 10/28/17 04:45 Eos % 10.3 % (0.9-2.9) H 10/28/17 04:45 Baso % 0.4 % (0.2-1.0) 10/28/17 04:45 Neut # 3.2 x10^3/uL (2.2-4.8) 10/28/17 04:45 Lymph # 1.1 X10^3/uL (1.3-2.9) L 10/28/17 04:45 Clinch # 0.4 x10^3/uL (0.3-0.8) 10/28/17 04:45 Eos # 0.5 x10^3/uL (0.0-0.2) H 10/28/17 04:45 Baso # 0.0 X10^3/uL (0.0-0.1) 10/28/17 04:45 Absolute Nucleated RBC 0.1 /100WBC 10/28/17 04:45 Sodium 140 mmol/L (136-145) 10/28/17 04:40 Corrected Sodium 142 mmol/L (136-145) 10/28/17 04:40 Potassium 4.3 mmol/L (3.5-5.1) 10/28/17 04:40 Chloride 105 mmol/L (98-107) 10/28/17 04:40 Carbon Dioxide 31.5 mmol/L (21-32) 10/28/17 04:40 BUN 10 mg/dL (7-18) 10/28/17 04:40 Creatinine 1.13 mg/dL (0.70-1.30) 10/28/17 04:40 Est GFR (MDRD) Af Amer > 60 (>60) 10/28/17 04:40 Est GFR (MDRD) Non-Af > 60 (>60) 10/28/17 04:40 Glucose 166 mg/dL (65-99) H 10/28/17 04:40 POC Glucose (mg/dL) 165 mg/dL (65-99) H 10/28/17 05:18 Calcium 7.8 mg/dL (8.5-10.1) L 10/28/17 04:40 Corrected Calcium 8.8 mg/dL (8.5-10.1) 10/28/17 04:40 Total Bilirubin 0.20 mg/dL (0.2-1.0) 10/28/17 04:40 AST 19 Units/L (15-37) 10/28/17 04:40 ALT 23 Units/L (12-78) 10/28/17 04:40 Alkaline Phosphatase 114 Units/L (46-116) 10/28/17 04:40 Total Protein 6.2 g/dL (6.4-8.2) L 10/28/17 04:40 Albumin 2.8 g/dL (3.4-5.0) L 10/28/17 04:40 Globulin 3.4 g/dL (2.5-4.5) 10/28/17 04:40 Albumin/Globulin Ratio 0.8 Ratio (1.1-2.1) L 10/28/17 04:40 Vancomycin Trough 16.8 ug/mL (15-20) 10/26/17 20:45 - Plan (1) Cellulitis of buttock, right Status: Acute Plan: CONTINUE VANCOMYCIN Q12H, BACTROBAN OINTMENT TO WOUNDS TID, WOUND CARE, CONTINUE TO MONITOR (2) Infection of wound due to methicillin resistant Staphylococcus aureus (MRSA) Status: Acute Plan: CONTINUE VANCOMYCIN Q12H, BACTROBAN OINTMENT TO WOUNDS TID, WOUND CARE, CONTINUE TO MONITOR (3) COPD (chronic obstructive pulmonary disease) Status: Chronic Qualifiers: COPD type: unspecified COPD Qualified Code(s): J44.9 - Chronic obstructive pulmonary disease, unspecified Plan: DUONEBS QID PRN, SUPPLEMENTAL OXYGEN, CONTINUE TO MONITOR (4) Diabetes Status: Chronic Qualifiers: Diabetes mellitus type: type 2 Diabetes mellitus complication status: with skin complications Diabetes mellitus complication detail: with dermatitis Diabetes mellitus care home insulin use: without care home use Qualified Code( s): E11.620 - Type 2 diabetes mellitus with diabetic dermatitis Plan: CONTINUE LANTUS, CHECK OTBS, CONTINUE TO MONITOR (5) Essential hypertension Status: Chronic Plan: CONTINUE PROCARDIA, CONTINUE COZAAR, CONTINUE TO MONITOR
== END 2017-10-28 14:35 | disposition home health service (06) | DRG 603 ==
LOC: MED/SURG 12:14 → UNDOADMIN 12:14 → MED/SURG 13:01
PROVIDERS: ADMIT Internal Medicine; ATTEND Internal Medicine
PROC: 05HM33Z Insertion of Infusion Device into Right Internal Jugular Vein, Percutaneous Approach (ICD-10-PCS; 2017-10-22)
PROC: B513ZZA Fluoroscopy of Right Jugular Veins, Guidance (ICD-10-PCS; 2017-10-22)
PROC: B548ZZA Ultrasonography of Superior Vena Cava, Guidance (ICD-10-PCS; 2017-10-27)
PROC: 02HV33Z Insertion of Infusion Device into Superior Vena Cava, Percutaneous Approach (ICD-10-PCS; principal; 2017-10-27 14:45)
DX: L03.317 Cellulitis of buttock (principal); L02.31 Cutaneous abscess of buttock; T81.4XXS Infection following a procedure, sequela; E11.65 Type 2 diabetes mellitus with hyperglycemia; E03.8 Other specified hypothyroidism; I10 Essential (primary) hypertension; J44.9 Chronic obstructive pulmonary disease, unspecified; I87.8 Other specified disorders of veins; B95.62 Methicillin resistant Staphylococcus aureus infection as the cause of diseases classified elsewhere; E11.620 Type 2 diabetes mellitus with diabetic dermatitis; R26.89 Other abnormalities of gait and mobility
CPT/HCPCS: 36415; 36556; 71010; 76000; 80053; 80202; 82565; 85025; 87040; 87070; 87075; 87077; 87186; 87205; 94640; 94760; 97535; A4216; A4222; S0020; J1815; J1956; J2001; J2250; J3010; J3370; J7620

== ENCOUNTER 2018-04-21 13:23 | Observation (INO) ==
[2018-04-25] MEDS ORDERED: PHARMACY CONSULT - DOSE _____ XX SCH (15:59)
[2018-04-25] MEDS ORDERED: PHARMACY CONSULT - VANCOMYCIN XX SCH (15:59)
[2018-04-25 17:31] LABS: BASOPHILS % (AUTO) 0.6 % (0.2-1.0); EOSINOPHILS # (AUTO) 0.6 x10^3/uL (0.0-0.2); EOSINOPHILS % (AUTO) 8.7 % (0.9-2.9); HEMOGLOBIN 12.8 g/dL (13.5-18.0); LYMPHOCYTES % (AUTO) 14.7 % (21.0-51.0); MEAN CORPUSCULAR HEMOGLOBIN 27.3 pg (27.0-34.0); MEAN CORPUSCULAR VOLUME 85.4 fL (80.0-100.0); MEAN PLATELET VOLUME 6.6 fL (7.4-11.0); MONOCYTES # (AUTO) 0.4 x10^3/uL (0.3-0.8); MONOCYTES % (AUTO) 5.6 % (0.0-13.0); NEUTROPHILS # (AUTO) 4.7 x10^3/uL (2.2-4.8); NEUTROPHILS % (AUTO) 70.4 % (42.0-75.0); PLATELET COUNT 224 X10^3/uL (150.0-450.0); RED BLOOD COUNT 4.68 X10^6/uL (4.7-6.0); RED CELL DISTRIBUTION WIDTH 16.3 % (11.6-16.5); WHITE BLOOD COUNT 6.6 X10^3/uL (3.6-10.0)
[2018-04-25 17:49] LABS: ALANINE AMINOTRANSFERASE 29 Units/L (12-78); ALBUMIN 3.4 g/dL (3.4-5.0); ALKALINE PHOSPHATASE 124 Units/L (46-116); ASPARTATE AMINO TRANSFERASE 20 Units/L (15-37); BLOOD UREA NITROGEN 17 mg/dL (7-18); CALCIUM 9.2 mg/dL (8.5-10.1); CARBON DIOXIDE 34.3 mmol/L (21-32); CHLORIDE 99 mmol/L (98-107); COR NA(FOR HYPERGLY) 138 mmol/L (136-145); CREATININE 1.51 mg/dL (0.70-1.30); SODIUM 137 mmol/L (136-145); TOTAL PROTEIN 7.8 g/dL (6.4-8.2); eGFR NON BLACK RACES 51 (>60)
[2018-04-25] MEDS ORDERED: HumuLIN R SUBCUT PRN (21:07)
[2018-04-25] MEDS ORDERED: NS 250 ML IV 250 ML IV ONE (21:13)
[2018-04-25] MEDS: VANCOMYCIN 1 GRAM PREMIX (ADDVANTAGE) 250 ML IV SCH (21:14)
[2018-04-25] MEDS: NORCO 10/325 TAB PO PRN (21:15)
[2018-04-25] MEDS: ZOSYN VIAL 4.5 GRAMS 4.5 G in NS 100 ML IV + SPIKE MINIBAG* 100 ML IV SCH (21:15)
[2018-04-26] MEDS: NORCO 10/325 TAB PO PRN ×4 (03:36→21:56)
[2018-04-26] MEDS: ZOSYN VIAL 4.5 GRAMS 4.5 G in NS 100 ML IV + SPIKE MINIBAG* 100 ML IV SCH ×3 (05:37→21:53)
[2018-04-26] MEDS: VANCOMYCIN 1 GRAM PREMIX (ADDVANTAGE) 250 ML IV SCH ×3 (05:38→21:51)
[2018-04-26 06:50] LABS: BASOPHILS % (AUTO) 0.6 % (0.2-1.0); EOSINOPHILS # (AUTO) 0.6 x10^3/uL (0.0-0.2); EOSINOPHILS % (AUTO) 11.3 % (0.9-2.9); HEMATOCRIT 36.4 % (42.0-54.0); HEMOGLOBIN 11.9 g/dL (13.5-18.0); LYMPHOCYTES # (AUTO) 1.2 X10^3/uL (1.3-2.9); LYMPHOCYTES % (AUTO) 23.6 % (21.0-51.0); MEAN CORPUSCULAR HEMOGLOBIN 27.9 pg (27.0-34.0); MEAN CORPUSCULAR HGB CONC 32.6 g/dL (33.0-35.0); MEAN CORPUSCULAR VOLUME 85.7 fL (80.0-100.0); MEAN PLATELET VOLUME 6.7 fL (7.4-11.0); MONOCYTES # (AUTO) 0.4 x10^3/uL (0.3-0.8); MONOCYTES % (AUTO) 8.6 % (0.0-13.0); NEUTROPHILS # (AUTO) 2.8 x10^3/uL (2.2-4.8); NEUTROPHILS % (AUTO) 55.9 % (42.0-75.0); PLATELET COUNT 152 X10^3/uL (150.0-450.0); RED BLOOD COUNT 4.25 X10^6/uL (4.7-6.0); RED CELL DISTRIBUTION WIDTH 16.8 % (11.6-16.5)
[2018-04-26 07:16] LABS: ALANINE AMINOTRANSFERASE 25 Units/L (12-78); ALBUMIN 2.9 g/dL (3.4-5.0); ALKALINE PHOSPHATASE 106 Units/L (46-116); ASPARTATE AMINO TRANSFERASE 21 Units/L (15-37); BLOOD UREA NITROGEN 15 mg/dL (7-18); CALCIUM 8.4 mg/dL (8.5-10.1); CARBON DIOXIDE 31.4 mmol/L (21-32); CHLORIDE 103 mmol/L (98-107); COR CA(FOR HYPOALB) 9.3 mg/dL (8.5-10.1); COR NA(FOR HYPERGLY) 140 mmol/L (136-145); CREATININE 1.52 mg/dL (0.70-1.30); SODIUM 140 mmol/L (136-145); TOTAL PROTEIN 6.7 g/dL (6.4-8.2); eGFR NON BLACK RACES 50 (>60)
[2018-04-26] MEDS ORDERED: ULTRAM PO PRN (11:22)
[2018-04-26] MEDS ORDERED: LASIX PO PRN (11:22)
[2018-04-26] MEDS ORDERED: NIFEDIPINE 30 MG PO SCH (11:30)
[2018-04-26] MEDS ORDERED: LOSARTAN 100 MG PO SCH (11:30)
[2018-04-26] MEDS: DUONEB 0.5 MG/3 MG NEB SCH ×2 (11:31→21:54)
[2018-04-26] MEDS ORDERED: PROVENTIL NEB TX 0.083% 2.5MG/ 3ML NEB PRN (11:34)
[2018-04-26] MEDS ORDERED: NIFEDIPINE CAP 10 MG PO SCH (12:00)
[2018-04-26] MEDS: COZAAR PO SCH (13:47)
[2018-04-26] MEDS: ASPIRIN EC 81 MG PO SCH (13:48)
[2018-04-26] MEDS: FOLIC ACID TAB 1 MG PO SCH (13:48)
[2018-04-26] MEDS: ELIQUIS PO SCH ×2 (13:48→21:54)
[2018-04-26] MEDS: EMPAGLIFLOZIN PO SCH (13:52)
[2018-04-26] MEDS: PROCARDIA XL PO SCH (14:03)
[2018-04-26] MEDS: JANUVIA PO SCH (14:03)
--- NOTE | 2018-04-26 15:11 | DR.H&P ---
H&P - History & Physical for Day of: H&P Date: 04/25/18 - Chief Complaint Chief Complaint: INFECTED DECUBITUS ULCERS - History of Present Illness History of Present Illness: IS A 58 YEAR OLD PATIENT OF OURS WHO PRESENTED TO THE HOSPITAL A DIRECT ADMISSION. HOME HEALTH NURSES FROM [facility] REPORT THAT PATIENT HAS A NON-HEALING, INFECTED DECUBITUS ULCER TO THE BUTTOCKS. THEY REPORT TREATING THE WOUND WITH TWO DIFFERENT ANTIBIOTIC CREAMS OVER THE PAST TWO WEEKS WITH NO IMPROVEMENT IN WOUND. WOUND TO RIGHT LOWER BUTTOCK MEASURES APPROXIMATELY [id number]. UNDERMINING NOTED TO RIGHT SIDE OF WOUND. WOUND BED BRIGHT RED IN COLOR. THERE IS MINIMAL AMOUNT OF SEROUS DRAINAGE NOTED. SURROUNDING TISSUE IS BRIGHT RED IN COLOR. WOUND TO RIGHT UPPER BUTTOCK MEASURES [id number]. WOUND BED IS BRIGHT RED IN COLOR. THERE IS A MINIMAL AMOUNT OF SEROUS DRAINAGE NOTED. SURROUNDING TISSUE IS BRIGHT RED IN COLOR. PATIENT ALSO HAS MULTIPLE WOUNDS TO BACK OF RIGHT THIGH. ON ADMISSION, VITLAS WERE 98.4, 99, 22, 95% RA, 135/86. LABS WERE OBTAINED. ABNORMAL LAB VALUES INCLUDE THE FOLLOWING: RBC 4.68, Hgb 12.8, Hct 40.0, MCHC 32.0, MPV 6.6, Carbon Dioxide 1.51, GFR non 51, Glucose 140, Alk Phos 124, A/G Ratio 0.8. WOUND CULTURES WERE OBTAINED AND ARE PENDING. HE WAS STARTED ON ZOSYN AND VANCOMYCIN IV. WE WILL CONTINUE WITH WOUND CARE , FOLLOW UP WITH AM LABS, AND CONTINUE TO MONITOR PATIENT. - Past Medical History Past Medical History: Arthritis, Asthma, CHF, COPD, Diabetes, Gout, Headaches, Hypertension, Kidney Stones Additional Medical History: Cataracts, Glaucoma, Ear Infections, Pneumonia, Pulmonary Edema, Gout, Back Pain, Skin Cancer - Past Surgical History Surgical History: Appendectomy, Ortho Surgery Additional Surgical History: Cataract Surgery, Left Ankle - Family History Family Medical History: Diabetes Mellitus, [place], Sudden Cardiac , Hypertension - Social History Does patient currently use any type of tobacco product: No Have you used tobacco products in the last 12 months: No Type of Tobacco Use: None Does any household member use tobacco: No Alcohol Use: None Drug Use: None - Medications Home Medications: No Known Drug Allergies Allergy (Verified 06/28/17 14:35) CONTINUE taking the following medications empagliflozin [Jardiance] 1 tab PO DAILY 04/25/18 [History] furosemide 1 tab PO BID PRN 04/25/18 [History] hydrocodone-acetaminophen 1 tab PO Q4H PRN 04/25/18 [History] ipratropium-albuterol 1 ea NEB BID 04/25/18 [History] sitagliptin [Januvia] 1 tab PO DAILY 04/25/18 [History] - Review of Systems Constitutional: See HPI, Fever, Weakness Eyes: No Symptoms Reported ENT: No Symptoms Reported Respiratory: Shortness of Breath. denies: Sputum, Wheezing Cardiovascular: No Symptoms Reported Gastrointestinal: No Symptoms Reported Genitourinary: No Symptoms Reported Musculoskeletal: Back Pain Skin: See HPI, Wound - Physical Exam Vital Signs: Temperature 97.9 F Pulse Rate [Right Brachial] 76 Pulse Rate [Left Brachial] 84 Pulse Rate 71 Respiratory Rate 20 Blood Pressure [Right Radial 122/71 Artery] Blood Pressure [Right Arm] 146/69 Blood Pressure [Left Arm] 121/67 Blood Pressure 138/80 O2 Sat by Pulse Oximetry 95 Oriented: Normal Eyes: Normal Ear: Normal Nose: Normal Throat: Normal Respiratory: Diminished Throughout Cardiovascular: Normal : Normal Auscultation: Bowel Sounds: Normal Tenderness: Normal Skin: Red, Tender, Wound Musculoskeletal: Normal Psychiatric: Normal Mood Description: Calm Affect: Normal Speech Pattern: Clear - Assessment/Plan (1) Decubitus ulcer of buttock Qualifiers: Pressure ulcer stage: unspecified pressure ulcer stage Laterality: right Qualified Code(s): L89.319 - Pressure ulcer of right buttock, unspecified stage Status: Acute Plan: WOUND CARE, ZOSYN IV, VANCOMYCIN IV, WOUND CULTURES, CONTINUE TO MONITOR (2) Cellulitis of buttock, right Status: Acute - Allergies Allergies/Adverse Reactions: Allergies Allergy/AdvReac Type Severity Reaction Status Date / Time No Known Drug Allergies Allergy Verified 06/28/17 14:35
[2018-04-26 21:30] LABS: CREATININE 1.59 mg/dL (0.70-1.30)
[2018-04-26] MEDS: COLACE CAP 100 MG PO SCH (21:55)
[2018-04-26] MEDS: SNACK - Diabetic Appropriate PO SCH (22:00)
[2018-04-27] MEDS: VANCOMYCIN 1 GRAM PREMIX (ADDVANTAGE) 250 ML IV SCH ×3 (05:02→22:02)
[2018-04-27] MEDS: ZOSYN VIAL 4.5 GRAMS 4.5 G in NS 100 ML IV + SPIKE MINIBAG* 100 ML IV SCH (05:02)
[2018-04-27 05:55] LABS: BASOPHILS % (AUTO) 0.9 % (0.2-1.0); EOSINOPHILS # (AUTO) 0.5 x10^3/uL (0.0-0.2); EOSINOPHILS % (AUTO) 12.4 % (0.9-2.9); HEMATOCRIT 35.7 % (42.0-54.0); HEMOGLOBIN 11.5 g/dL (13.5-18.0); LYMPHOCYTES # (AUTO) 1.1 X10^3/uL (1.3-2.9); LYMPHOCYTES % (AUTO) 24.8 % (21.0-51.0); MEAN CORPUSCULAR HGB CONC 32.2 g/dL (33.0-35.0); MEAN PLATELET VOLUME 6.3 fL (7.4-11.0); MONOCYTES # (AUTO) 0.4 x10^3/uL (0.3-0.8); MONOCYTES % (AUTO) 8.5 % (0.0-13.0); NEUTROPHILS # (AUTO) 2.3 x10^3/uL (2.2-4.8); NEUTROPHILS % (AUTO) 53.4 % (42.0-75.0); PLATELET COUNT 162 X10^3/uL (150.0-450.0); RED BLOOD COUNT 4.11 X10^6/uL (4.7-6.0); WHITE BLOOD COUNT 4.3 X10^3/uL (3.6-10.0)
[2018-04-27 06:12] LABS: ALANINE AMINOTRANSFERASE 26 Units/L (12-78); ALBUMIN 2.6 g/dL (3.4-5.0); ALKALINE PHOSPHATASE 96 Units/L (46-116); ASPARTATE AMINO TRANSFERASE 22 Units/L (15-37); BLOOD UREA NITROGEN 12 mg/dL (7-18); CALCIUM 7.8 mg/dL (8.5-10.1); CARBON DIOXIDE 31.5 mmol/L (21-32); CHLORIDE 107 mmol/L (98-107); COR CA(FOR HYPOALB) 8.9 mg/dL (8.5-10.1); COR NA(FOR HYPERGLY) 144 mmol/L (136-145); CREATININE 1.47 mg/dL (0.70-1.30); SODIUM 143 mmol/L (136-145); TOTAL PROTEIN 6.2 g/dL (6.4-8.2); eGFR NON BLACK RACES 52 (>60)
[2018-04-27 07:14] VITALS: BMI 51.3
--- NOTE | 2018-04-27 08:16 | PCM.PROG ---
Progress Note - Progress Note for Day of Date: 04/26/18 - Subjective Subjective: WAS ADMITTED FOR NON-HEALING DECUBITUS ULCERS. TODAY, HE IS ALERT AND ORIENTED, LYING IN BED ON MORNING ROUNDS. HE COMPLAINS OF GENERALIZED WEAKNESS AND SHORTNESS OF BREATH THIS MORNING. ON EXAMINATION, HEART IS REGULAR IN RATE AND RHYTHM. BILATERAL LUNGS ARE NOTED WITH DIMINISHED LUNG SOUNDS THROUGHOUT. ABDOMEN IS ROUND, SOFT, AND NON-TENDER WITH NORMAL BOWEL SOUNDS NOTED IN ALL QUADRANTS. WOUNDS TO BUTTOCK AND RIGHT THIGH ARE NOTED WITH DRESSINGS. DRESSINGS ARE DRY AND INTACT AT THIS TIME. HIS VITALS THIS MORNING ARE 97.8-92-22-93%-145/68. LABS WERE OBTAINED. ABNORMAL LAB VALUES INCLUDE THE FOLLOWING: RBC 4.25, HGB 11.9, HCT 36.4, CREATININE 1.52, GLUCOSE 120, CALCIUM 8.4, ALBUMIN 2.9. WOUND CULTURES ARE PENDING. HE IS CURRENTLY RECEIVING VANCOMYCIN IV AND ZOSYN IV. WE WILL CONTINUE WITH CURRENT PLAN OF CARE AND WOUND CARE TODAY. OTHERWISE, WE PLAN TO FOLLOW UP WITH AM LABS AND CONTINUE TO MONITOR PATIENT. - Past Medical Family Social History Past Med/Fam/Surg Hx: No changes since H&P Allergies: Allergies No Known Drug Allergies Allergy (Verified 06/28/17 14:35) - Review of Systems ROS: No change since H&P - Vital Signs and I&O's Vital Signs: Temperature 98.5 F Pulse Rate [Right Brachial] 78 Pulse Rate [Left Brachial] 84 Pulse Rate 89 Respiratory Rate 20 Blood Pressure [Right Radial 122/71 Artery] Blood Pressure [Right Arm] 125/64 Blood Pressure [Left Arm] 121/67 Blood Pressure 138/80 O2 Sat by Pulse Oximetry 97 Intake and Output: Intake & Output 04/24/18 04/25/18 04/26/18 04/27/18 11:59 11:59 11:59 11:59 Intake Total 1040 / 1040 3301 / 3301 Output Total 750 / 750 2350 / 2350 Balance 290 / 290 951 / 951 - Physical Exam Oriented: Normal Eyes: Normal Ear: Normal Nose: Normal Throat: Normal Respiratory: Generalized, Diminished Cardiovascular: Normal : Normal Auscultation: Bowel Sounds: Normal Palpation: Normal Tenderness: Normal Skin: Red, Tender, Wound Musculoskeletal: Normal Psychiatric: Normal Mood Description: Calm Affect: Normal Speech Pattern: Clear, Appropriate - Laboratory and Diagnostics Result Diagrams: 04/27/18 05:40 04/27/18 05:40 Labs: 04/25/18 16:50 Blood Blood Culture - Preliminary 04/25/18 17:00 Blood Blood Culture - Preliminary 04/25/18 17:42 Buttock Gram Stain - Final 04/25/18 17:42 Buttock Wound Culture - Final Staphylococcus Aureus Pseudomonas Aeruginosa 04/25/18 17:42 Thigh - Left Gram Stain - Final 04/25/18 17:42 Thigh - Left Wound Culture - Preliminary Staphylococcus Aureus 04/25/18 17:42 Buttock Gram Stain - Final 04/25/18 17:42 Buttock Wound Culture - Preliminary Staphylococcus Aureus Laboratory WBC 4.3 X10^3/uL (3.6-10.0) 04/27/18 05:40 RBC 4.11 X10^6/uL (4.7-6.0) L 04/27/18 05:40 Hgb 11.5 g/dL (13.5-18.0) L 04/27/18 05:40 Hct 35.7 % (42.0-54.0) L 04/27/18 05:40 MCV 87.0 fL (80.0-100.0) 04/27/18 05:40 MCH 28.0 pg (27.0-34.0) 04/27/18 05:40 MCHC 32.2 g/dL (33.0-35.0) L 04/27/18 05:40 RDW 16.0 % (11.6-16.5) 04/27/18 05:40 Plt Count 162 X10^3/uL (150.0-450.0) 04/27/18 05:40 MPV 6.3 fL (7.4-11.0) L 04/27/18 05:40 Neut % (Auto) 53.4 % (42.0-75.0) 04/27/18 05:40 Lymph % (Auto) 24.8 % (21.0-51.0) 04/27/18 05:40 [place] % (Auto) 8.5 % (0.0-13.0) 04/27/18 05:40 Eos % (Auto) 12.4 % (0.9-2.9) H 04/27/18 05:40 Baso % (Auto) 0.9 % (0.2-1.0) 04/27/18 05:40 Neut # (Auto) 2.3 x10^3/uL (2.2-4.8) 04/27/18 05:40 Lymph # (Auto) 1.1 X10^3/uL (1.3-2.9) L 04/27/18 05:40 Dare # (Auto) 0.4 x10^3/uL (0.3-0.8) 04/27/18 05:40 Eos # (Auto) 0.5 x10^3/uL (0.0-0.2) H 04/27/18 05:40 Baso # (Auto) 0.0 X10^3/uL (0.0-0.1) 04/27/18 05:40 Absolute Nucleated RBC 0.1 /100WBC 04/27/18 05:40 Sodium 143 mmol/L (136-145) 04/27/18 05:40 Corrected Sodium 144 mmol/L (136-145) 04/27/18 05:40 Potassium 4.2 mmol/L (3.5-5.1) 04/27/18 05:40 Chloride 107 mmol/L (98-107) 04/27/18 05:40 Carbon Dioxide 31.5 mmol/L (21-32) 04/27/18 05:40 BUN 12 mg/dL (7-18) 04/27/18 05:40 Creatinine 1.47 mg/dL (0.70-1.30) H 04/27/18 05:40 Est GFR (MDRD) Af Amer > 60 (>60) 04/27/18 05:40 Est GFR (MDRD) Non-Af 52 (>60) L 04/27/18 05:40 Glucose 132 mg/dL (65-99) H 04/27/18 05:40 POC Glucose (mg/dL) 129 mg/dL (65-99) H 04/27/18 05:34 Calcium 7.8 mg/dL (8.5-10.1) L 04/27/18 05:40 Corrected Calcium 8.9 mg/dL (8.5-10.1) 04/27/18 05:40 Total Bilirubin 0.20 mg/dL (0.2-1.0) 04/27/18 05:40 AST 22 Units/L (15-37) 04/27/18 05:40 ALT 26 Units/L (12-78) 04/27/18 05:40 Alkaline Phosphatase 96 Units/L (46-116) 04/27/18 05:40 Total Protein 6.2 g/dL (6.4-8.2) L 04/27/18 05:40 Albumin 2.6 g/dL (3.4-5.0) L 04/27/18 05:40 Globulin 3.6 g/dL (2.5-4.5) 04/27/18 05:40 Albumin/Globulin Ratio 0.7 Ratio (1.1-2.1) L 04/27/18 05:40 Vancomycin Trough 16.0 ug/mL (15-20) 04/26/18 21:05 - Plan (1) Decubitus ulcer of buttock Status: Acute Qualifiers: Pressure ulcer stage: unspecified pressure ulcer stage Laterality: right Qualified Code(s): L89.319 - Pressure ulcer of right buttock, unspecified stage Plan: WOUND CARE, ZOSYN IV, VANCOMYCIN IV, WOUND CULTURES, CONTINUE TO MONITOR (2) Cellulitis of buttock, right Status: Acute (3) Shortness of breath Status: Acute Plan: DUONEBS BID, CONTINUE TO MONITOR (4) Diabetes Status: Chronic Qualifiers: Diabetes mellitus type: type 2 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
[2018-04-27] MEDS: DUONEB 0.5 MG/3 MG NEB SCH ×2 (09:18→22:02)
[2018-04-27] MEDS: LEVAQUIN PREMIX IV 500 MG 500 MG/100 ML BAG IV SCH (09:35)
[2018-04-27] MEDS: JANUVIA PO SCH (09:36)
[2018-04-27] MEDS: FOLIC ACID TAB 1 MG PO SCH (09:36)
[2018-04-27] MEDS: ELIQUIS PO SCH ×2 (09:36→21:41)
[2018-04-27] MEDS: ASPIRIN EC 81 MG PO SCH (09:36)
[2018-04-27] MEDS: COZAAR PO SCH (09:36)
[2018-04-27] MEDS: PROCARDIA XL PO SCH (09:36)
[2018-04-27] MEDS: EMPAGLIFLOZIN PO SCH ×2 (09:57→10:02)
[2018-04-27] MEDS: NORCO 10/325 TAB PO PRN (18:31)
[2018-04-27] MEDS: SNACK - Diabetic Appropriate PO SCH (20:00)
[2018-04-27] MEDS ORDERED: NS 500 ML IV 500 ML IV ONE (21:34)
[2018-04-27] MEDS: COLACE CAP 100 MG PO SCH (21:41)
[2018-04-27 21:54] LABS: CREATININE 1.51 mg/dL (0.70-1.30)
[2018-04-27 21:56] LABS: VANCOMYCIN,TROUGH 23.7 ug/mL (15-20)
[2018-04-28] MEDS: NORCO 10/325 TAB PO PRN ×3 (02:00→15:00)
[2018-04-28 05:25] LABS: BASOPHILS % (AUTO) 0.4 % (0.2-1.0); EOSINOPHILS # (AUTO) 0.6 x10^3/uL (0.0-0.2); EOSINOPHILS % (AUTO) 12.1 % (0.9-2.9); HEMATOCRIT 36.7 % (42.0-54.0); HEMOGLOBIN 11.7 g/dL (13.5-18.0); LYMPHOCYTES # (AUTO) 0.9 X10^3/uL (1.3-2.9); LYMPHOCYTES % (AUTO) 19.1 % (21.0-51.0); MEAN CORPUSCULAR HEMOGLOBIN 27.8 pg (27.0-34.0); MEAN CORPUSCULAR HGB CONC 31.8 g/dL (33.0-35.0); MEAN CORPUSCULAR VOLUME 87.5 fL (80.0-100.0); MEAN PLATELET VOLUME 6.6 fL (7.4-11.0); MONOCYTES # (AUTO) 0.3 x10^3/uL (0.3-0.8); MONOCYTES % (AUTO) 6.5 % (0.0-13.0); NEUTROPHILS % (AUTO) 61.9 % (42.0-75.0); PLATELET COUNT 169 X10^3/uL (150.0-450.0); RED BLOOD COUNT 4.19 X10^6/uL (4.7-6.0); RED CELL DISTRIBUTION WIDTH 16.3 % (11.6-16.5); WHITE BLOOD COUNT 4.8 X10^3/uL (3.6-10.0)
[2018-04-28 05:38] LABS: ALANINE AMINOTRANSFERASE 31 Units/L (12-78); ALBUMIN 2.7 g/dL (3.4-5.0); ALKALINE PHOSPHATASE 102 Units/L (46-116); ASPARTATE AMINO TRANSFERASE 20 Units/L (15-37); BLOOD UREA NITROGEN 7 mg/dL (7-18); CALCIUM 8.4 mg/dL (8.5-10.1); CARBON DIOXIDE 31.7 mmol/L (21-32); CHLORIDE 107 mmol/L (98-107); COR CA(FOR HYPOALB) 9.4 mg/dL (8.5-10.1); COR NA(FOR HYPERGLY) 142 mmol/L (136-145); CREATININE 1.34 mg/dL (0.70-1.30); SODIUM 142 mmol/L (136-145); TOTAL PROTEIN 6.5 g/dL (6.4-8.2); eGFR NON BLACK RACES 58 (>60)
--- NOTE | 2018-04-28 08:21 | PCM.PROG ---
Progress Note - Progress Note for Day of Date: 04/27/18 - Subjective Subjective: WAS ADMITTED FOR NON-HEALING DECUBITUS ULCERS. TODAY, HE IS ALERT AND ORIENTED, LYING IN BED ON MORNING ROUNDS. HE COMPLAINS OF GENERALIZED WEAKNESS AND SHORTNESS OF BREATH THIS MORNING. ON EXAMINATION, HEART IS REGULAR IN RATE AND RHYTHM. BILATERAL LUNGS ARE NOTED WITH DIMINISHED LUNG SOUNDS THROUGHOUT. ABDOMEN IS ROUND, SOFT, AND NON-TENDER WITH NORMAL BOWEL SOUNDS NOTED IN ALL QUADRANTS. WOUNDS TO BUTTOCK AND RIGHT THIGH ARE NOTED WITH DRESSINGS. DRESSINGS ARE DRY AND INTACT AT THIS TIME. HIS VITALS THIS MORNING ARE 98.6-82-16-97%-123/61. LABS WERE OBTAINED. ABNORMAL LAB VALUES INCLUDE THE FOLLOWING: RBC 4.11, HGB 11.7, HCT 36.7, CREATININE 1.47, GLUCOSE 132, CALCIUM 7.8, TOTAL PROTEIN 6.2, ALBUMIN 2.6. WOUND CULTURES REPORT GROWTH OF STAPYLOCOCCUS AUREUS AND PSEUDOMONAS AERUGINOSA IN WOUNDS. HE IS CURRENTLY RECEIVING VANCOMYCIN IV AND ZOSYN IV. WE WILL DISCONTINUE THE ZOSYN AND START LEVAQUIN IV DAILY. OTHERWISE, WE WILL CONTINUE WITH CURRENT PLAN OF CARE. WE PLAN TO FOLLOW UP WITH AM LABS AND CONTINUE TO MONITOR PATIENT. - Past Medical Family Social History Past Med/Fam/Surg Hx: No changes since H&P Allergies: Allergies No Known Drug Allergies Allergy (Verified 06/28/17 14:35) - Review of Systems ROS: No change since H&P - Vital Signs and I&O's Vital Signs: Temperature 98.0 F Pulse Rate [Right Brachial] 78 Pulse Rate [Left Brachial] 84 Pulse Rate 87 Respiratory Rate 20 Blood Pressure [Right Radial 122/71 Artery] Blood Pressure [Right Arm] 124/62 Blood Pressure [Left Arm] 121/67 Blood Pressure 138/80 O2 Sat by Pulse Oximetry 97 Intake and Output: Intake & Output 04/25/18 04/26/18 04/27/18 04/28/18 11:59 11:59 11:59 11:59 Intake Total 1040 / 1040 3301 / 3301 2280 / 2280 Output Total 750 / 750 2350 / 2350 2250 / 2250 Balance 290 / 290 951 / 951 30 / 30 - Physical Exam Oriented: Normal Eyes: Normal Ear: Normal Nose: Normal Throat: Normal Respiratory: Generalized, Diminished Cardiovascular: Normal : Normal Auscultation: Bowel Sounds: Normal Palpation: Normal Tenderness: Normal Skin: Red, Tender, Wound Musculoskeletal: Normal Psychiatric: Normal Mood Description: Calm Affect: Normal Speech Pattern: Clear, Appropriate - Laboratory and Diagnostics Result Diagrams: 04/28/18 04:52 04/28/18 04:52 Labs: 04/25/18 17:42 Thigh - Left Gram Stain - Final 04/25/18 17:42 Thigh - Left Wound Culture - Final Staphylococcus Aureus Escherichia Coli Pseudomonas Aeruginosa 04/25/18 17:42 Buttock Gram Stain - Final 04/25/18 17:42 Buttock Wound Culture - Final Staphylococcus Aureus Pseudomonas Aeruginosa 04/25/18 16:50 Blood Blood Culture - Preliminary 04/25/18 17:00 Blood Blood Culture - Preliminary 04/25/18 17:42 Buttock Gram Stain - Final 04/25/18 17:42 Buttock Wound Culture - Final Staphylococcus Aureus Pseudomonas Aeruginosa Laboratory WBC 4.8 X10^3/uL (3.6-10.0) 04/28/18 04:52 RBC 4.19 X10^6/uL (4.7-6.0) L 04/28/18 04:52 Hgb 11.7 g/dL (13.5-18.0) L 04/28/18 04:52 Hct 36.7 % (42.0-54.0) L 04/28/18 04:52 MCV 87.5 fL (80.0-100.0) 04/28/18 04:52 MCH 27.8 pg (27.0-34.0) 04/28/18 04:52 MCHC 31.8 g/dL (33.0-35.0) L 04/28/18 04:52 RDW 16.3 % (11.6-16.5) 04/28/18 04:52 Plt Count 169 X10^3/uL (150.0-450.0) 04/28/18 04:52 MPV 6.6 fL (7.4-11.0) L 04/28/18 04:52 Neut % (Auto) 61.9 % (42.0-75.0) 04/28/18 04:52 Lymph % (Auto) 19.1 % (21.0-51.0) L 04/28/18 04:52 [place] % (Auto) 6.5 % (0.0-13.0) 04/28/18 04:52 Eos % (Auto) 12.1 % (0.9-2.9) H 04/28/18 04:52 Baso % (Auto) 0.4 % (0.2-1.0) 04/28/18 04:52 Neut # (Auto) 3.0 x10^3/uL (2.2-4.8) 04/28/18 04:52 Lymph # (Auto) 0.9 X10^3/uL (1.3-2.9) L 04/28/18 04:52 [place] # (Auto) 0.3 x10^3/uL (0.3-0.8) 04/28/18 04:52 Eos # (Auto) 0.6 x10^3/uL (0.0-0.2) H 04/28/18 04:52 Baso # (Auto) 0.0 X10^3/uL (0.0-0.1) 04/28/18 04:52 Absolute Nucleated RBC 0.1 /100WBC 04/28/18 04:52 Sodium 142 mmol/L (136-145) 04/28/18 04:52 Corrected Sodium 142 mmol/L (136-145) 04/28/18 04:52 Potassium 4.1 mmol/L (3.5-5.1) 04/28/18 04:52 Chloride 107 mmol/L (98-107) 04/28/18 04:52 Carbon Dioxide 31.7 mmol/L (21-32) 04/28/18 04:52 BUN 7 mg/dL (7-18) 04/28/18 04:52 Creatinine 1.34 mg/dL (0.70-1.30) H 04/28/18 04:52 Est GFR (MDRD) Af Amer > 60 (>60) 04/28/18 04:52 Est GFR (MDRD) Non-Af 58 (>60) L 04/28/18 04:52 Glucose 117 mg/dL (65-99) H 04/28/18 04:52 POC Glucose (mg/dL) 109 mg/dL (65-99) H 04/28/18 06:06 Calcium 8.4 mg/dL (8.5-10.1) L 04/28/18 04:52 Corrected Calcium 9.4 mg/dL (8.5-10.1) 04/28/18 04:52 Total Bilirubin 0.20 mg/dL (0.2-1.0) 04/28/18 04:52 AST 20 Units/L (15-37) 04/28/18 04:52 ALT 31 Units/L (12-78) 04/28/18 04:52 Alkaline Phosphatase 102 Units/L (46-116) 04/28/18 04:52 Total Protein 6.5 g/dL (6.4-8.2) 04/28/18 04:52 Albumin 2.7 g/dL (3.4-5.0) L 04/28/18 04:52 Globulin 3.8 g/dL (2.5-4.5) 04/28/18 04:52 Albumin/Globulin Ratio 0.7 Ratio (1.1-2.1) L 04/28/18 04:52 Vancomycin Trough 23.7 ug/mL (15-20) H* 04/27/18 21:19 - Plan (1) Decubitus ulcer of buttock Status: Acute Qualifiers: Pressure ulcer stage: unspecified pressure ulcer stage Laterality: right Qualified Code(s): L89.319 - Pressure ulcer of right buttock, unspecified stage Plan: WOUND CARE, ZOSYN IV, VANCOMYCIN IV, WOUND CULTURES, CONTINUE TO MONITOR (2) Cellulitis of buttock, right Status: Acute (3) Staphylococcus aureus infection Status: Acute Plan: VANCOMYCIN IV, LEVAQUIN IV, WOUND CARE, CONTINUE TO MONITOR (4) Pseudomonas aeruginosa infection Status: Acute Plan: VANCOMYCIN IV, LEVAQUIN IV, WOUND CARE, CONTINUE TO MONITOR (5) Shortness of breath Status: Acute Plan: DUONEBS BID, CONTINUE TO MONITOR (6) Diabetes Status: Chronic Qualifiers: Diabetes mellitus type: type 2 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
[2018-04-28] MEDS ORDERED: VANCOMYCIN 1 GRAM PREMIX (ADDVANTAGE) 250 ML IV SCH (09:00)
[2018-04-28] MEDS: COZAAR PO SCH (09:38)
[2018-04-28] MEDS: ASPIRIN EC 81 MG PO SCH (09:38)
[2018-04-28] MEDS: PROCARDIA XL PO SCH (09:39)
[2018-04-28] MEDS: FOLIC ACID TAB 1 MG PO SCH (09:39)
[2018-04-28] MEDS: ELIQUIS PO SCH (09:39)
[2018-04-28] MEDS: LEVAQUIN PREMIX IV 500 MG 500 MG/100 ML BAG IV SCH (09:40)
[2018-04-28] MEDS: EMPAGLIFLOZIN PO SCH (09:40)
[2018-04-28] MEDS: JANUVIA PO SCH (09:40)
[2018-04-28] MEDS: DUONEB 0.5 MG/3 MG NEB SCH (09:58)
[2018-04-28] MEDS ORDERED: INVANZ INJ 1 GM VIAL 1 GM in NS 100 ML IV + SPIKE MINIBAG* 100 ML IV SCH (13:00)
[2018-04-28 17:27] VITALS: BP 150/70
[2018-04-29] MEDS ORDERED: VANCOMYCIN 1 GRAM PREMIX (ADDVANTAGE) 250 ML IV SCH (09:00)
--- NOTE | 2018-05-12 22:51 | DR.CARTERD ---
- Discharge Summary for: Discharge Summary for Date of:: 04/28/18 - Admission Date Date of Admission: 04/25/18 - Admission Diagnoses Admission Diagnosis: (1) Decubitus ulcer of buttock (2) Cellulitis of buttock, right - Discharge Date Discharge Date: 04/28/18 - Discharge Diagnoses Discharge Diagnosis: (1) Staphylococcus aureus infection (2) Pseudomonas aeruginosa infection (3) Shortness of breath (4) Cellulitis of buttock, right (5) Decubitus ulcer of buttock (6) Diabetes (7) Essential hypertension - Hospital Course Hospital Course: DAY ONE, MR. MCMILLAN IS A 58 YEAR OLD PATIENT OF OURS WHO PRESENTED TO THE HOSPITAL A DIRECT ADMISSION. HOME HEALTH NURSES FROM [facility] REPORTED THAT PATIENT HAD A NON-HEALING, INFECTED DECUBITUS ULCER TO THE BUTTOCKS. THEY REPORTED TREATING THE WOUND WITH TWO DIFFERENT ANTIBIOTIC CREAMS OVER THE PAST TWO WEEKS WITH NO IMPROVEMENT IN WOUND. WOUND TO RIGHT LOWER BUTTOCK MEASURED APPROXIMATELY [id number]. UNDERMINING NOTED TO RIGHT SIDE OF WOUND. WOUND BED BRIGHT RED IN COLOR. THERE WAS MINIMAL AMOUNT OF SEROUS DRAINAGE NOTED. SURROUNDING TISSUE WAS BRIGHT RED IN COLOR. WOUND TO RIGHT UPPER BUTTOCK MEASURES [id number]. WOUND BED WAS BRIGHT RED IN COLOR. THERE WAS A MINIMAL AMOUNT OF SEROUS DRAINAGE NOTED. SURROUNDING TISSUE WAS BRIGHT RED IN COLOR. PATIENT ALSO HAD MULTIPLE WOUNDS TO BACK OF RIGHT THIGH. ON ADMISSION, VITALS WERE 98.4, 99, 22, 95% RA, 135/86. LABS WERE OBTAINED. ABNORMAL LAB VALUES INCLUDED THE FOLLOWING: RBC 4.68, Hgb 12.8, Hct 40.0, MCHC 32.0, MPV 6.6, Carbon Dioxide 1.51, GFR non 51, Glucose 140, Alk Phos 124, A/G Ratio 0.8. WOUND CULTURES WERE OBTAINED. HE WAS STARTED ON ZOSYN AND VANCOMYCIN IV. WE CONTINUED WITH WOUND CARE AND MONITORED PATIENT. DAY TWO, PATIENT WAS ALERT AND ORIENTED, LYING IN BED ON MORNING ROUNDS. HE COMPLAINED OF GENERALIZED WEAKNESS AND SHORTNESS OF BREATH. ON EXAMINATION, HEART WAS REGULAR IN RATE AND RHYTHM. BILATERAL LUNGS WERE NOTED WITH DIMINISHED LUNG SOUNDS THROUGHOUT. ABDOMEN WAS ROUND, SOFT, AND NON-TENDER WITH NORMAL BOWEL SOUNDS NOTED IN ALL QUADRANTS. WOUNDS TO BUTTOCK AND RIGHT THIGH WERE NOTED WITH DRESSINGS. DRESSINGS WERE DRY AND INTACT. HIS VITALS WERE 97.8- 92-22-93%-145/68. LABS WERE OBTAINED. ABNORMAL LAB VALUES INCLUDED THE FOLLOWING : RBC 4.25, HGB 11.9, HCT 36.4, CREATININE 1.52, GLUCOSE 120, CALCIUM 8.4, ALBUMIN 2.9. WE CONTINUED VANCOMYCIN IV, ZOSYN IV, AND WOUND CARE. DAY THREE, HE CONTINUED WITH REPORTS OF GENERALIZED WEAKNESS AND SHORTNESS OF BREATH. ON EXAMINATION, HEART WAS REGULAR IN RATE AND RHYTHM. BILATERAL LUNGS WERE NOTED WITH DIMINISHED LUNG SOUNDS THROUGHOUT. ABDOMEN WAS ROUND, SOFT, AND NON-TENDER WITH NORMAL BOWEL SOUNDS NOTED IN ALL QUADRANTS. WOUNDS TO BUTTOCK AND RIGHT THIGH WERE NOTED WITH DRESSINGS. DRESSINGS WERE DRY AND INTACT. HIS VITALS WERE 98.6-82-16-97%-123/61. LABS WERE OBTAINED. ABNORMAL LAB VALUES INCLUDED THE FOLLOWING: RBC 4.11, HGB 11.7, HCT 36.7, CREATININE 1.47, GLUCOSE 132, CALCIUM 7.8, TOTAL PROTEIN 6.2, ALBUMIN 2.6. WOUND CULTURES REPORTED GROWTH OF STAPYLOCOCCUS AUREUS AND PSEUDOMONAS AERUGINOSA IN WOUNDS. WE DISCONTINUED THE ZOSYN AND STARTED LEVAQUIN IV DAILY. VANCOMYCIN IV WAS CONTINUED. DAY FOUR, PATIENT REPORTED HE WAS FEELING BETTER. WOUNDS WERE HEALING. VITALS STABLE. LABS WNL. WE PLANNED FOR DISCHARGE WITH CONTINUED IV AND PO ANTIBIOTICS. INSTRUCTIONS FOR MEDICATIONS AND FOLLOW UP WERE DISCUSSED WITH PATIENT AND FAMILY, BOTH VOICED UNDERSTANDING. PATIENT DISCHARGED HOME IN STABLE CONDITION WITH FAMILY. - Discharge Medications Discharge Medications: Home Medication List empagliflozin [Jardiance] 1 tab PO DAILY 04/25/18 [History] furosemide 1 tab PO BID PRN 04/25/18 [History] ipratropium-albuterol 1 ea NEB BID 04/25/18 [History] sitagliptin [Januvia] 1 tab PO DAILY 04/25/18 [History] ciprofloxacin HCl [Cipro] 500 mg PO Q12H #28 tab 04/28/18 [Rx] ertapenem [Invanz] 1 g IV DAILY #14 ea 04/28/18 [Rx] hydrocodone-acetaminophen 1 tab PO Q4H PRN #120 tab 04/28/18 [Rx] Prescriptions: ciprofloxacin HCl [Cipro] Dom Subramanian ertapenem [Invanz] Dom Subramanian hydrocodone-acetaminophen Dom Subramanian folic acid 1 mg PO DAILY #0 tab 05/13/13 losartan 100 mg PO DAILY 10/05/14 nifedipine 30 mg PO DAILY 10/05/14 aspirin [Adult Low Dose Aspirin] 1 tab PO DAILY 06/28/17 apixaban [Eliquis] 5 mg PO BID #60 tab 07/02/17 tramadol 50 mg PO QID PRN #120 tab 07/02/17 docusate sodium [Stool Softener] 1 tab PO DAILY 10/06/17 insulin glargine [Lantus U-100 Insulin] 2 - 8 units SC HS 10/06/17 mupirocin 1 applic TOP TID #1 tube 10/28/17 - Discharge Disposition Discharge Disposition: PATIENT IS TO FOLLOW UP IN OUR OFFICE IN ONE WEEK.
== END 2018-04-28 18:10 | disposition home health service (06) ==
LOC: MED/SURG
PROVIDERS: ADMIT Internal Medicine; ATTEND Internal Medicine
DX: I10 Essential (primary) hypertension; R53.1 Weakness; B95.61 Methicillin susceptible Staphylococcus aureus infection as the cause of diseases classified elsewhere; R06.02 Shortness of breath; R26.89 Other abnormalities of gait and mobility; B96.29 Other Escherichia coli [E. coli] as the cause of diseases classified elsewhere; E11.65 Type 2 diabetes mellitus with hyperglycemia; L89.319 Pressure ulcer of right buttock, unspecified stage; L03.317 Cellulitis of buttock; B96.5 Pseudomonas (aeruginosa) (mallei) (pseudomallei) as the cause of diseases classified elsewhere; E11.620 Type 2 diabetes mellitus with diabetic dermatitis
CPT/HCPCS: 36415; 80053; 80202; 82565; 85025; 87040; 87070; 87075; 87077; 87186; 87205; 94640; 94760; 97110; 97112; 97163; 97530; A4216; A4222; G0378; J1335; J1642; J1956; J2543; J3370; J7040; J7050; J7620

== ENCOUNTER 2018-07-05 07:46 | Inpatient (IN) ==
[2018-07-05] MEDS ORDERED: HumuLIN R SUBCUT PRN (11:37)
[2018-07-05] MEDS ORDERED: PHARMACY CONSULT - VANCOMYCIN XX SCH (11:37)
[2018-07-05] MEDS ORDERED: PHARMACY CONSULT - DOSE _____ XX SCH (11:37)
[2018-07-05 12:08] LABS: BASOPHILS % (AUTO) 0.5 % (0.2-1.0); EOSINOPHILS # (AUTO) 0.4 x10^3/uL (0.0-0.2); EOSINOPHILS % (AUTO) 5.5 % (0.9-2.9); HEMATOCRIT 39.9 % (42.0-54.0); HEMOGLOBIN 12.8 g/dL (13.5-18.0); LYMPHOCYTES # (AUTO) 0.6 X10^3/uL (1.3-2.9); LYMPHOCYTES % (AUTO) 7.8 % (21.0-51.0); MEAN CORPUSCULAR HEMOGLOBIN 27.8 pg (27.0-34.0); MEAN CORPUSCULAR HGB CONC 32.1 g/dL (33.0-35.0); MEAN CORPUSCULAR VOLUME 86.7 fL (80.0-100.0); MEAN PLATELET VOLUME 6.3 fL (7.4-11.0); MONOCYTES # (AUTO) 0.4 x10^3/uL (0.3-0.8); MONOCYTES % (AUTO) 4.8 % (0.0-13.0); NEUTROPHILS # (AUTO) 6.6 x10^3/uL (2.2-4.8); NEUTROPHILS % (AUTO) 81.4 % (42.0-75.0); PLATELET COUNT 316 X10^3/uL (150.0-450.0); RED CELL DISTRIBUTION WIDTH 15.7 % (11.6-16.5); WHITE BLOOD COUNT 8.1 X10^3/uL (3.6-10.0)
[2018-07-05 12:18] LABS: ALANINE AMINOTRANSFERASE 21 Units/L (12-78); ALBUMIN 3.1 g/dL (3.4-5.0); ALKALINE PHOSPHATASE 114 Units/L (46-116); ASPARTATE AMINO TRANSFERASE 21 Units/L (15-37); BLOOD UREA NITROGEN 21 mg/dL (7-18); CALCIUM 9.4 mg/dL (8.5-10.1); CHLORIDE 98 mmol/L (98-107); COR CA(FOR HYPOALB) 10.1 mg/dL (8.5-10.1); CREATININE 1.72 mg/dL (0.70-1.30); SODIUM 138 mmol/L (136-145); TOTAL PROTEIN 8.2 g/dL (6.4-8.2); eGFR NON BLACK RACES 43 (>60)
[2018-07-05 12:54] VITALS: BMI 47.3
[2018-07-05] MEDS: NS 1000 ML 1,000 ML IV SCH (13:18)
[2018-07-05] MEDS: NORCO 5/325 MG TAB PO PRN (13:20)
[2018-07-05] MEDS: DUONEB 0.5 MG/3 MG NEB SCH (13:26)
[2018-07-05] MEDS: VANCOMYCIN HCL 1 GM VIAL 1 G in D5W 250 ML IV 250 ML IV SCH ×2 (14:47→21:57)
[2018-07-05] MEDS: MORPHINE SULFATE INJ 2 MG INJ IVP PRN (15:04)
[2018-07-05] MEDS: ZOSYN VIAL 4.5 GRAMS 4.5 G in NS 100 ML IV + SPIKE MINIBAG* 100 ML IV SCH ×2 (15:56→22:53)
[2018-07-05] MEDS ORDERED: BACTROBAN TOPICAL OINT ONE (18:03)
[2018-07-05] MEDS: SNACK - Diabetic Appropriate PO SCH (20:16)
[2018-07-05] MEDS ORDERED: NAPROXEN SODIUM PO PRN (20:54)
[2018-07-05] MEDS ORDERED: ULTRAM PO PRN (20:54)
[2018-07-05] MEDS ORDERED: NIFEDIPINE 30 MG PO SCH (21:00)
[2018-07-05] MEDS: ELIQUIS PO SCH (21:55)
[2018-07-05] MEDS: ZANAFLEX PO SCH (21:56)
[2018-07-05] MEDS: BACTROBAN TOPICAL OINT TOP SCH (21:56)
[2018-07-05] MEDS: PROCARDIA XL PO SCH (21:56)
[2018-07-06] MEDS: DUONEB 0.5 MG/3 MG NEB SCH ×3 (02:03→21:29)
[2018-07-06] MEDS: NS 1000 ML 1,000 ML IV SCH ×3 (03:14→18:11)
[2018-07-06] MEDS: NORCO 5/325 MG TAB PO PRN (03:49)
[2018-07-06] MEDS: BACTROBAN TOPICAL OINT TOP SCH ×3 (05:01→23:14)
[2018-07-06] MEDS: VANCOMYCIN HCL 1 GM VIAL 1 G in D5W 250 ML IV 250 ML IV SCH ×3 (05:01→21:23)
[2018-07-06] MEDS: ZOSYN VIAL 4.5 GRAMS 4.5 G in NS 100 ML IV + SPIKE MINIBAG* 100 ML IV SCH ×3 (06:17→21:22)
[2018-07-06 06:22] LABS: BASOPHILS % (AUTO) 0.4 % (0.2-1.0); EOSINOPHILS # (AUTO) 0.7 x10^3/uL (0.0-0.2); EOSINOPHILS % (AUTO) 13.5 % (0.9-2.9); LYMPHOCYTES # (AUTO) 1.1 X10^3/uL (1.3-2.9); LYMPHOCYTES % (AUTO) 20.2 % (21.0-51.0); MEAN CORPUSCULAR HEMOGLOBIN 27.8 pg (27.0-34.0); MEAN CORPUSCULAR HGB CONC 32.2 g/dL (33.0-35.0); MEAN CORPUSCULAR VOLUME 86.3 fL (80.0-100.0); MEAN PLATELET VOLUME 6.2 fL (7.4-11.0); MONOCYTES # (AUTO) 0.4 x10^3/uL (0.3-0.8); MONOCYTES % (AUTO) 7.9 % (0.0-13.0); PLATELET COUNT 228 X10^3/uL (150.0-450.0); RED BLOOD COUNT 3.83 X10^6/uL (4.7-6.0); RED CELL DISTRIBUTION WIDTH 15.5 % (11.6-16.5); WHITE BLOOD COUNT 5.2 X10^3/uL (3.6-10.0)
[2018-07-06] MEDS: MORPHINE SULFATE INJ 2 MG INJ IVP PRN (06:24)
[2018-07-06 06:25] LABS: HEMOGLOBIN 10.6 g/dL (13.5-18.0)
[2018-07-06 06:55] LABS: ALBUMIN 2.4 g/dL (3.4-5.0); CALCIUM 8.4 mg/dL (8.5-10.1); CARBON DIOXIDE 35.7 mmol/L (21-32); COR CA(FOR HYPOALB) 9.7 mg/dL (8.5-10.1); CREATININE 1.63 mg/dL (0.70-1.30); TOTAL PROTEIN 6.6 g/dL (6.4-8.2)
[2018-07-06] MEDS: ZyrTEC TAB 10 MG PO SCH (08:16)
[2018-07-06] MEDS: ELIQUIS PO SCH ×2 (08:16→21:22)
[2018-07-06] MEDS: JANUVIA PO SCH (08:16)
[2018-07-06] MEDS: COLACE CAP 100 MG PO SCH (08:16)
[2018-07-06] MEDS: FOLIC ACID TAB 1 MG PO SCH (08:16)
[2018-07-06] MEDS: COZAAR PO SCH (08:16)
--- NOTE | 2018-07-06 08:46 | DR.PROGNOT ---
Hospital Progress Notes - Progress Note for Day of: Progress Note Date: 07/06/18 - Chief Complaint Chief Complaint: pt was seen with buttock ulcers and dermatitis . having bleeding from the ulcers and skin abrasions.. - Past Medical Family Social History Past Med/Fam/Surg Hx: No changes since H&P Allergies: Allergies No Known Drug Allergies Allergy (Verified 06/28/17 14:35) - Review Of Systems ROS: No change since H&P - Vital Signs Vital Signs: Temperature 96.7 F Pulse Rate [Left Brachial] 74 Pulse Rate 94 Respiratory Rate 20 Blood Pressure [Right Radial 122/71 Artery] Blood Pressure [Right Arm] 114/65 Blood Pressure [Left Arm] 121/67 Blood Pressure 150/70 O2 Sat by Pulse Oximetry 99 - Physical Exam Oriented: Normal Eyes: Normal Ear: Normal Nose: Normal GI:Auscultation: Normal GI:Palpation: Normal Skin: Other (multiple skin ulcers 2 x 2 cm on both buttockc with dermatitis and skin abrasions of sacral area) Speech Pattern: Clear, Appropriate - Laboratory and Diagnostics Result Diagrams: 07/06/18 05:54 07/06/18 05:54 Labs: 07/05/18 12:33 Sacral Gram Stain - Final 07/05/18 12:33 Sacral Gram Stain - Final 07/05/18 12:33 Sacral Gram Stain - Final 07/05/18 12:33 Sacral Gram Stain - Final Laboratory WBC 5.2 X10^3/uL (3.6-10.0) 07/06/18 05:54 RBC 3.83 X10^6/uL (4.7-6.0) L 07/06/18 05:54 Hgb 10.6 g/dL (13.5-18.0) L D 07/06/18 05:54 Hct 33.0 % (42.0-54.0) L 07/06/18 05:54 MCV 86.3 fL (80.0-100.0) 07/06/18 05:54 MCH 27.8 pg (27.0-34.0) 07/06/18 05:54 MCHC 32.2 g/dL (33.0-35.0) L 07/06/18 05:54 RDW 15.5 % (11.6-16.5) 07/06/18 05:54 Plt Count 228 X10^3/uL (150.0-450.0) 07/06/18 05:54 MPV 6.2 fL (7.4-11.0) L 07/06/18 05:54 Neut % (Auto) 58.0 % (42.0-75.0) 07/06/18 05:54 Lymph % (Auto) 20.2 % (21.0-51.0) L 07/06/18 05:54 [place] % (Auto) 7.9 % (0.0-13.0) 07/06/18 05:54 Eos % (Auto) 13.5 % (0.9-2.9) H 07/06/18 05:54 Baso % (Auto) 0.4 % (0.2-1.0) 07/06/18 05:54 Neut # (Auto) 3.0 x10^3/uL (2.2-4.8) 07/06/18 05:54 Lymph # (Auto) 1.1 X10^3/uL (1.3-2.9) L 07/06/18 05:54 [place] # (Auto) 0.4 x10^3/uL (0.3-0.8) 07/06/18 05:54 Eos # (Auto) 0.7 x10^3/uL (0.0-0.2) H 07/06/18 05:54 Baso # (Auto) 0.0 X10^3/uL (0.0-0.1) 07/06/18 05:54 Absolute Nucleated RBC 0.1 /100WBC 07/06/18 05:54 Sodium 136 mmol/L (136-145) 07/06/18 05:54 Corrected Sodium 136 mmol/L (136-145) 07/06/18 05:54 Potassium 3.8 mmol/L (3.5-5.1) 07/06/18 05:54 Chloride 98 mmol/L (98-107) 07/06/18 05:54 Carbon Dioxide 35.7 mmol/L (21-32) H 07/06/18 05:54 BUN 18 mg/dL (7-18) 07/06/18 05:54 Creatinine 1.63 mg/dL (0.70-1.30) H 07/06/18 05:54 Est GFR (MDRD) Af Amer 56 (>60) L 07/06/18 05:54 Est GFR (MDRD) Non-Af 46 (>60) L 07/06/18 05:54 Glucose 111 mg/dL (65-99) H 07/06/18 05:54 POC Glucose (mg/dL) 97 mg/dL (65-99) 07/06/18 05:12 Calcium 8.4 mg/dL (8.5-10.1) L 07/06/18 05:54 Corrected Calcium 9.7 mg/dL (8.5-10.1) 07/06/18 05:54 Total Bilirubin 0.40 mg/dL (0.2-1.0) 07/06/18 05:54 AST 20 Units/L (15-37) 07/06/18 05:54 ALT 18 Units/L (12-78) 07/06/18 05:54 Alkaline Phosphatase 86 Units/L (46-116) 07/06/18 05:54 Total Protein 6.6 g/dL (6.4-8.2) 07/06/18 05:54 Albumin 2.4 g/dL (3.4-5.0) L 07/06/18 05:54 Globulin 4.2 g/dL (2.5-4.5) 07/06/18 05:54 Albumin/Globulin Ratio 0.6 Ratio (1.1-2.1) L 07/06/18 05:54 - Assessment and Plan 1: multiple decuditus ulcers. dermatitis , skin abrasions. Morbid obesity ,. DM. COPD . same local care and IV ATB .. no need for debridement now .
[2018-07-06] MEDS ORDERED: LASIX PO PRN (09:00)
[2018-07-06] MEDS: [UNRECOGNIZED DRUG - OTHER] PO SCH (09:27)
[2018-07-06] MEDS: EMPAGLIFLOZIN PO SCH (09:27)
[2018-07-06] MEDS: ULTRAM PO PRN (10:13)
[2018-07-06] MEDS ORDERED: PHARMACY COMMENT IV NR (13:30)
[2018-07-06 14:12] LABS: CREATININE 1.79 mg/dL (0.70-1.30)
[2018-07-06 14:15] LABS: VANCOMYCIN,TROUGH 22.6 ug/mL (15-20)
--- NOTE | 2018-07-06 16:11 | DR.H&P ---
H&P - History & Physical for Day of: H&P Date: 07/05/18 - Chief Complaint Chief Complaint: infected decubitus ulcer - History of Present Illness History of Present Illness: is a 58 year old patient of ours who presented to the hospital as a direct admission. Home health nurses report that patient has non-healing, infected decubitus ulcers to the buttocks. They report treating with two different antibiotics creams as well as oral and IV antibiotics with no improvement in wounds. Four total wounds noted to sacral area, first wound to the gluteal crease is a pressure ulcer that measures 4.5cm in length. Unable to accurately measure width. It is unstageable. Wound bed is bright pink in color with moderate amount of serosanguinous drainage noted. Wound culture collected. Second wound to right gluteal fold is a stage 3 pressure ulcer noted to the right gluteal fold that measures 4cm x 4cm. The wound bed is bright red in color and moist in appearance. Serous drainage noted. Surrounding tissue is pink in color. Third wound to left buttock is a pressure ulcer that measures 4cm x 1.5cm. Wound bed is bright red in color. Minimal amount of serous drainage noted. On auscultation of lung harrell patient noted with diminished breath sounds throughout and placed on supplemental oxygen at 2L/min via nasal cannula. Medical History includes: Cataracts, CAD, CHF, Hyperlipidemia, Hypertension, Bronchitis, Pneumonia, COPD, Sleep Apnea, Gerd, Kidney Stones, DM type II, Skin CA. On admission, vitals were 98, 98, 22, 100% 2L NC, 151/92. Labs were obtained. Abnormal Labs include the following: RBC 4.60, Hgb 12.8, Hct 39.9, MCHC 32.1, MPV 6.3, Neut% 81.4, Lymph% 7.8, Eos% 5.5, Neut# 6.6, Lymph# 0.6, Eos# 0.4, Carbon Dioxide 35.0, BUN 21, Creatinine 1.72, GFR af 53, GFR non 43, Glucose 109, Albumin 3.1, Globulin 5.1, A/G Ratio 0.6. Blood Cultures x2 Pending. Wound cultures collected from all wounds and sent to lab. Dr. Resendiz (general surgeon) consulted for possible surgical debridement of wounds. Patient evaluated by physical and occupational therapy on admission who noted patient to require assistance with all ADLs. He was started on IV zosyn and Vancomycin. We plan to follow up with AM labs and continue to monitor patient. - Past Medical History Past Medical History: Arthritis, Asthma, CHF, COPD, Diabetes, Gout, Headaches, Hypertension, Kidney Stones Additional Medical History: Cataracts, Glaucoma, Ear Infections, Pneumonia, Pulmonary Edema, Gout, Back Pain, Skin Cancer - Past Surgical History Surgical History: Appendectomy, Ortho Surgery Additional Surgical History: Cataract Surgery, Left Ankle - Family History Family Medical History: Diabetes Mellitus, [place], Sudden Cardiac , Hypertension - Social History Does patient currently use any type of tobacco product: No Have you used tobacco products in the last 12 months: No Type of Tobacco Use: None Does any household member use tobacco: No Alcohol Use: None Drug Use: None - Medications Home Medications: No Known Drug Allergies Allergy (Verified 06/28/17 14:35) CONTINUE taking the following medications cetirizine 1 tab PO DAILY 07/05/18 [History] naproxen sodium [Aleve] 1 cap PO Q8H PRN 07/05/18 [History] phendimetrazine tartrate 1 tab PO DAILY 07/05/18 [History] tizanidine 1 tab PO HS 07/05/18 [History] - Review of Systems Constitutional: Weakness Eyes: No Symptoms Reported ENT: No Symptoms Reported Respiratory: Shortness of Breath Cardiovascular: No Symptoms Reported Gastrointestinal: No Symptoms Reported Genitourinary: No Symptoms Reported Musculoskeletal: Other (bilateral hip pain ) Skin: See HPI, Wound (multiple sacral wounds ) Neurological: Weakness - Physical Exam Vital Signs: Temperature 97.8 F Pulse Rate [Left Brachial] 90 Pulse Rate 84 Respiratory Rate 20 Blood Pressure [Right Radial 122/71 Artery] Blood Pressure [Right Arm] 157/67 Blood Pressure [Left Arm] 121/67 Blood Pressure 150/70 O2 Sat by Pulse Oximetry 98 Oriented: Normal Eyes: Normal Ear: Normal Nose: Normal Throat: Normal Respiratory: Diminished Throughout Cardiovascular: Normal : Normal Auscultation: Bowel Sounds: Normal Palpation: Normal Tenderness: Normal Skin: Red, Hot, Wound Musculoskeletal: Right, Left, Hip, Tender Psychiatric: Normal Mood Description: Calm Affect: Normal Speech Pattern: Clear - Assessment/Plan (1) Decubitus ulcer of buttock Qualifiers: Laterality: right Qualified Code(s): L89.319 - Pressure ulcer of right buttock, unspecified stage Status: Acute Plan: admit, iv vancomycin, iv zosyn, wound care, consult for possible debridement, continue to monitor (2) Cellulitis of buttock, right Status: Acute - Allergies Allergies/Adverse Reactions: Allergies Allergy/AdvReac Type Severity Reaction Status Date / Time No Known Drug Allergies Allergy Verified 06/28/17 14:35
[2018-07-06] MEDS ORDERED: PROCARDIA XL PO SCH (21:00)
[2018-07-06] MEDS: SNACK - Diabetic Appropriate PO SCH (21:21)
[2018-07-06] MEDS: ZANAFLEX PO SCH (21:22)
[2018-07-06] MEDS: PROCARDIA XL PO SCH (21:22)
[2018-07-07] MEDS: BACTROBAN TOPICAL OINT TOP SCH ×3 (06:20→21:30)
[2018-07-07] MEDS: ZOSYN VIAL 4.5 GRAMS 4.5 G in NS 100 ML IV + SPIKE MINIBAG* 100 ML IV SCH (06:20)
[2018-07-07 06:25] LABS: BASOPHILS % (AUTO) 0.5 % (0.2-1.0); EOSINOPHILS # (AUTO) 0.7 x10^3/uL (0.0-0.2); EOSINOPHILS % (AUTO) 13.3 % (0.9-2.9); HEMATOCRIT 33.2 % (42.0-54.0); HEMOGLOBIN 10.5 g/dL (13.5-18.0); LYMPHOCYTES # (AUTO) 0.9 X10^3/uL (1.3-2.9); LYMPHOCYTES % (AUTO) 16.9 % (21.0-51.0); MEAN CORPUSCULAR HEMOGLOBIN 27.6 pg (27.0-34.0); MEAN CORPUSCULAR HGB CONC 31.7 g/dL (33.0-35.0); MEAN CORPUSCULAR VOLUME 86.9 fL (80.0-100.0); MEAN PLATELET VOLUME 6.6 fL (7.4-11.0); MONOCYTES # (AUTO) 0.4 x10^3/uL (0.3-0.8); MONOCYTES % (AUTO) 7.3 % (0.0-13.0); NEUTROPHILS # (AUTO) 3.2 x10^3/uL (2.2-4.8); PLATELET COUNT 229 X10^3/uL (150.0-450.0); RED BLOOD COUNT 3.82 X10^6/uL (4.7-6.0); RED CELL DISTRIBUTION WIDTH 15.3 % (11.6-16.5); WHITE BLOOD COUNT 5.1 X10^3/uL (3.6-10.0)
[2018-07-07 07:06] LABS: ALANINE AMINOTRANSFERASE 18 Units/L (12-78); ALBUMIN 2.3 g/dL (3.4-5.0); ALKALINE PHOSPHATASE 83 Units/L (46-116); ASPARTATE AMINO TRANSFERASE 22 Units/L (15-37); BLOOD UREA NITROGEN 13 mg/dL (7-18); CALCIUM 8.1 mg/dL (8.5-10.1); CARBON DIOXIDE 34.2 mmol/L (21-32); CHLORIDE 103 mmol/L (98-107); COR CA(FOR HYPOALB) 9.5 mg/dL (8.5-10.1); CREATININE 1.54 mg/dL (0.70-1.30); SODIUM 139 mmol/L (136-145); TOTAL PROTEIN 6.4 g/dL (6.4-8.2); eGFR NON BLACK RACES 49 (>60)
[2018-07-07] MEDS: DUONEB 0.5 MG/3 MG NEB SCH ×2 (08:12→20:58)
[2018-07-07] MEDS: ZyrTEC TAB 10 MG PO SCH (08:39)
[2018-07-07] MEDS: COLACE CAP 100 MG PO SCH (08:39)
[2018-07-07] MEDS: ELIQUIS PO SCH ×2 (08:39→20:28)
[2018-07-07] MEDS: JANUVIA PO SCH (08:39)
[2018-07-07] MEDS: VANCOMYCIN HCL 1 GM VIAL 1 G in D5W 250 ML IV 250 ML IV SCH ×2 (08:39→20:27)
[2018-07-07] MEDS: COZAAR PO SCH (08:39)
[2018-07-07] MEDS: FOLIC ACID TAB 1 MG PO SCH (08:39)
[2018-07-07] MEDS: [UNRECOGNIZED DRUG - OTHER] PO SCH (10:00)
[2018-07-07] MEDS: EMPAGLIFLOZIN PO SCH (10:00)
[2018-07-07] MEDS: MORPHINE SULFATE INJ 2 MG INJ IVP PRN (10:12)
--- NOTE | 2018-07-07 10:45 | PCM.PROG ---
Progress Note - Progress Note for Day of Date of Exam: 07/06/18 - Subjective Subjective: WAS ADMITTED FOR TREATMENT OF INFECTED SACRAL WOUNDS. TODAY, HE IS ALERT AND ORIENTED, LYING IN BED ON MORNING ROUNDS. HE COMPLAINS OF BILATERAL HIP PAIN TODAY. ON EXAMINATION, HEART IS REGULAR IN RATE AND RHYTHM. BILATERAL LUNGS ARE NOTED WITH DIMINISHED LUNG SOUNDS THROUGHOUT. HE IS CURRENTLY UTILIZING OXYGEN VIA NASAL CANNULA. ABDOMEN IS ROUND, SOFT, AND NON- TENDER WITH NORMAL BOWEL SOUNDS NOTED IN ALL QUADRANTS. BUTTOCKS IS NOTED WITH DRESSINGS. DRESSINGS DRY AND INTACT AT THIS TIME. HIS VITALS TODAY ARE 97.7-86- 20-97%-133/69. LABS WERE OBTAINED. ABNORMAL LAB VALUES INCLUDE THE FOLLOWING: RBC 3.83, HGB 10.6, HCT 33.0, CARBON DIOXIDE 35.7, CREATININE 1.63, GLUCOSE 111 , CALCIUM 8.4, ALBUMIN 2.4. WOUND CULTURES AND BLOOD CULTURES ARE PENDING. HE IS CURRENTLY RECEIVING IV VANCOMYCIN AND IV LEVAQUIN. CONSULTED WITH PATIENT AND DOES NOT FEEL THAT DEBRIDEMENT IS NECESSARY AT THIS TIME. TODAY, WE WILL CONTINUE WITH IV ANTIBIOTICS AND CURRENT PLAN OF CARE. WE PLAN TO FOLLOW UP WITH AM LABS AND CONTINUE TO MONITOR PATIENT. - Past Medical Family Social History Past Med/Fam/Surg Hx: No changes since H&P Allergies: Allergies No Known Drug Allergies Allergy (Verified 06/28/17 14:35) - Review of Systems ROS: No change since H&P - Vital Signs and I&O's Vital Signs: Temperature 98.1 F Pulse Rate [Right Brachial] 90 Pulse Rate [Left Brachial] 90 Pulse Rate 90 Respiratory Rate 20 Blood Pressure [Right Radial 122/71 Artery] Blood Pressure [Right Arm] 133/70 Blood Pressure [Left Arm] 121/67 Blood Pressure 150/70 O2 Sat by Pulse Oximetry 95 Intake and Output: Intake & Output 07/04/18 07/05/18 07/06/18 07/07/18 11:59 11:59 11:59 11:59 Intake Total 1510 / 1510 1680 / 1680 Output Total 825 / 825 1800 / 1800 Balance 685 / 685 -120 / -120 - Physical Exam Oriented: Normal Eyes: Normal Ear: Normal Nose: Normal Throat: Normal Cardiovascular: Normal : Normal Auscultation: Bowel Sounds: Normal Palpation: Normal Tenderness: Normal Skin: Red, Hot, Wound Musculoskeletal: Right, Left, Hip, Tender Psychiatric: Normal Mood Description: Calm Affect: Normal Speech Pattern: Clear, Appropriate - Laboratory and Diagnostics Result Diagrams: 07/07/18 05:19 07/07/18 05:19 Labs: 07/05/18 12:33 Sacral Gram Stain - Final 07/05/18 12:33 Sacral Wound Culture - Preliminary Staphylococcus Aureus Pseudomonas Aeruginosa 07/05/18 12:33 Sacral Gram Stain - Final 07/05/18 12:33 Sacral Wound Culture - Final Staphylococcus Aureus Pseudomonas Aeruginosa 07/05/18 12:33 Sacral Gram Stain - Final 07/05/18 12:33 Sacral Wound Culture - Preliminary Staphylococcus Aureus Pseudomonas Aeruginosa 07/05/18 12:33 Sacral Gram Stain - Final 07/05/18 12:33 Sacral Wound Culture - Final Staphylococcus Aureus Pseudomonas Aeruginosa Laboratory WBC 5.1 X10^3/uL (3.6-10.0) 07/07/18 05:19 RBC 3.82 X10^6/uL (4.7-6.0) L 07/07/18 05:19 Hgb 10.5 g/dL (13.5-18.0) L 07/07/18 05:19 Hct 33.2 % (42.0-54.0) L 07/07/18 05:19 MCV 86.9 fL (80.0-100.0) 07/07/18 05:19 MCH 27.6 pg (27.0-34.0) 07/07/18 05:19 MCHC 31.7 g/dL (33.0-35.0) L 07/07/18 05:19 RDW 15.3 % (11.6-16.5) 07/07/18 05:19 Plt Count 229 X10^3/uL (150.0-450.0) 07/07/18 05:19 MPV 6.6 fL (7.4-11.0) L 07/07/18 05:19 Neut % (Auto) 62.0 % (42.0-75.0) 07/07/18 05:19 Lymph % (Auto) 16.9 % (21.0-51.0) L 07/07/18 05:19 [place] % (Auto) 7.3 % (0.0-13.0) 07/07/18 05:19 Eos % (Auto) 13.3 % (0.9-2.9) H 07/07/18 05:19 Baso % (Auto) 0.5 % (0.2-1.0) 07/07/18 05:19 Neut # (Auto) 3.2 x10^3/uL (2.2-4.8) 07/07/18 05:19 Lymph # (Auto) 0.9 X10^3/uL (1.3-2.9) L 07/07/18 05:19 [place] # (Auto) 0.4 x10^3/uL (0.3-0.8) 07/07/18 05:19 Eos # (Auto) 0.7 x10^3/uL (0.0-0.2) H 07/07/18 05:19 Baso # (Auto) 0.0 X10^3/uL (0.0-0.1) 07/07/18 05:19 Absolute Nucleated RBC 0.0 /100WBC 07/07/18 05:19 Sodium 139 mmol/L (136-145) 07/07/18 05:19 Corrected Sodium TNP 07/07/18 05:19 Potassium 4.0 mmol/L (3.5-5.1) 07/07/18 05:19 Chloride 103 mmol/L (98-107) 07/07/18 05:19 Carbon Dioxide 34.2 mmol/L (21-32) H 07/07/18 05:19 BUN 13 mg/dL (7-18) 07/07/18 05:19 Creatinine 1.54 mg/dL (0.70-1.30) H 07/07/18 05:19 Est GFR (MDRD) Af Amer 60 (>60) 07/07/18 05:19 Est GFR (MDRD) Non-Af 49 (>60) L 07/07/18 05:19 Glucose 93 mg/dL (65-99) 07/07/18 05:19 POC Glucose (mg/dL) 97 mg/dL (65-99) 07/07/18 05:53 Calcium 8.1 mg/dL (8.5-10.1) L 07/07/18 05:19 Corrected Calcium 9.5 mg/dL (8.5-10.1) 07/07/18 05:19 Total Bilirubin 0.30 mg/dL (0.2-1.0) 07/07/18 05:19 AST 22 Units/L (15-37) 07/07/18 05:19 ALT 18 Units/L (12-78) 07/07/18 05:19 Alkaline Phosphatase 83 Units/L (46-116) 07/07/18 05:19 Total Protein 6.4 g/dL (6.4-8.2) 07/07/18 05:19 Albumin 2.3 g/dL (3.4-5.0) L 07/07/18 05:19 Globulin 4.1 g/dL (2.5-4.5) 07/07/18 05:19 Albumin/Globulin Ratio 0.6 Ratio (1.1-2.1) L 07/07/18 05:19 Vancomycin Trough 22.6 ug/mL (15-20) H* 07/06/18 13:26 - Plan (1) Decubitus ulcer of buttock Status: Acute Qualifiers: Laterality: right Qualified Code(s): L89.319 - Pressure ulcer of right buttock, unspecified stage Plan: admit, iv vancomycin, iv zosyn, wound care, consult for possible debridement, continue to monitor (2) Cellulitis of buttock, right Status: Acute
[2018-07-07] MEDS ORDERED: PHARMACY CONSULT - DOSE _____ XX SCH (11:00)
[2018-07-07] MEDS ORDERED: MERREM VIAL 1 G in NS 100 ML IV + SPIKE MINIBAG* 100 ML IV SCH (11:00)
[2018-07-07] MEDS: NS 1000 ML 1,000 ML IV SCH ×2 (12:01→15:51)
[2018-07-07] MEDS ORDERED: DULCOLAX SUPPOSITORY 10 MG RECTAL ONE (16:32)
[2018-07-07] MEDS: ULTRAM PO PRN (17:06)
[2018-07-07] MEDS: NORCO 5/325 MG TAB PO PRN (20:27)
[2018-07-07] MEDS: PROCARDIA XL PO SCH (20:28)
[2018-07-07] MEDS: SNACK - Diabetic Appropriate PO SCH (20:28)
[2018-07-07] MEDS: ZANAFLEX PO SCH (20:34)
[2018-07-08 06:24] LABS: BASOPHILS % (AUTO) 0.6 % (0.2-1.0); EOSINOPHILS # (AUTO) 0.7 x10^3/uL (0.0-0.2); EOSINOPHILS % (AUTO) 13.1 % (0.9-2.9); HEMOGLOBIN 10.9 g/dL (13.5-18.0); LYMPHOCYTES # (AUTO) 0.9 X10^3/uL (1.3-2.9); LYMPHOCYTES % (AUTO) 18.9 % (21.0-51.0); MEAN CORPUSCULAR HEMOGLOBIN 27.8 pg (27.0-34.0); MEAN CORPUSCULAR HGB CONC 31.9 g/dL (33.0-35.0); MEAN CORPUSCULAR VOLUME 87.1 fL (80.0-100.0); MEAN PLATELET VOLUME 6.5 fL (7.4-11.0); MONOCYTES # (AUTO) 0.3 x10^3/uL (0.3-0.8); MONOCYTES % (AUTO) 6.2 % (0.0-13.0); NEUTROPHILS # (AUTO) 3.1 x10^3/uL (2.2-4.8); NEUTROPHILS % (AUTO) 61.2 % (42.0-75.0); PLATELET COUNT 231 X10^3/uL (150.0-450.0); RED BLOOD COUNT 3.91 X10^6/uL (4.7-6.0); RED CELL DISTRIBUTION WIDTH 15.7 % (11.6-16.5)
[2018-07-08 06:35] LABS: ALANINE AMINOTRANSFERASE 19 Units/L (12-78); ALBUMIN 2.5 g/dL (3.4-5.0); ALKALINE PHOSPHATASE 83 Units/L (46-116); ASPARTATE AMINO TRANSFERASE 19 Units/L (15-37); BLOOD UREA NITROGEN 13 mg/dL (7-18); CALCIUM 8.1 mg/dL (8.5-10.1); CARBON DIOXIDE 31.4 mmol/L (21-32); CHLORIDE 103 mmol/L (98-107); COR CA(FOR HYPOALB) 9.3 mg/dL (8.5-10.1); CREATININE 1.45 mg/dL (0.70-1.30); SODIUM 138 mmol/L (136-145); TOTAL PROTEIN 6.8 g/dL (6.4-8.2); eGFR NON BLACK RACES 53 (>60)
[2018-07-08 08:00] LABS: CREATININE 1.49 mg/dL (0.70-1.30)
[2018-07-08 08:03] LABS: VANCOMYCIN,TROUGH 20.4 ug/mL (15-20)
[2018-07-08] MEDS ORDERED: PHARMACY COMMENT IV NR (08:30)
[2018-07-08] MEDS: COLACE CAP 100 MG PO SCH (08:39)
[2018-07-08] MEDS: FOLIC ACID TAB 1 MG PO SCH (08:39)
[2018-07-08] MEDS: JANUVIA PO SCH (08:39)
[2018-07-08] MEDS: COZAAR PO SCH ×2 (08:39→09:37)
[2018-07-08] MEDS: ELIQUIS PO SCH (08:39)
[2018-07-08] MEDS: ZyrTEC TAB 10 MG PO SCH (08:39)
[2018-07-08] MEDS: [UNRECOGNIZED DRUG - OTHER] PO SCH (08:41)
[2018-07-08] MEDS: EMPAGLIFLOZIN PO SCH (08:43)
[2018-07-08] MEDS: DUONEB 0.5 MG/3 MG NEB SCH (08:48)
[2018-07-08] MEDS: BACTROBAN TOPICAL OINT TOP SCH (09:38)
[2018-07-08 09:41] VITALS: BP 143/84
[2018-07-09] MEDS ORDERED: BACTROBAN TOPICAL OINT ONE (23:27)
--- NOTE | 2018-09-03 21:53 | DR.CARTERD ---
- Discharge Summary for: Discharge Summary for Date of:: 07/08/18 - Admission Date Date of Admission: 07/05/18 - Admission Diagnoses Admission Diagnosis: (1) Cellulitis of buttock, right (2) Decubitus ulcer of buttock - Discharge Date Discharge Date: 07/08/18 - Discharge Diagnoses Discharge Diagnosis: (1) Cellulitis of buttock, right (2) Pseudomonas Aeruginosa infection (3) E. Coli infection (4) Staphylococcus Aureus Infection (5) Decubitus ulcer of buttock - Hospital Course Hospital Course: is a 58 year old patient of ours who presented to the hospital as a direct admission. Home health nurses reported that patient had non-healing, infected decubitus ulcers to the buttocks. They reported treating with two different antibiotics creams as well as oral and IV antibiotics with no improvement in wounds. Four total wounds noted to sacral area, first wound to the gluteal crease was a pressure ulcer that measured 4.5cm in length. Unable to accurately measure width. It was unstageable. Wound bed was bright pink in color with moderate amount of serosanguinous drainage noted. Wound culture collected. Second wound to right gluteal fold was a stage 3 pressure ulcer noted to the right gluteal fold that measured 4cm x 4cm. The wound bed was bright red in color and moist in appearance. Serous drainage noted. Surrounding tissue was pink in color. Third wound to left buttock was a pressure ulcer that measured 4cm x 1.5cm. Wound bed was bright red in color. Minimal amount of serous drainage noted. On auscultation of lung harrell patient noted with diminished breath sounds throughout and placed on supplemental oxygen at 2L/min via nasal cannula. Medical History included: Cataracts, CAD, CHF, Hyperlipidemia, Hypertension, Bronchitis, Pneumonia, COPD, Sleep Apnea, Gerd, Kidney Stones, DM type II, Skin CA. On admission, vitals were 98, 98, 22, 100% 2L NC, 151/92. Labs were obtained. Abnormal Labs included the following: RBC 4.60, Hgb 12.8, Hct 39.9, MCHC 32.1, MPV 6.3, Neut% 81.4, Lymph% 7.8, Eos% 5.5, Neut# 6.6, Lymph# 0.6, Eos# 0.4, Carbon Dioxide 35.0, BUN 21, Creatinine 1.72, GFR af 53, GFR non 43, Glucose 109, Albumin 3.1, Globulin 5.1, A/G Ratio 0.6. Blood Cultures obtained. Wound cultures collected from all wounds and sent to lab. Dr. Resendiz (general surgeon) consulted for possible surgical debridement of wounds. Patient evaluated by physical and occupational therapy on admission who noted patient to require assistance with all ADLs. He was started on IV zosyn and Vancomycin. On day two, patient continued treatment. Dr. Resendiz consulted with patient and did not feel that debridement was necessary at that time. We continued to treat with wound care and IV antibiotics. On day three, wound cultures reported growth of Staphylococcus Aureus, E.Coli, and Pseudomonas Aeruginosa. Patient was placed on Meropenem which organisms were sensitive to. We continued to monitor. On day four, patient was doing well. Cellulitis to right buttock was noted with improvement. Vital signs stable. Labs wnl. We planned for discharge to [facility] for short-term rehab with wound treatment. Instructions for medications and follow up were discussed with patient and family, both voiced understanding. Patient discharged to care home in stable condition with staff. Labs: Microbiology 07/05/18 12:33 Sacral Gram Stain - Final 07/05/18 12:33 Sacral Wound Culture - Final Staphylococcus Aureus Pseudomonas Aeruginosa Escherichia Coli 07/05/18 12:33 Sacral Gram Stain - Final 07/05/18 12:33 Sacral Wound Culture - Final Staphylococcus Aureus Pseudomonas Aeruginosa 07/05/18 12:33 Sacral Gram Stain - Final 07/05/18 12:33 Sacral Wound Culture - Final Staphylococcus Aureus Pseudomonas Aeruginosa 07/05/18 12:33 Sacral Gram Stain - Final 07/05/18 12:33 Sacral Wound Culture - Final Staphylococcus Aureus Pseudomonas Aeruginosa - Discharge Medications Discharge Medications: Home Medication List cetirizine 1 tab PO DAILY 07/05/18 [History] naproxen sodium [Aleve] 1 cap PO Q8H PRN 07/05/18 [History] phendimetrazine tartrate 1 tab PO DAILY 07/05/18 [History] tizanidine 1 tab PO HS 07/05/18 [History] ciprofloxacin HCl [Cipro] 500 mg PO BID #28 tab 07/08/18 [Rx] hydrocodone-acetaminophen 1 tab PO Q4H PRN #120 tab 08/24/18 [Rx] sulfamethoxazole-trimethoprim [Bactrim DS] 1 tab PO BID #28 tab 07/08/18 [Rx] tramadol 50 mg PO QID PRN #120 tab 07/08/18 [Rx] Prescriptions: ciprofloxacin HCl [Cipro] Dom Subramanian hydrocodone-acetaminophen Dom Subramanian sulfamethoxazole-trimethoprim [Bactrim DS] Dom Subramanian tramadol Dom Subramanian folic acid 1 mg PO DAILY #0 tab 03/27/13 losartan 100 mg PO DAILY 10/05/14 nifedipine 30 mg PO HS 10/05/14 aspirin [Adult Low Dose Aspirin] 1 tab PO DAILY 06/28/17 apixaban [Eliquis] 5 mg PO BID #60 tab 07/02/17 docusate sodium [Stool Softener] 1 tab PO DAILY 10/06/17 insulin glargine [Lantus U-100 Insulin] 4 - 8 units SC HS 10/06/17 mupirocin 1 applic TOP TID #1 tube 10/28/17 empagliflozin 1 tab PO DAILY 04/25/18 furosemide 1 tab PO BID PRN 04/25/18 ipratropium-albuterol 1 ea NEB BID 04/25/18 sitagliptin 1 tab PO DAILY 04/25/18 - Discharge Disposition Discharge Disposition: We will follow up with patient in one week at care home.
== END 2018-07-08 09:40 | DRG 592 ==
LOC: OBS 11:17 → MED/SURG 17:40
PROVIDERS: ADMIT Internal Medicine; ATTEND Internal Medicine
DX: L89.159 Pressure ulcer of sacral region, unspecified stage; B96.5 Pseudomonas (aeruginosa) (mallei) (pseudomallei) as the cause of diseases classified elsewhere; L03.317 Cellulitis of buttock; R06.02 Shortness of breath; J44.9 Chronic obstructive pulmonary disease, unspecified; R26.89 Other abnormalities of gait and mobility; L89.329 Pressure ulcer of left buttock, unspecified stage; L89.313 Pressure ulcer of right buttock, stage 3; N18.9 Chronic kidney disease, unspecified; M19.90 Unspecified osteoarthritis, unspecified site; B95.62 Methicillin resistant Staphylococcus aureus infection as the cause of diseases classified elsewhere
CPT/HCPCS: 36415; 80053; 80202; 82565; 85025; 87040; 87070; 87075; 87077; 87186; 87205; 94640; 94760; 97110; 97112; 97162; 97530; A4222; J1642; J2185; J2270; J2543; J3370; J3490; J7030; J7050; J7060; J7620